=== PATIENT | female | born 1960 | race Hispanic/Latino ===

== ENCOUNTER 2020-03-06 13:14 | Inpatient (IN) | payer OTHER ==
[~2020-03-06] VITALS: Ht 160 cm; Wt 71.0 kg
[2020-03-06] MEDS ORDERED: DEXAMETHASONE SOD PHOS 10 MG/1 ML VIAL IV ONE (14:00)
[2020-03-06] MEDS ORDERED: AZITHROMYCIN 500MG/NS 250 ML 250 ML IV ONE (14:00)
[2020-03-06] MEDS ORDERED: SODIUM CHLORIDE 0.9% 500ML 500 ML IV ONE ×2 (14:00→16:30)
[2020-03-06] MEDS ORDERED: ACETAMINOPHEN 325 MG TAB PO NR (14:00)
[2020-03-06] MEDS ORDERED: SODIUM CHLORIDE 0.9% 1000ML 1,000 ML ONE ×2 (14:13→16:27)
[2020-03-06] MEDS ORDERED: ACETAMINOPHEN 325 MG TAB ONE (14:13)
[2020-03-06] MEDS ORDERED: DEXAMETHASONE SOD PHOS 10 MG/1 ML VIAL ONE (14:13)
[2020-03-06] MEDS ORDERED: AZITHROMYCIN 500MG/NS 250 ML 250 ML ONE (14:14)
--- NOTE | 2020-03-06 14:25 | Diagnostic Imaging Report ---
EXAMINATION: CXR 1 [facility] INDICATION: ^hypoxia ^[id number] ^1413 COMPARISON: None FINDINGS: AP view TUBES and LINES: None. LUNGS: Lungs are well inflated. Bilateral mid to lower lung field airspace opacities. PLEURA: No pleural effusion or pneumothorax. HEART AND MEDIASTINUM: The cardiomediastinal silhouette is enlarged. BONES AND SOFT TISSUES: No acute osseous lesion. Soft tissues are unremarkable. UPPER ABDOMEN: No free air under the diaphragm. IMPRESSION: Bilateral mid to lower lung field airspace opacities, representing moderate pulmonary edema and/or pneumonia in the appropriate clinical context. Signed by: Dr. Preston Martin MD on 03/06/2020 2:22 PM
[2020-03-06] MEDS ORDERED: VECURONIUM BROMIDE FOR INJ 20 MG VIAL ONE (14:47)
[2020-03-06] MEDS ORDERED: MIDAZOLAM HCL 2 MG/2 ML VIAL ONE (14:47)
[2020-03-06] MEDS ORDERED: SUCCINYLCHOLINE CHLORIDE 20 MG/ML 10ML VIAL ONE (14:47)
[2020-03-06] MEDS ORDERED: ENOXAPARIN SODIUM INJ 100 MG/ML SYR SC SCH (15:15)
[2020-03-06] MEDS ORDERED: CEFTRIAXONE SOD 1 GM/NS 50 ML 50 ML IV ONE ×2 (15:15→16:27)
[2020-03-06] MEDS ORDERED: SODIUM CHLORIDE FLUSH 10 ML SYR INJ PRN (16:15)
[2020-03-06] MEDS ORDERED: ENOXAPARIN SODIUM INJ 100 MG/ML SYR SC ONE (16:27)
--- NOTE | 2020-03-06 16:42 | NUR ---
FAMILY GIVEN UPDATE
[2020-03-06 18:00] VITALS: BP 157/73
[2020-03-06] MEDS ORDERED: GUAIFENESIN/CODEINE 10 ML CUP PO PRN (18:15)
[2020-03-06] MEDS ORDERED: DEXMEDETOMIDINE 200MCG/NS 50ML 50 ML IV PRN (18:25)
--- NOTE | 2020-03-06 18:32 | Consultation ---
DATE OF CONSULTATION: Pulmonary Critical Care Consultation CHIEF COMPLAINT: Dyspnea and fevers. HISTORY OF PRESENT ILLNESS: The patient is a 59-year-old woman. She has a history of hypertension. She denies any prior respiratory problems. She denies any cardiac problems. She reports feeling ill for the past 7 to 8 days. She has noticed fevers. She also has some dyspnea that worsened over the past 2 days. She has some cough. She denies chest pain. There is no nausea or vomiting. PAST SURGICAL HISTORY: 1. Status post abdominoplasty. 2. Status post cholecystectomy. PAST MEDICAL HISTORY: 1. Hypertension. 2. No prior respiratory problems. 3. No prior cardiac disease. 4. No history of diabetes. ALLERGIES: NO KNOWN DRUG ALLERGIES. SOCIAL HISTORY: The patient has never been a smoker. She is not a drinker. REVIEW OF SYSTEMS: The patient does report some fevers. There are no headache. There is no chest pain. She does have some dyspnea. She has no abdominal pain. There is no nausea or vomiting. She has no leg edema. PHYSICAL EXAMINATION: VITAL SIGNS: Shows a blood pressure of 141/64 and saturation of 93%, currently on Vapotherm. HEENT: Shows no facial swelling or erythema. CARDIAC: Reveals regular rate and rhythm with normal S1 and S2. LUNGS: Auscultation of lungs reveals clear breath sounds bilaterally. There is no wheezing. ABDOMEN: Soft and nontender. There is no rebound or guarding. EXTREMITIES: Shows no leg edema or calf tenderness. There is no cyanosis or clubbing. SKIN: Shows no rashes. NEUROLOGICAL: Shows no focal abnormalities. RADIOGRAPHIC DATA: Chest x-ray shows bilateral airspace disease, suggestive of viral pneumonia. IMPRESSION: 1. Acute respiratory failure. 2. Viral pneumonia and COVID-19. 3. Hypertension. PLAN: 1. Vapotherm. 2. Lovenox. 3. Decadron. 4. Zithromax and Rocephin. 5. Repeat electrolytes, BUN and creatinine. 6. Place the patient in prone position. Brandon Avitia MD LM/THOMASL /[id number]
--- NOTE | 2020-03-06 18:43 | NUR ---
CONSULTATION [id number]
[2020-03-06 18:58] LABS: ALANINE AMINOTRANSFERASE 24 IU/L (0-55); ALBUMIN 2.9 g/dL (3.5-5.0); ALBUMIN/GLOBULIN RATIO 0.7 (0.8-2.0); ALKALINE PHOSPHATASE 63 IU/L (40-150); BLOOD UREA NITROGEN 14 mg/dL (7-26); BUN/CREATININE RATIO 19 (6-25); CALCIUM 8.3 mg/dL (8.4-10.2); CARBON DIOXIDE 19 mmol/L (22-29); CHLORIDE 100 mmol/L (98-107); CREATININE, SERUM 0.74 mg/dL (0.57-1.11); EST GLOMERULAR FILTRATION RATE > 60 ML/MIN (60-); GLUCOSE 173 mg/dL (74-118); SODIUM 132 mmol/L (136-145)
[2020-03-06 19:00] VITALS: BP 120/56
[2020-03-06] MEDS ORDERED: REMDESIVIR 200MG/NS 100ML 200 MG in SODIUM CHLORIDE 0.9% 100 ML 100 ML IV NR (19:00)
[2020-03-06 20:00] VITALS: BP 103/55
[2020-03-06 21:00] VITALS: BP 92/51
[2020-03-06 22:28] VITALS: BP 91/55
[2020-03-06 23:00] VITALS: BP 125/64
[2020-03-07] VITALS (23 sets, daily range): BP systolic 91–139; BP diastolic 48–92
--- NOTE | 2020-03-07 04:17 | Emergency Department Note ---
History of Present Illnes History of Present Illness Chief Complaint: COVID PUI History of Present Illness This is a 59 year old female, with a history of hypertension who presents with acute onset shortness of breath that started last night, and worsening throughout the day today. Patient states that she has had a fever and chills for the past week, over 101. She denies any cough, upper respiratory symptoms, nausea, vomiting, diarrhea, chest pain, or tightness. She has had some dyspnea on exertion. Patient was tested for Covid19 last week, and received the results today, which indicated that both patient and her spouse are both positive for Covid 19. Patient states that her symptoms seemed to worsen after she received this news today. Patient has no history of asthma, and she has never smoked. Patient saw her doctor yesterday, and was prescribed a Z-Schuyler, ondansetron, and promethazine DM. She did take these medications yesterday. Historian: Patient Arrival Mode: Car [employer] Required: No Onset (how long ago): week(s) (1) Location: chest Quality: SOB Radiation: Denies non-radiation Severity: moderate Onset quality: gradual Duration (how long): hour(s) (24) Timing of current episode: constant Progression: worsening Chronicity: new Context: Denies recent illness, Denies recent immobilization, Denies new medications, Denies hx of DVT/PE Relieving factors: rest Exacerbating factors: movement Associated symptoms: Reports fever/chills, Reports shortness of breath; Denies chest pain, Denies cough, Denies nausea/vomiting Treatments prior to arrival: none Risk factors: age, obese, HTN Past Medical/Family History Physician Review I have reviewed the patient's past medical and family history. Any updates have been documented here. Past Medical History Recent Fever: Yes Clinical Suspicion of Infectio: Yes New/Unexplained Change in Ment: No Past Medical History: Hypertension Past Surgical History: Cholecysctectomy Other Surgery: Abdominoplasty Social History Smoking Cessation: Never Smoker Counseling Performed: No Alcohol Use: None Any Illegal Drug Use: No TB Exposure/Symptoms: No Physically hurt or threatened: No Family History Family history of heart diseas: No Other Last Tetanus: unknown Any Pre-Existing Lines (PICC,: No Review of Systems Review of Systems Constitutional: Reports chills, Reports fever, Reports malaise EENTM: Denies no symptoms Cardiovascular: Denies chest pain, Denies palpitations Respiratory: Reports dyspnea, Reports dyspnea on exertion; Denies chest congestion, Denies cough, Denies pain on inspiration, Denies pain with cough Gastrointestinal: Denies abdominal pain, Denies nausea, Denies vomiting Genitourinary: Reports no symptoms Musculoskeletal: Denies back pain, Denies muscle stiffness, Denies neck pain Integumentary: Reports no symptoms Neurological: Denies headache, Denies tingling, Denies weakness Psychological: Reports no symptoms, Reports depressed Endocrine: Reports no symptoms Review of other systems: All other systems negative Physical Exam Related Data Allergies: Coded Allergies: No Known Allergies (Unverified , 03/06/20) Triage Vital Signs Vital Signs Date Time Temp Pulse Resp B/P (MAP) Pulse Ox O2 Delivery O2 Flow Rate FiO2 03/06/20 13:25 100.6 102 29 149/75 59 Room Air 03/06/20 14:01 6.0 Vital signs reviewed: Yes Physical Exam CONSTITUTIONAL Constitutional: Present well-developed, Present well-nourished, Present ill appearing (slight increased respiratory rate, with no distress and no retractions) HENT HENT: Present normocephalic, Present atraumatic, Present oropharynx clear/ moist, Present nose normal; Absent nasal discharge, Absent nasal congestion HENT L/R: Present left ext ear normal, Present right ext ear normal EYES Eyes: Reports PERRL, Reports conjunctivae normal NECK Neck: Present ROM normal; Absent thyromegaly PULMONARY Pulmonary: Present other (diminished breath sounds throughout both lung blackmon, with an occasional crackle, no wheezing or rhonchi. Patient's increased respiratory rate but no stridor or increased respiratory effort. She appears comfortable.); Absent rhonchi, Absent chest tenderness CARDIOVASCULAR Cardiovascular: Present regular rhythm, Present heart sounds normal, Present capillary refill normal, Present normal rate GASTROINTESTINAL Abdominal: Present soft, Present nontender, Present bowel sounds normal; Absent tender GENITOURINARY Genitourinary: Present exam deferred SKIN Skin: Present warm, Present dry; Absent rash MUSCULOSKELETAL Musculoskeletal: Present ROM normal NEUROLOGICAL Neurological: Present alert, Present oriented x 3 PSYCHOLOGICAL Psychological: Present mood/affect normal, Present behavior normal Results Laboratory Result Diagram: 03/06/20 1820 Laboratory Laboratory Tests Test 03/06/20 18:20 Sodium Level 132 mmol/L (136-145) Potassium Level 4.0 mmol/L (3.5-5.1) Chloride Level 100 mmol/L (98-107) Carbon Dioxide Level 19 mmol/L (22-29) Anion Gap 17.0 mmol/L (8-16) Blood Urea Nitrogen 14 mg/dL (7-26) Creatinine 0.74 mg/dL (0.57-1.11) Estimat Glomerular Filtration Rate > 60 ML/MIN (60-) BUN/Creatinine Ratio 19 (6-25) Glucose Level 173 mg/dL (74-118) Calcium Level 8.3 mg/dL (8.4-10.2) Total Bilirubin 0.4 mg/dL (0.2-1.2) Aspartate Amino Transf (AST/SGOT) 60 IU/L (5-34) Alanine Aminotransferase (ALT/SGPT) 24 IU/L (0-55) Alkaline Phosphatase 63 IU/L (40-150) Total Protein 6.9 g/dL (6.5-8.1) Albumin 2.9 g/dL (3.5-5.0) Globulin 4.0 g/dL (2.3-3.5) Albumin/Globulin Ratio 0.7 (0.8-2.0) Lab results reviewed: Yes Laboratory comments ER Labs 03/06/2020: UA - ket - trace, pro - 30 mg/dl, leuk- small; CBC - WBC = 10.7, otherwise normal Metlac = Lactic Acid elevated = 2.53. Cl = 92; BNP - nl; Cardiacs nl; D-dimer = 1950; Repeat Lactic Acid in 2 hours = 1.41; Imaging Imaging results reviewed: Yes Impressions [place] [address] Patient Name: YAW WILLAMS MR #: [id number] : 1960 Age/Sex: 59/F Req #: [id number] Adm Physician: Ordered by: RADHA ERNST MD Report #: [id number] Location: [facility] Room/Bed: Procedure: [id number] HOPD/CXR 1 VEW - [facility] Exam Date: 03/06/20 Exam Time: 1413 REPORT STATUS: Signed EXAMINATION: CXR 1 [facility] - [facility] INDICATION: ^hypoxia ^[id number] ^1413 COMPARISON: None FINDINGS: AP view TUBES and LINES: None. LUNGS: Lungs are well inflated. Bilateral mid to lower lung field airspace opacities. PLEURA: No pleural effusion or pneumothorax. HEART AND MEDIASTINUM: The cardiomediastinal silhouette is enlarged. BONES AND SOFT TISSUES: No acute osseous lesion. Soft tissues are unremarkable. UPPER ABDOMEN: No free air under the diaphragm. IMPRESSION: Bilateral mid to lower lung field airspace opacities, representing moderate pulmonary edema and/or pneumonia in the appropriate clinical context. Signed by: Dr. Preston Call MD on 03/06/2020 2:22 PM Dictated By: PRESTON CALL MD 1422 Transcribed By: NOELLE on 03/06/20 1422 COPY TO: RADHA ERNST MD~ Now Diagnostics Tests Diagnostic test(s) reviewed: Yes Assessment & Plan Medical Decision Making MDM - Patient diagnosed with Covid 19, now with Covid pneumonia and significant hypoxia. Patient is on nonrebreather with sats at 90 and 92%. - Patient met initial sepsis criteria due to tachycardia, increased respiratory rate, suspected Covid pneumonia and elevated lactic acid level. Patient received gentle hydration, IV antibiotics for pneumonia and it two-hour repeat lactic acid was within normal limits. - Discussed with Dr. Stone, who was agreeable to admitting patient to the ICU it [facility]. Request Dr. Avitia, pulmonary, to consult. I attempted to contact Dr. Andrea Avitia by phone, 3 times, without access. The floor will notify him once patient arrives to the ICU., - Updated patient's spouse, by phone, her condition, diagnoses, and transferred to the ICU it [facility]. The spouse voiced understanding of the plan, and his questions were answered. Sepsis Protocol followed due to: COVID pneumonia, tachycardia, increased RR, and Lactic Acid = 2.54. Time Zero = 14:15, Rocephin and Zithromax infused for Pneumonia, after BC obtained. Repeat Lactic Acid drawn in 2 hours, and was 1.4. 30cc/kd IV fluid bolus was not given, due to patient having COvid Pneumonia and patient was never hypotensive. Assessment & Plan Final Impression: (1) Pneumonia due to COVID-19 virus (2) Hypoxia (3) Sepsis (4) Hypertension Depart Disposition: ADMITTED (Transferred to [facility] via EMS, to the MICU;) Last Vital Signs Date Time Temp Pulse Resp B/P (MAP) Pulse Ox O2 Delivery O2 Flow Rate FiO2 03/07/20 03:00 Nasal Cannula 40.0 03/07/20 03:00 98.5 70 18 103/51 (68) 96 Medications in the ED Sodium Chloride 500 ml @ 0 mls/hr Q0M ONCE IV Last administered on 03/06/20at 14:15; Admin Dose 500 MLS/HR; Start 03/06/20 at 14:00; Stop 03/06/20 at 14:01; Status DC Dexamethasone Sodium Phosphate 10 mg ONCE ONCE IV Last administered on 03/06/20at 14:15; Admin Dose 10 MG; Start 03/06/20 at 14:00; Stop 03/06/20 at 14:08; Status DC Acetaminophen 975 mg ONCE PO Last administered on 03/06/20at 14:20; Admin Dose 975 MG; Start 03/06/20 at 14:00; Stop 03/06/20 at 15:00; Status DC Azithromycin 250 ml @ 250 mls/hr NOW ONCE IV Last administered on 03/06/20at 14:17; Admin Dose 250 MLS/HR; Start 03/06/20 at 14:00; Stop 03/06/20 at 14:59; Status DC Dexamethasone Sodium Phosphate 10 mg STK-MED ONCE .ROUTE ; Start 03/06/20 at 14:13; Stop 03/06/20 at 14:08; Status DC Acetaminophen 975 mg STK-MED ONCE .ROUTE ; Start 03/06/20 at 14:13; Stop 03/06/20 at 14:08; Status DC Sodium Chloride 1,000 ml @ ud STK-MED ONCE .ROUTE ; Start 03/06/20 at 14:13; Stop 03/06/20 at 14:08; Status DC Azithromycin 250 ml @ ud STK-MED ONCE .ROUTE ; Start 03/06/20 at 14:14; Stop 03/06/20 at 14:08; Status DC Ceftriaxone Sodium 50 ml @ 100 mls/hr ONCE ONCE IV Last administered on 03/06/20at 16:30; Admin Dose 100 MLS/HR; Start 03/06/20 at 15:15; Stop 03/06/20 at 15:44; Status DC Enoxaparin Sodium 80 mg ONCE SC Last administered on 03/06/20at 16:25; Admin Dose 80 MG; Start 03/06/20 at 15:15; Stop 03/06/20 at 17:05; Status DC RADHA ERNST MD Mar 07, 2020 04:17
[2020-03-07 05:25] LABS: BASOPHILS % 0.1 % (0.0-1.0); HEMATOCRIT 35.3 % (34.2-44.1); HEMOGLOBIN 12.1 g/dL (12.0-16.0); LYMPHOCYTES # (AUTO) 0.9 (1.0-3.2); LYMPHOCYTES % 7.9 % (18.0-39.1); MEAN CORPUSCULAR HEMOGLOBIN 29.7 pg (28-32); MEAN CORPUSCULAR HGB CONC 34.3 g/dL (31-35); MEAN CORPUSCULAR VOLUME 86.5 fL (81-99); MONOCYTES # (AUTO) 0.2 (0.2-0.8); MONOCYTES % 1.8 % (4.4-11.3); NEUTROPHILS # (AUTO) 9.7 (2.1-6.9); NEUTROPHILS % 89.4 % (38.7-80.0); PLATELET COUNT 203 x10e3/uL (140-360); RED BLOOD COUNT 4.08 x10e6/uL (3.6-5.1); RED CELL DISTRIBUTION WIDTH 12.6 % (11.7-14.4)
[2020-03-07 07:21] LABS: ALANINE AMINOTRANSFERASE 27 IU/L (0-55); ALBUMIN 2.7 g/dL (3.5-5.0); ALBUMIN/GLOBULIN RATIO 0.6 (0.8-2.0); ALKALINE PHOSPHATASE 71 IU/L (40-150); ANION GAP 14.1 mmol/L (8-16); BLOOD UREA NITROGEN 14 mg/dL (7-26); BUN/CREATININE RATIO 21 (6-25); CALCIUM 8.8 mg/dL (8.4-10.2); CARBON DIOXIDE 23 mmol/L (22-29); CHLORIDE 103 mmol/L (98-107); CREATININE, SERUM 0.66 mg/dL (0.57-1.11); EST GLOMERULAR FILTRATION RATE > 60 ML/MIN (60-); GLUCOSE 156 mg/dL (74-118); POTASSIUM 4.1 mmol/L (3.5-5.1); SODIUM 136 mmol/L (136-145)
--- NOTE | 2020-03-07 08:52 | Diagnostic Imaging Report ---
EXAMINATION: CHEST SINGLE (PORTABLE) INDICATION: Viral pneumonia COMPARISON: Chest radiograph 03/06/2020 FINDINGS: LINES/TUBES:None LUNGS:Interval increase in bilateral lower lung predominant hazy and consolidative opacities. PLEURA:No pleural effusion or pneumothorax. MEDIASTINUM:The cardiomediastinal silhouette appears normal in size and shape. BONES/SOFT TISSUES:No acute osseous injury. ABDOMEN:No free air under the diaphragm. IMPRESSION: Interval increase in bilateral lower lung hazy and consolidative opacities, consistent with provided history of viral pneumonia. Signed by: Alejandro Dwyer MD on 03/07/2020 8:48 AM
[2020-03-07] MEDS: ENOXAPARIN SOD INJ 40 MG/0.4 ML SYR SC SCH ×2 (08:59→20:47)
[2020-03-07] MEDS ORDERED: AZITHROMYCIN 500MG/SOD CHL 0.9% 250ML BAG IV SCH (09:00)
[2020-03-07] MEDS ORDERED: CEFTRIAXONE SOD 1 GRAM/0.9% SOD CHL 50ML BAG IV SCH (09:00)
[2020-03-07] MEDS ORDERED: DEXAMETHASONE PHOS 4MG/ML 5ML MULTIDOSE VIAL IV SCH (09:00)
--- NOTE | 2020-03-07 09:31 | NUR ---
PATIENT PRONED. TOLERATED WELL.
--- NOTE | 2020-03-07 11:05 | Progress Note ---
DATE: Pulmonary Critical Care Progress Note SUBJECTIVE: The patient is on Vapotherm in the prone position. She has Precedex. She is on 40 L with 100% and is saturating at 100%. She does not appear in distress. PHYSICAL EXAMINATION: VITAL SIGNS: The patient is afebrile. The blood pressure is 124/61 and saturation is 98%. Pulse is 73. HEENT: Shows no facial swelling or erythema. CARDIAC: Normal cardiac exam with a regular rate and rhythm with normal S1 and S2. LUNGS: Auscultation of lungs reveals crackles at the bases. There is no wheezing. ABDOMEN: Soft and nontender. There is no rebound or guarding. EXTREMITIES: Shows no leg edema or calf tenderness. There is no cyanosis or clubbing. SKIN: Shows no rashes. NEUROLOGICAL: Shows no focal abnormalities. LABORATORY DATA: The white blood cell count is 10.9 and hemoglobin is 12.1. Platelet count is 203. BUN to creatinine ratio is 14 to 0.66. Other electrolytes are within normal limits. The albumin is 2.7. RADIOGRAPHIC DATA: Chest x-ray is significant for bilateral hazy infiltrates. IMPRESSION: 1. Acute respiratory failure. 2. COVID-19 and viral pneumonia. 3. Hypertension. PLAN: 1. Continue Vapotherm. 2. Continue to use prone ventilation as much as possible. 3. Continue Precedex. 4. The patient started on remdesivir. 5. Continue Decadron. 6. Zithromax and Rocephin. 7. Case discussed with Respiratory, nursing, Internal Medicine, and the patient. Greater than 35 minutes in direct critical care time. Brandon Avitia MD [facility]/MODL /[id number]
[2020-03-07] MEDS: DEXAMETHASONE PHOS 4MG/ML 6 MG in SODIUM CHLORIDE 0.9% 50ML 50 ML IV SCH (12:00)
[2020-03-07] MEDS ORDERED: ACETAMINOPHEN 325 MG SUPP PR PRN (12:00)
[2020-03-07] MEDS: REMDESIVIR 100MG/NS 100ML 100 MG in SODIUM CHLORIDE 0.9% 100 ML 100 ML IV SCH (14:00)
[2020-03-07] MEDS: AZITHROMYCIN 500MG/NS 250 ML 250 ML IV SCH (14:32)
[2020-03-07] MEDS: CEFTRIAXONE SOD 1 GM/NS 50 ML 50 ML IV SCH (15:30)
[2020-03-07] MEDS: ASCORBIC ACID 500 MG TAB PO SCH ×2 (16:21→17:00)
[2020-03-07] MEDS: ZINC SULFATE 220 MG CAP PO SCH ×2 (16:21→17:00)
[2020-03-07] MEDS: FAMOTIDINE 20 MG/2 ML VIAL IV SCH (16:21)
[2020-03-07] MEDS: ONDANSETRON HCL INJ 2MG/ML 2ML 2 MG/ML VIAL IV PRN (16:30)
--- NOTE | 2020-03-07 16:52 | Progress Note ---
DATE: SUBJECTIVE: Ms. Gooden is currently in the intensive care unit. She is feeling better. She is on remdesivir day #2. PHYSICAL EXAMINATION: GENERAL: She is currently alert, oriented, does not seem in acute distress. VITAL SIGNS: Stable, currently afebrile. HEENT: She is not icteric. NECK: Supple. CHEST: Crackles bilateral. COR: S1, S2. No murmurs. ABDOMEN: Soft. Bowel sounds present. No tenderness. EXTREMITIES: No edema. IMPRESSION: Coronavirus disease-19, respiratory failure, hypertension. Day #2 remdesivir, Decadron 10 days, azithromycin, Rocephin. Respiratory management as per Critical Care. We will follow. MD MARJAN Rapp/SHELLIE /[id number]
--- NOTE | 2020-03-07 18:53 | Consultation ---
DATE OF CONSULTATION: HISTORY OF PRESENT ILLNESS: Ms. Gooden is a 59-year-old female who has history of hypertension, comes in with fever and chills for 8 days. The patient has history of cholecystectomy and hypertension. The patient came to the hospital. Blood cultures are negative. Her white count is 10, hemoglobin 12. Sodium 136, potassium 4.1. PHYSICAL EXAMINATION: GENERAL: She is currently alert, oriented, does not seem in acute distress. VITAL SIGNS: Stable, currently afebrile and she is currently on high-flow 40% oxygen. HEENT: She is not icteric. NECK: Supple. CHEST: Crackles bilaterally. COR: S1 and S2. ABDOMEN: Soft. IMPRESSION AND PLAN: Coronavirus disease-19 pneumonia, superimposed bacterial pneumonia. We will put the patient on Lovenox 0.5 mg/kg q.12 hours, Rocephin 1 g daily five days, azithromycin 10 mg daily for 3 days, and dexamethasone 6 mg daily. Remdesivir was started. The patient did agree to it. Discussed with the patient that remdesivir is still experimental drug and she is agreed to it. We will start at 200 mg IV piggyback down then 100 daily for four more days. MD MARJAN Rapp/SHELLIE /[id number]
--- NOTE | 2020-03-07 19:22 | NUR ---
Patient with noted respiratory effort, Dr Rodney Avitia to bedside; decision to intubate.
[2020-03-07] MEDS ORDERED: MIDAZOLAM HCL 5MG/ML 10ML VIAL 100 ML IV ONE (19:36)
--- NOTE | 2020-03-07 20:13 | Operative Report ---
DATE OF PROCEDURE: SURGEON: Brandon Avitia MD PROCEDURE: Endotracheal intubation with a GlideScope. PREOPERATIVE DIAGNOSIS: Respiratory failure. POSTOPERATIVE DIAGNOSIS: Respiratory failure. MEDICATIONS: Versed 1 mg, etomidate 20 mg, and succinylcholine 100 mg. CONSENT: Consent was obtained from the patient. DESCRIPTION OF PROCEDURE: The patient was placed in a supine position. She was preoxygenated with a Vapotherm. She received Versed followed by etomidate and succinylcholine. She required Ambu bagging with a PEEP valve and oral airway prior to intubation. Her saturating increased to the mid 90s. A 3-0 Mac blade was used to visualize the glottis. A 7.5 endotracheal tube was passed on the first attempt. There was good CO2 return and equal breath sounds bilaterally. The patient required Ambu bag. Again after intubation, she increases sats into the mid 90s. COMPLICATIONS: None. ESTIMATED BLOOD LOSS: None. Brandon Avitia MD [facility]/THOMASL /[id number]
[2020-03-07] MEDS ORDERED: SODIUM CHLORIDE 0.9% 500ML 500 ML ONE (21:00)
--- NOTE | 2020-03-07 22:24 | Diagnostic Imaging Report ---
EXAMINATION: CHEST XRAY LINE PLACEMENT INDICATION: ^pIcc LINE, ett, OG PLACEMENT ^[id number] ^2123 ^Y COMPARISON: Chest x-ray 03/07/2020 None FINDINGS: TUBES and LINES: ET tube 7 mm above indio. Enteric tube courses into abdomen, tip in the left upper abdomen. Right upper extremity PICC tip terminates in the expected location of the left innominate vein. LUNGS: Normal lung volumes. Haziness in the right upper to lower lung and left mid to lower lung. PLEURA: No pleural effusion or pneumothorax. HEART AND MEDIASTINUM: The cardiomediastinal silhouette is unremarkable. BONES AND SOFT TISSUES: No acute osseous lesion. Soft tissues are unremarkable. UPPER ABDOMEN: No free air under the diaphragm. IMPRESSION: ET tube 7 mm above indio, suboptimal/low position, recommend 2-3 cm retraction. Right upper extremity PICC tip terminates in the expected location of the left innominate vein, suboptimal position. Enteric tube courses into abdomen, tip in the left upper abdomen. Extensive airspace disease. Signed by: Colton Vera DO on 03/07/2020 10:20 PM
--- NOTE | 2020-03-07 22:27 | Diagnostic Imaging Report ---
EXAM: Abdomen Radiograph 1 View) INDICATION: Enteric tube placement, verify position COMPARISON: Same-day chest x-ray FINDINGS: Haziness in the lower lungs. Enteric tube courses into the stomach, to the pylorus, and back up to the proximal gastric body lumen. Normal volume of stool in the colon. No dilated loops of small bowel. No abnormal abdominal calcifications.. No abnormal soft tissue masses. No pneumoperitoneum. No acute osseous abnormality. IMPRESSION: Enteric tube courses into the stomach, to the pylorus, and back up to the expected location of the proximal gastric body lumen. Haziness in the lower lungs. Signed by: Colton Vera DO on 03/07/2020 10:24 PM
[2020-03-07] MEDS ORDERED: LACTATED RINGER'S 1,000 ML INJ ONE (23:00)
[2020-03-08] VITALS (33 sets, daily range): BP systolic 96–122; BP diastolic 47–61
--- NOTE | 2020-03-08 00:07 | Diagnostic Imaging Report ---
EXAMINATION: CHEST XRAY LINE PLACEMENT INDICATION: PICC placement, verify position. COMPARISON: Earlier same day chest x-ray FINDINGS: TUBES and LINES: Mild advancement of the ET tube now with tip at the right main stem bronchus origin. Interval repositioning of right upper extremity PICC, now with tip in the superior cavoatrial junction. Enteric tube tip in the left upper abdomen. LUNGS: Normal lung volumes. Hazy mid/lower lungs bilaterally, worse in the medial left lower lobe with partial hemidiaphragm obscuration... PLEURA: No pleural effusion or pneumothorax. HEART AND MEDIASTINUM: The cardiomediastinal silhouette is unremarkable. BONES AND SOFT TISSUES: No acute osseous lesion. Soft tissues are unremarkable. UPPER ABDOMEN: No free air under the diaphragm. IMPRESSION: Slight advancement of the ET tube now with tip at the right main stem bronchus origin, recommend 3 cm retraction. Partial obscuration of the central left hemidiaphragm, left lower lobe atelectasis is possible. Interval repositioning of right upper extremity PICC, now with tip in the superior cavoatrial junction, ideal in position. Signed by: Colton Vera DO on 03/08/2020 12:04 AM
--- NOTE | 2020-03-08 00:33 | NUR ---
X-ray results read to Ankit LUCAS PICC line nurse. Ordered okay to use. Sanjana LUCAS notified as well.
[2020-03-08 00:49] LABS: ABG PCO2 27 mmHg (35-45); ABG PH 7.43 (7.35-7.45); ABG PO2 99 mmHg (80-105)
[2020-03-08 00:50] LABS: ABG HCO3 18 mmol/L (22-26)
[2020-03-08] MEDS: MIDAZOLAM HCL 5MG/ML 10ML VIAL 100 ML IV PRN (01:21)
[2020-03-08 05:48] LABS: BASOPHILS % 0.1 % (0.0-1.0); HEMATOCRIT 33.8 % (34.2-44.1); HEMOGLOBIN 11.6 g/dL (12.0-16.0); LYMPHOCYTES # (AUTO) 0.8 (1.0-3.2); LYMPHOCYTES % 6.7 % (18.0-39.1); MEAN CORPUSCULAR HEMOGLOBIN 30.1 pg (28-32); MEAN CORPUSCULAR HGB CONC 34.3 g/dL (31-35); MEAN CORPUSCULAR VOLUME 87.8 fL (81-99); MONOCYTES # (AUTO) 0.4 (0.2-0.8); MONOCYTES % 3.2 % (4.4-11.3); NEUTROPHILS # (AUTO) 10.9 (2.1-6.9); NEUTROPHILS % 88.7 % (38.7-80.0); PLATELET COUNT 237 x10e3/uL (140-360); RED BLOOD COUNT 3.85 x10e6/uL (3.6-5.1); RED CELL DISTRIBUTION WIDTH 12.7 % (11.7-14.4)
[2020-03-08 06:44] LABS: ALANINE AMINOTRANSFERASE 26 IU/L (0-55); ALBUMIN 2.4 g/dL (3.5-5.0); ALBUMIN/GLOBULIN RATIO 0.6 (0.8-2.0); ALKALINE PHOSPHATASE 71 IU/L (40-150); ANION GAP 14.3 mmol/L (8-16); BUN/CREATININE RATIO 33 (6-25); CALCIUM 8.3 mg/dL (8.4-10.2); CARBON DIOXIDE 21 mmol/L (22-29); CHLORIDE 107 mmol/L (98-107); CREATININE, SERUM 0.66 mg/dL (0.57-1.11); EST GLOMERULAR FILTRATION RATE > 60 ML/MIN (60-); GLUCOSE 154 mg/dL (74-118); POTASSIUM 4.3 mmol/L (3.5-5.1); SODIUM 138 mmol/L (136-145)
[2020-03-08 06:53] LABS: BLOOD UREA NITROGEN 22 mg/dL (7-26)
[2020-03-08 07:18] LABS: CHOL/HDL RATIO 6.4 (3.0-3.6); MAGNESIUM 2.4 MG/DL (1.3-2.1); PHOSPHORUS 3.1 MG/DL (2.3-4.7)
[2020-03-08 07:38] LABS: THYROID STIMULATING HORMONE 0.567 uIU/mL (0.350-4.940)
[2020-03-08 08:38] LABS: ABG PH 7.42 (7.35-7.45)
[2020-03-08 08:39] LABS: ABG HCO3 22 mmol/L (22-26); ABG PCO2 33 mmHg (35-45); ABG PO2 226 mmHg (80-105)
--- NOTE | 2020-03-08 08:45 | Diagnostic Imaging Report ---
X-ray chest AP portable Comparison: 03/07/2020 History: Covid Findings: The endotracheal tube may be retracted approximately 3 cm. A nasogastric tube is seen coursing down the expected past with the tip in the left upper quadrant of abdomen. PICC line is seen in place with the tip overlying right atrium. There is no pleural effusion. There is no pneumothorax. There is dense bilateral airspace disease with slight improvement compared with the previous exam. No acute bony or extrathoracic soft tissue changes. Impression: Slight improvement in the aeration. The endotracheal tube may be retracted approximately 2-3 cm. Signed by: Dominick Rodriguez MD on 03/08/2020 8:42 AM
[2020-03-08] MEDS ORDERED: SODIUM CHLORIDE 0.9% 250ML 250 ML ONE ×2 (08:46→16:56)
[2020-03-08] MEDS: ZINC SULFATE 220 MG CAP PO SCH ×2 (08:52→17:30)
[2020-03-08] MEDS: ASCORBIC ACID 500 MG TAB PO SCH ×2 (08:52→17:30)
[2020-03-08] MEDS: ENOXAPARIN SOD INJ 40 MG/0.4 ML SYR SC SCH ×2 (08:52→20:30)
[2020-03-08] MEDS: FAMOTIDINE 20 MG/2 ML VIAL IV SCH ×2 (08:52→17:30)
--- NOTE | 2020-03-08 10:06 | Operative Report ---
DATE OF PROCEDURE: SURGEON: Brandon Avitia MD PROCEDURE: Arterial line placement under ultrasound guidance. PREOPERATIVE DIAGNOSIS: Respiratory failure. POSTOPERATIVE DIAGNOSIS: Respiratory failure. CONSENT: Consent was obtained from the patient. MEDICATIONS: The patient was on Versed and fentanyl drip at the time of the procedure. 1% lidocaine for local anesthesia. DESCRIPTION OF PROCEDURE: Left wrist was prepped sterilely. An ultrasound machine was used to locate the radial artery. The radial artery was cannulated with a 20-gauge needle. I was unable to pass the wire through the needle. The needle was removed and pressure was held. The patient was re-prepped in the right wrist. The radial artery was located with an ultrasound machine. The radial artery was cannulated with a 20-gauge needle under direct visualization. A wire was passed through the needle without difficulty and a 20-gauge catheter was passed over the wire by the Seldinger technique. COMPLICATIONS: None. ESTIMATED BLOOD LOSS: None. Brandon Avitia MD [facility]/MODL /[id number]
--- NOTE | 2020-03-08 10:09 | Progress Note ---
DATE: SUBJECTIVE: The patient was intubated last night. She is now on a PRVC mode of ventilation at a rate of 28 with a tidal volume of 350. Her PEEP is set at 16 and FiO2 is set at 70%. Her saturation is 98%. She is on Versed and fentanyl. She continues to have some bradycardia. PHYSICAL EXAMINATION: VITAL SIGNS: The blood pressure is 108/51 and the heart rate is 54. Saturation is 100%. HEENT: No facial swelling or erythema. CARDIAC: Bradycardia with normal S1, S2. LUNGS: Auscultation of lungs reveals rhonchorous breath sounds bilaterally. There is no wheezing. ABDOMEN: Soft, nontender. There is no rebound or guarding. EXTREMITIES: No leg edema or calf tenderness. There is no cyanosis or clubbing. SKIN: No rashes. NEUROLOGICAL: The patient to be sedated. LABORATORY DATA: Blood gases 7.42, 33, 226, and 22. The BUN to creatinine ratio is 22 to 0.66 and the albumin is 2.4. The white blood cell count is 12.3 and hemoglobin is 11.6, and platelet count is 237. RADIOGRAPHIC DATA: Chest x-ray shows bilateral infiltrates. IMPRESSION: 1. Acute respiratory failure. 2. Coronavirus disease-19 and viral pneumonia. 3. Hypertension. PLAN: 1. Continue current mode of ventilation and monitor ABGs. 2. Continue Versed and fentanyl. 3. Complete remdesivir. 4. Complete Decadron. 5. Zithromax and Rocephin. Case discussed with Respiratory, Nursing shift boss, nursing dayshift, Infectious Disease, and family. Case also discussed with administration. Greater than 35 minutes in direct critical care time. Brandon Avitia MD LM/THOMASL /[id number]
[2020-03-08] MEDS: AZITHROMYCIN 500MG/NS 250 ML 250 ML IV SCH (13:05)
[2020-03-08] MEDS: DEXAMETHASONE PHOS 4MG/ML 6 MG in SODIUM CHLORIDE 0.9% 50ML 50 ML IV SCH (13:05)
[2020-03-08] MEDS: REMDESIVIR 100MG/NS 100ML 100 MG in SODIUM CHLORIDE 0.9% 100 ML 100 ML IV SCH (13:05)
[2020-03-08] MEDS ORDERED: HEPARIN SOD (PORCINE) 1000 UNIT/ML 30ML ONE (13:42)
[2020-03-08] MEDS ORDERED: LIDOCAINE HCL 2% LOCAL 20 ML VIAL ONE (13:43)
[2020-03-08] MEDS ORDERED: FENTANYL CITRATE/PF 100MCG/2 ML INJ ONE (13:43)
[2020-03-08] MEDS ORDERED: IOPAMIDOL 370 MG/ML 200 ML INFUS..BTL INJ ONE (13:44)
[2020-03-08] MEDS ORDERED: SODIUM CHLORIDE 0.9% 1000ML 0 ML ONE (13:44)
[2020-03-08] MEDS ORDERED: HEPARIN SOD/SOD CHLORIDE 1,000 ML ONE (13:44)
[2020-03-08] MEDS ORDERED: NITROGLYCERIN/D5W 200 MCG/ML 0 ML ONE (13:45)
[2020-03-08] MEDS ORDERED: MIDAZOLAM HCL 2 MG/2 ML VIAL ONE (13:45)
--- NOTE | 2020-03-08 16:06 | Consultation ---
DATE OF CONSULTATION: Cardiology Consult Note: The patient is intubated and sedated. HPI information is from medical record. HISTORY OF PRESENT ILLNESS: Teresa Sewell is a 59-year-old female with a primary history of hypertension, admitted complaining of feeling ill for the past seven days, accompanied with cough and fever and worsening shortness of breath without any chest pain. MEDICAL HISTORY: Hypertension. SURGICAL HISTORY: Abdominoplasty and cholecystectomy. ALLERGIES: NO KNOWN DRUG ALLERGIES. SOCIAL HISTORY: The patient is a nonsmoker and non-alcohol drinker. PHYSICAL EXAMINATION: CURRENT VITAL SIGNS: Blood pressure 120/54, respirations 30, heart rate of 53, sinus bradycardia, 94% SpO2 on PRVC mode of ventilation at a rate of 30 with tidal volume of 360, PEEP of 12 and FiO2 of 60%. GENERAL APPEARANCE: The patient is well developed and well nourished, intubated and sedated. HEAD: Normocephalic and atraumatic. EYES: Pupils are equally round, reactive to light and accommodation. NECK: Supple. Full range of motion. No lymphadenopathy. No masses noted. SKIN: Warm and dry. No suspicious lesions. HEART: Sinus bradycardia and regular rate, S1 and S2 normal. No murmurs heard. LUNGS: Diminished. No wheezing heard on auscultation. ABDOMEN: Soft, nontender, nondistended. Bowel sounds are present. EXTREMITIES: No cyanosis, no edema. NEUROLOGIC: The patient is intubated and on sedation. LABORATORY: Sodium is 138, potassium is 4.3, chloride is 107, CO2 is 21, BUN is 22, creatinine is 0.86, and glucose is 154. White count is 12.3, hemoglobin 11.6, hematocrit 33.8, and platelets 237. RADIOGRAPHIC DATA: Chest x-ray shows bilateral airspace disease suggestive of viral pneumonia. IMPRESSION AND PLAN: The patient is a 59-year-old, admitted with, 1. Fluid volume overload. Pulmonary edema. 2. Hypertension. 3. Hyperlipidemia. 4. Acute respiratory failure. Coronavirus disease-19 infection. Viral pneumonia. PLAN: 1. Monitor hemodynamics closely in the ICU. 2. Echocardiogram to evaluate valves and LV function. 3. Diurese as needed and monitor intake and output and electrolytes and replace electrolytes as needed. 4. Continue with COVID-19 infection/viral pneumonia management per primary team/Critical Care team. 5. Further recommendations will follow according to the patient's clinical course. Thank you for this consultation. We will continue to follow. Dictated by Lesia Milligan, FLASH WELDING MACHINE OPERATOR MD TUSHAR Rodríguez/SHELLIE /[id number]
--- NOTE | 2020-03-08 16:41 | Progress Note ---
DATE: SUBJECTIVE: Ms. Gooden remains in intensive care unit. The patient was intubated yesterday. She is on PRVC mode, rate of 28, tidal volume 350, PEEP is 16, FiO2 of 70, on Versed and fentanyl. PHYSICAL EXAMINATION: VITAL SIGNS: Stable, heart rate 54. HEENT: Normocephalic. NECK: Supple. CHEST: Few crackles. HEART: S1 and S2. No S3, S4, or murmur. ABDOMEN: Soft. IMPRESSION: Respiratory failure, COVID-19, hypertension. So far, all cultures are negative. White count is 12.23, hemoglobin 11. Sodium 138, potassium 4.3, creatinine 0.66. Continue dexamethasone. We will discontinue remdesivir since she is on a ventilator. Continue with Lovenox . We will follow. MD MARJAN Rapp/MODL /[id number]
[2020-03-08] MEDS: CEFTRIAXONE SOD 1 GM/NS 50 ML 50 ML IV SCH (17:30)
--- NOTE | 2020-03-08 19:18 | NUR ---
dr. gold consulted for ekg changes. echo done and labs drawn . results given to dr. brito. decided to medically manage patient and continue to monitor. patient otherwise no changes today. hr 40-50's. bp wnl. afebrile
[2020-03-08 22:32] LABS: ABG HCO3 21 mmol/L (22-26); ABG PCO2 30 mmHg (35-45); ABG PH 7.45 (7.35-7.45); ABG PO2 61 mmHg (80-105)
[2020-03-09] VITALS (22 sets, daily range): BP systolic 101–138; BP diastolic 48–66
--- NOTE | 2020-03-09 04:14 | Progress Note ---
DATE: 03/08/2020 CONSULTING PHYSICIANS: 1. Dr. Chula Schwab. 2. Dr. Brandon Avitia with Pulmonology Critical Care Medicine. 3. Dr. Iain Avitia, with Cardiology. SUBJECTIVE: The patient is orally intubated on mechanical ventilation and sedated. Events overnight. The patient was intubated. Arterial line was placed. Per Cardiology note, the patient with fluid volume overload. OBJECTIVE: VITAL SIGNS: Temperature 97.7, heart rate 48, blood pressure 108/51, respirations 32, oxygen saturation 100%. Intake and output, 1422 mL in and 1300 mL out. GENERAL: Supine. LUNGS: Rhonchorous breath sounds bilaterally without wheezing. CARDIAC: Bradycardia with regular rate and rhythm. No murmur. ABDOMEN: Soft. Positive bowel sounds. Ballesteros catheter, nahum urine. EXTREMITIES: No clubbing, cyanosis, edema, or signs of DVT. NEUROLOGICAL: Sedated with a Versed drip at 6 mg an hour. LABORATORY DATA: WBC 12.33, hemoglobin 11.6, hematocrit 33.8, platelets 237. ABG this morning; pH 7.42, pCO2 33, PO2 226, HC03 22, oxygen saturation 100%. Base excess -3. FiO2 of 100%. Sodium 138, potassium 4.3, chloride 107, CO2 of 21, anion gap 14.3, BUN 22 and creatinine 0.66, estimated GFR greater than 60, glucose 154, calcium 8.3, total bilirubin 0.3, AST 52, ALT 26, alkaline phosphatase 71, total protein 6.3, albumin 2.4, hemoglobin A1c 5.6%, phosphorus 3.1, magnesium 2.4. Troponin I 0.004. B-type natriuretic peptide 18.1, triglycerides 194, cholesterol 83, LDL 31, HDL 13, TSH 0.567. Blood cultures x2 show no growth after 48 hours as per preliminary report. Sputum culture collected on 03/06, is pending. Chest x-ray shows slight improvement in the aeration. Endotracheal tube may be retracted approximately 2-3 cm. Echocardiogram completed on 03/08, shows ejection fraction of 60% on preliminary report. A 12-lead EKG done on 03/08, shows sinus bradycardia with a heart rate of 54. ASSESSMENT/PLAN: 1. Acute respiratory failure, status post intubation. Wean PRVC mode as tolerated as per Pulmonology/Critical Care Medicine. 2. Sepsis due to viral pneumonia from COVID-19. Remdesivir discontinued by Infectious Disease, since the patient is on the ventilator. Continue dexamethasone, azithromycin/Rocephin, Lovenox, vitamin C, zinc sulfate. 3. Controlled hypertension. Monitor blood pressure. Cardiology following. Continue same. 4. Coagulopathy with elevated D-dimer due to #1. Continue Lovenox. 5. Prophylaxis. Lovenox and Pepcid. Time spent 35 minutes. Billing code 80141. Dictated by Ryan Murillo, ARETHA Félix Stone MD HWP/MODL /[id number]
[2020-03-09] MEDS ORDERED: SODIUM CHLORIDE 0.9% 250ML 250 ML ONE (04:51)
[2020-03-09 06:05] LABS: BASOPHILS % 0.1 % (0.0-1.0); HEMATOCRIT 31.8 % (34.2-44.1); HEMOGLOBIN 10.6 g/dL (12.0-16.0); LYMPHOCYTES # (AUTO) 0.7 (1.0-3.2); LYMPHOCYTES % 8.5 % (18.0-39.1); MEAN CORPUSCULAR HEMOGLOBIN 29.4 pg (28-32); MEAN CORPUSCULAR HGB CONC 33.3 g/dL (31-35); MEAN CORPUSCULAR VOLUME 88.1 fL (81-99); MONOCYTES # (AUTO) 0.5 (0.2-0.8); MONOCYTES % 5.9 % (4.4-11.3); NEUTROPHILS # (AUTO) 6.9 (2.1-6.9); NEUTROPHILS % 83.2 % (38.7-80.0); PLATELET COUNT 254 x10e3/uL (140-360); RED BLOOD COUNT 3.61 x10e6/uL (3.6-5.1); RED CELL DISTRIBUTION WIDTH 12.9 % (11.7-14.4)
[2020-03-09 06:33] LABS: ALANINE AMINOTRANSFERASE 33 IU/L (0-55); ALBUMIN 2.3 g/dL (3.5-5.0); ALBUMIN/GLOBULIN RATIO 0.6 (0.8-2.0); ALKALINE PHOSPHATASE 74 IU/L (40-150); ANION GAP 13.5 mmol/L (8-16); BLOOD UREA NITROGEN 27 mg/dL (7-26); BUN/CREATININE RATIO 42 (6-25); CARBON DIOXIDE 23 mmol/L (22-29); CHLORIDE 113 mmol/L (98-107); CREATININE, SERUM 0.65 mg/dL (0.57-1.11); EST GLOMERULAR FILTRATION RATE > 60 ML/MIN (60-); GLUCOSE 165 mg/dL (74-118); POTASSIUM 4.5 mmol/L (3.5-5.1); SODIUM 145 mmol/L (136-145)
[2020-03-09 07:43] LABS: ABG HCO3 22 mmol/L (22-26); ABG PCO2 34 mmHg (35-45); ABG PH 7.42 (7.35-7.45); ABG PO2 81 mmHg (80-105)
[2020-03-09 08:00] LABS: LYMPHOCYTES % (MANUAL) 4 % (19-48); MONOCYTES % (MANUAL) 5 % (3.4-9.0); NEUTROPHILS % (MANUAL) 91 % (40-74); PLATELET ESTIMATE ADEQUATE; PLATELET MORPHOLOGY COMMENT NORMAL; RBC MORPHOLOGY COMMENT NORMAL
--- NOTE | 2020-03-09 08:26 | Diagnostic Imaging Report ---
X-ray chest AP portable Comparison: 03/08/2020 History: Covid positive Findings: The endotracheal tube is only 14 mm from the indio. It should be retracted approximately 2.5 cm. Right arm PICC line and nasogastric tube are unchanged. No significant change in the bilateral pulmonary infiltrates. Impression: As above. Signed by: Dominick Rodriguez MD on 03/09/2020 8:23 AM
[2020-03-09] MEDS: ENOXAPARIN SOD INJ 40 MG/0.4 ML SYR SC SCH ×2 (09:13→21:59)
[2020-03-09] MEDS: ZINC SULFATE 220 MG CAP PO SCH ×2 (09:13→17:00)
[2020-03-09] MEDS: ASCORBIC ACID 500 MG TAB PO SCH ×2 (09:13→17:44)
[2020-03-09] MEDS: FAMOTIDINE 20 MG/2 ML VIAL IV SCH ×2 (09:13→18:12)
[2020-03-09] MEDS: DEXAMETHASONE PHOS 4MG/ML 6 MG in SODIUM CHLORIDE 0.9% 50ML 50 ML IV SCH (11:55)
[2020-03-09] MEDS ORDERED: LIDOCAINE HCL 4% 50 ML BTL ONE (13:26)
--- NOTE | 2020-03-09 14:35 | Progress Note ---
DATE: SUBJECTIVE: The patient remains on mechanical ventilation. She is on a PRVC mode of ventilation at rate of 26 with a tidal volume of 360. Her FiO2 is set at 60% and her PEEP is set at 14. Peak airway pressure is 36 and her mean airway pressure is 23. The patient is on Versed for sedation. She is receiving enteral feedings. PHYSICAL EXAMINATION: VITAL SIGNS: The patient is afebrile. The blood pressure is 138/62 and saturation is 97% on the above settings. HEENT: Shows no facial swelling or erythema. There is an oral endotracheal tube. There is a nasogastric tube. CARDIAC: Reveals regular rate and rhythm with normal S1 and S2. LUNGS: Auscultation of lungs reveals crackles at the bases. There is no wheezing. ABDOMEN: Soft and nontender. There is no rebound or guarding. EXTREMITIES: Shows no leg edema or calf tenderness. There is no cyanosis or clubbing. SKIN: Shows no rashes. LABORATORY DATA: BUN to creatinine ratio is 27 to 0.65. Other electrolytes are within normal limits. Albumin is 2.3. White blood cell count is 8.3 and the hemoglobin is 10.6. RADIOGRAPHIC DATA: Chest x-ray shows endotracheal tube close to the indio. There are bilateral infiltrates. IMPRESSION: 1. Acute respiratory failure. 2. COVID-19 infection and viral pneumonia. 3. Hypertension. 4. Pericarditis related to viral infection. PLAN: 1. Continue current ventilator settings and repeat ABG. 2. Place the patient in prone position. 3. Begin fentanyl in addition to Versed. 4. Complete course of Decadron. 5. Continue enteral feedings. 6. Complete antibiotics. 7. Case discussed with night guard nursing, day shift nursing, Respiratory, Cardiology, Infectious Disease, and family. Greater than 35 minutes in direct critical care time. Brandon Avitia MD [facility]/MODL /[id number]
[2020-03-09] MEDS: AZITHROMYCIN 500MG/NS 250 ML 250 ML IV SCH (14:57)
[2020-03-09] MEDS: FENTANYL 2000MCG/NS 250 250 ML IV PRN ×2 (14:58→23:03)
--- NOTE | 2020-03-09 15:11 | Diagnostic Imaging Report ---
X-ray chest AP portable. History: NG tube placement. Findings: A nasogastric tube is seen coursing down the expected path, it loops in the left upper quadrant and the tip crosses the midline and ends in the right upper quadrant. The exact location of the tip cannot be ascertained. The tube may be retracted approximately 9 cm. The pulmonary findings remain largely unchanged compared with this morning. The endotracheal tube has been retracted and is approximately 4 cm from the indio. Impression: Please see above. Signed by: Dominick Rodriguez MD on 03/09/2020 3:08 PM
--- NOTE | 2020-03-09 16:36 | Progress Note ---
DATE: SUBJECTIVE: Ms. Gooden on mechanical ventilation with PRVC of 26, tidal volume of 260, FiO2 of 60%, PEEP is 14, peak airway pressure of 36, mean airway pressure of 23. OBJECTIVE: HEENT: Normocephalic. Not icteric. NECK: Supple. CHEST: Few crackles. COR: S1 and S2. No S3, S4, or murmur. ABDOMEN: Soft. IMPRESSION: Respiratory failure, COVID-19, hypertension, pericardial effusion, and pericarditis. The patient is on azithromycin. We will discontinue dexamethasone for 10 days, vitamin C, ceftriaxone to finish 5 days, Lovenox. Remdesivir was discontinued because the patient went into respiratory failure, probably not as beneficial. Chula Schwab MD ZS/MODL /[id number]
--- NOTE | 2020-03-09 17:54 | NUR ---
Nutrition Intervention Note RD Recommendation(s) for Physician: -Recommend modifying formula to Vital High Protein @ goal rate of 60 mL/hr to better meet nutritional needs (provides 1440 kcal, 126 g protein) -Fluid management per MD Plan of Care: RD following, monitoring for tolerance and adequacy, tube feed recommendation Nutrition reason for involvement: enteral nutrition RD Assessment (03/09/20) Pt is a 59 year old female admitted with hypoxia and pneumonia due to COVID-19. Pt is currently intubated and sedated. Tube feedings were ordered yesterday. There are no previous weights in chart. Recommendations provided. Will continue to monitor. Principal Problems/Diagnoses: hypoxia, pneumonia due to COVID-19. PMH: Hypertension I/O: 730/1000 GI: soft, non-tender abdomen Skin: intact Labs: (03/09/20) Na 145, BUN 27, Glu 165, Ca 8.0, AST 50 Meds: dexmethasone, pepcid, zinc sulfate, vitamin C, antibiotics, fentanyl, hydralazine Ht: 63 inches Wt: 161 lbs (03/07) BMI: 28.5 kg/m2 IBW: 115 lbs Malnutrition Evaluation (03/09/20) Unable to assess. Will re-evaluate at follow-up as appropriate. Nutrition Prescription (Diet Order): Vital AF @ 20 mL/hr Estimated Nutritional Needs: 4467-1962 calories/day (18-20 kcal/kg CBW) Weight used 161 lbs 95-145 g protein/day (1.3-2 g pro/kg CBW) Weight used: 161 lbs Diet Adequacy: Not meeting calorie needs, Not meeting protein needs Tolerance: Tolerance pending Diet Education Needs Assessment: Diet education not indicated, patient on temporary/transition diet. Nutrition Care Level: moderate Nutrition Diagnosis: Inadequate oral intake related to acute respiratory failure/mechanical ventilation as evidenced by pt requiring enteral nutrition. Goal: Patient will meet 75-100% of estimated needs by follow up Progress: N/A Interventions: - Composition, Rate, Route, Recommended Modifications Monitoring/Evaluation: -Total energy intake, Total protein intake, Formula/Solution, Weight change Signed: Talia Hayward, RD, LD
[2020-03-09] MEDS: CEFTRIAXONE SOD 1 GM/NS 50 ML 50 ML IV SCH (18:12)
[2020-03-09] MEDS: MIDAZOLAM HCL 5MG/ML 10ML VIAL 100 ML IV PRN (18:14)
[2020-03-09] MEDS ORDERED: ROCURONIUM BROMIDE 250 MG in SODIUM CHLORIDE 0.9% 250ML 225 ML IV SCH (19:30)
[2020-03-09 20:12] LABS: ABG HCO3 21 mmol/L (22-26); ABG PCO2 34 mmHg (35-45); ABG PO2 63 mmHg (80-105)
[2020-03-10] VITALS (25 sets, daily range): BP systolic 106–151; BP diastolic 47–69
[2020-03-10] MEDS: MIDAZOLAM HCL 5MG/ML 10ML VIAL 100 ML IV PRN ×3 (01:20→21:49)
--- NOTE | 2020-03-10 03:58 | Progress Note ---
DATE: SUBJECTIVE: The patient is supine in bed, orally intubated on mechanical ventilation and sedated. Staff have been patient as tolerated. OBJECTIVE: VITAL SIGNS: Temperature 97.9, pulse 68, blood pressure 133/59, respirations 28, oxygen saturation 97%. GENERAL: Supine. LUNGS: Rhonchorous breath sounds bilaterally without wheezing. CARDIAC: Bradycardia with regular rhythm and rate. No murmur. The patient has an arterial line. ABDOMEN: Bowel sounds positive. Soft, nontender. No guarding. Ballesteros catheter with nahum urine. EXTREMITIES: Without pitting edema. No clubbing, cyanosis, or marked swelling or signs of DVT. NEUROLOGICAL: Sedated with Versed and fentanyl drips. LABORATORY DATA: WBC 8.32, hemoglobin 10.6, hematocrit 31.8, platelets 254. ABG; pH 7.4, pCO2 34, pO2 63, HCO3 21, oxygen saturation 92%. Base excess -3. FiO2 of 60%. Sodium 145, potassium 4.5, chloride 113, CO2 23, anion gap 13.5, BUN 27, creatinine 0.65, estimated GFR greater than 60, glucose 165. Fingerstick blood glucose levels 155, 171, 150. Calcium 8, total bilirubin 0.3, AST 50, ALT 33, alkaline phosphatase 74. B-type natriuretic peptide yesterday was 18.1. Today, the total protein 5.9, albumin 2.3. Preliminary sputum Gram stain with less than 25 squamous epithelial cells. White blood cells 3-10. No organisms seen. Sputum cultures pending. Chest x-ray this morning showed endotracheal tube only 14 mm from the indio, should be retracted approximately 2.5 cm. Right arm PICC line and NG tube are unchanged. No significant change in the bilateral pulmonary infiltrates. ASSESSMENT/PLAN: 1. Acute respiratory failure, status post intubation. Wean PRVC mode per Pulmonology, recommendations as tolerated. 2. Sepsis due to viral pneumonia from coronavirus disease-2019. Remdesivir discontinued by Infectious Disease as the patient went into respiratory failure. Continue azithromycin, Rocephin, Lovenox, dexamethasone, vitamin C, and zinc sulfate. Versed and fentanyl for sedation. 3. Controlled hypertension. Blood pressure 133/59 this morning. Monitor blood pressure. Cardiology is following. 4. Pericarditis related to viral infection. Continue antibiotics. 5. Coagulopathy with elevated D-dimer due to #1. Continue Lovenox. 6. Prophylaxis. Lovenox and Pepcid. Billing code [id number]. Time spent 35 minutes. Dictated by Ryan Murillo, TRAVEL MED SURG RN Félix Stone MD HWP/MODL /[id number]
[2020-03-10 05:25] LABS: BASOPHILS % 0.4 % (0.0-1.0); HEMATOCRIT 32.9 % (34.2-44.1); HEMOGLOBIN 10.7 g/dL (12.0-16.0); LYMPHOCYTES # (AUTO) 0.7 (1.0-3.2); LYMPHOCYTES % 8.8 % (18.0-39.1); MEAN CORPUSCULAR HEMOGLOBIN 29.6 pg (28-32); MEAN CORPUSCULAR HGB CONC 32.5 g/dL (31-35); MEAN CORPUSCULAR VOLUME 90.9 fL (81-99); MONOCYTES # (AUTO) 0.4 (0.2-0.8); MONOCYTES % 5.4 % (4.4-11.3); NEUTROPHILS # (AUTO) 5.9 (2.1-6.9); NEUTROPHILS % 80.2 % (38.7-80.0); PLATELET COUNT 306 x10e3/uL (140-360); RED BLOOD COUNT 3.62 x10e6/uL (3.6-5.1); RED CELL DISTRIBUTION WIDTH 13.2 % (11.7-14.4)
[2020-03-10 05:51] LABS: ALANINE AMINOTRANSFERASE 381 IU/L (0-55); ALBUMIN 2.3 g/dL (3.5-5.0); ALBUMIN/GLOBULIN RATIO 0.6 (0.8-2.0); ALKALINE PHOSPHATASE 216 IU/L (40-150); ANION GAP 12.8 mmol/L (8-16); BLOOD UREA NITROGEN 27 mg/dL (7-26); BUN/CREATININE RATIO 39 (6-25); CALCIUM 8.5 mg/dL (8.4-10.2); CARBON DIOXIDE 23 mmol/L (22-29); CHLORIDE 115 mmol/L (98-107); EST GLOMERULAR FILTRATION RATE > 60 ML/MIN (60-); GLUCOSE 171 mg/dL (74-118); POTASSIUM 4.8 mmol/L (3.5-5.1); SODIUM 146 mmol/L (136-145)
[2020-03-10] MEDS: FAMOTIDINE 20 MG/2 ML VIAL IV SCH ×2 (08:10→17:01)
[2020-03-10] MEDS: ASCORBIC ACID 500 MG TAB PO SCH ×2 (08:10→17:01)
[2020-03-10] MEDS: ENOXAPARIN SOD INJ 40 MG/0.4 ML SYR SC SCH (08:12)
[2020-03-10] MEDS: ZINC SULFATE 220 MG CAP PO SCH ×2 (08:12→17:00)
[2020-03-10] MEDS: FENTANYL 2000MCG/NS 250 250 ML IV PRN ×2 (08:13→17:03)
--- NOTE | 2020-03-10 09:05 | Diagnostic Imaging Report ---
EXAMINATION: CHEST SINGLE (PORTABLE) INDICATION: resp failure COMPARISON: Chest x-ray dated 03/09/2020 FINDINGS: TUBES and LINES: Mild advancement of the ET tube now with tip 5 cm above the indio. right upper extremity PICC, with tip in the superior cavoatrial junction. Enteric tube tip in the left upper abdomen. LUNGS/PLEURA: Increased bilateral hazy interstitial opacities which could be due to pulmonary edema or pneumonia. Increased bibasilar opacities which could be due to effusion or atelectasis. HEART AND MEDIASTINUM: The cardiomediastinal silhouette is unremarkable. BONES AND SOFT TISSUES: No acute osseous lesion. Soft tissues are unremarkable. UPPER ABDOMEN: No free air under the diaphragm. IMPRESSION: Increased bilateral hazy interstitial opacities could be due to pulmonary edema or pneumonia. Increased bibasilar opacities could be due to effusion and atelectasis. Signed by: Frankie Núñez MD on 03/10/2020 9:01 AM
[2020-03-10 09:57] LABS: ABG PH 7.34 (7.35-7.45)
[2020-03-10 09:58] LABS: ABG PCO2 45 mmHg (35-45); ABG PO2 70 mmHg (80-105)
[2020-03-10 09:59] LABS: ABG HCO3 24 mmol/L (22-26)
[2020-03-10] MEDS: DEXAMETHASONE PHOS 4MG/ML 6 MG in SODIUM CHLORIDE 0.9% 50ML 50 ML IV SCH (11:53)
[2020-03-10] MEDS: AZITHROMYCIN 500MG/NS 250 ML 250 ML IV SCH (13:04)
--- NOTE | 2020-03-10 15:25 | Progress Note ---
DATE: Pulmonary Critical Care Progress Note SUBJECTIVE: The patient remains on a PRVC mode of ventilation, rate of 24 with tidal volume of 360. FiO2 is set at 60% and her PEEP is set at 12. She remains on fentanyl and Versed. PHYSICAL EXAMINATION: VITAL SIGNS: The patient is afebrile. Blood pressure is 122/60, saturation is 97%. HEENT: Shows no facial swelling or erythema. There is an oral endotracheal tube. CARDIAC: Reveals a regular rate and rhythm with normal S1 and S2. LUNGS: Auscultation of lungs reveals crackles at the bases. There is no wheezing. ABDOMEN: Soft, nontender. There is no rebound or guarding. EXTREMITIES: Shows no leg edema or calf tenderness. There is no cyanosis or clubbing. SKIN: Shows no rash. NEUROLOGICAL: Shows no focal abnormalities. LABORATORY DATA: BUN to creatinine ratio is 27 to 0.7. Albumin is 2.3. White blood cell count is 7.3 and hemoglobin 7.7. The platelet count is 306. RADIOGRAPHIC DATA: Chest x-ray shows bilateral pulmonary infiltrates. IMPRESSION: 1. Acute respiratory failure. 2. Coronavirus disease-19 and viral pneumonia. 3. Hypertension. 4. Pericarditis. PLAN: 1. Continue PRVC mode of ventilation. 2. Place in prone position tonight. 3. Continue enteral feedings. 4. Continue Lovenox. 5. Complete dexamethasone. 6. Case discussed with nightshift nursing, dayshift nursing, Respiratory, and Internal Medicine. Greater than 25 minutes in direct critical care time. Brandon Avitia MD [facility]/THOMASL /[id number]
[2020-03-10] MEDS: CEFTRIAXONE SOD 1 GM/NS 50 ML 50 ML IV SCH (17:01)
[2020-03-10] MEDS: ACETAMINOPHEN 325 MG TAB PO PRN (21:16)
[2020-03-11] VITALS (28 sets, daily range): BP systolic 117–189; BP diastolic 51–81
[2020-03-11 01:05] LABS: ABG HCO3 24 mmol/L (22-26); ABG PCO2 39 mmHg (35-45); ABG PH 7.39 (7.35-7.45); ABG PO2 68 mmHg (80-105)
[2020-03-11] MEDS: ENOXAPARIN SOD INJ 40 MG/0.4 ML SYR SC SCH ×3 (01:38→23:04)
[2020-03-11] MEDS: FENTANYL 2000MCG/NS 250 250 ML IV PRN ×2 (01:57→12:18)
[2020-03-11 05:44] LABS: BASOPHILS # (AUTO) 0.1 (0.0-0.1); BASOPHILS % 0.5 % (0.0-1.0); HEMATOCRIT 34.1 % (34.2-44.1); HEMOGLOBIN 10.8 g/dL (12.0-16.0); LYMPHOCYTES % 10.6 % (18.0-39.1); MEAN CORPUSCULAR HGB CONC 31.7 g/dL (31-35); MEAN CORPUSCULAR VOLUME 91.7 fL (81-99); MONOCYTES # (AUTO) 0.6 (0.2-0.8); MONOCYTES % 6.4 % (4.4-11.3); NEUTROPHILS # (AUTO) 6.8 (2.1-6.9); NEUTROPHILS % 72.6 % (38.7-80.0); PLATELET COUNT 342 x10e3/uL (140-360); RED BLOOD COUNT 3.72 x10e6/uL (3.6-5.1); RED CELL DISTRIBUTION WIDTH 13.2 % (11.7-14.4)
[2020-03-11] MEDS: MIDAZOLAM HCL 5MG/ML 10ML VIAL 100 ML IV PRN ×2 (05:44→12:10)
--- NOTE | 2020-03-11 06:14 | Diagnostic Imaging Report ---
EXAMINATION: CHEST SINGLE (PORTABLE) INDICATION: Respiratory failure COMPARISON: Chest x-ray 03/10/2020 FINDINGS: TUBES and LINES: Right upper extremity PICC tip terminates in the superior cavoatrial junction. ET tube tip terminates in the mid intrathoracic trachea. Enteric tube courses into the abdomen and courses along the expected gastric lumen. LUNGS/PLEURA: Low lung volumes. Extensive airspace disease. Obscured hemidiaphragms. No pneumothorax. HEART AND MEDIASTINUM: The cardiomediastinal silhouette is unremarkable. BONES AND SOFT TISSUES: No acute osseous lesion. Soft tissues are unremarkable. UPPER ABDOMEN: No free air under the diaphragm. IMPRESSION: Stable support apparatus. Extensive pneumonia. Low lung volumes. Possible small pleural effusions versus atelectasis. Signed by: Colton Vera DO on 03/11/2020 6:11 AM
[2020-03-11 06:33] LABS: ALANINE AMINOTRANSFERASE 321 IU/L (0-55); ALBUMIN 2.5 g/dL (3.5-5.0); ALBUMIN/GLOBULIN RATIO 0.7 (0.8-2.0); ALKALINE PHOSPHATASE 190 IU/L (40-150); ANION GAP 10.7 mmol/L (8-16); BLOOD UREA NITROGEN 29 mg/dL (7-26); BUN/CREATININE RATIO 41 (6-25); CALCIUM 8.4 mg/dL (8.4-10.2); CARBON DIOXIDE 24 mmol/L (22-29); CHLORIDE 114 mmol/L (98-107); CREATININE, SERUM 0.71 mg/dL (0.57-1.11); EST GLOMERULAR FILTRATION RATE > 60 ML/MIN (60-); GLUCOSE 163 mg/dL (74-118); POTASSIUM 4.7 mmol/L (3.5-5.1); SODIUM 144 mmol/L (136-145)
[2020-03-11 06:58] LABS: MAGNESIUM 2.6 MG/DL (1.3-2.1); PHOSPHORUS 3.1 MG/DL (2.3-4.7)
[2020-03-11 08:58] LABS: ABG HCO3 26 mmol/L (22-26); ABG PCO2 41 mmHg (35-45); ABG PO2 53 mmHg (80-105)
[2020-03-11] MEDS: ZINC SULFATE 220 MG CAP PO SCH (09:00)
[2020-03-11] MEDS: ASCORBIC ACID 500 MG TAB PO SCH ×2 (09:35→17:00)
[2020-03-11] MEDS: FAMOTIDINE 20 MG/2 ML VIAL IV SCH (09:35)
[2020-03-11] MEDS: DEXAMETHASONE PHOS 4MG/ML 6 MG in SODIUM CHLORIDE 0.9% 50ML 50 ML IV SCH (12:09)
[2020-03-11] MEDS ORDERED: SODIUM CHLORIDE 0.9% 250ML 250 ML ONE (12:14)
--- NOTE | 2020-03-11 15:25 | Progress Note ---
DATE: Pulmonary Critical Care Progress Note SUBJECTIVE: The patient is still on a mechanical ventilator. She is on a PRVC at a rate of 24 with a tidal volume of 370 and a PEEP of 10 and FiO2 of 50%. She remains on Versed and fentanyl. PHYSICAL EXAMINATION: VITAL SIGNS: The patient is still febrile to 100. The blood pressure is 149/66, saturation is 96%. HEENT: Shows no facial swelling or erythema. CARDIAC: Reveals regular rate and rhythm with normal S1 and S2. LUNGS: Auscultation of lungs reveals rhonchorous breath sounds bilaterally. There is no wheezing. ABDOMEN: Soft and nontender. There is no rebound or guarding. EXTREMITIES: Shows no leg edema or calf tenderness. There is no cyanosis or clubbing. SKIN: Shows no rashes. NEUROLOGICAL: Shows no focal abnormalities. The patient is sedated. LABORATORY DATA: White blood cell count is 9.3 and hemoglobin is 10.9. Platelet count is 342. The BUN to creatinine ratio is 29 to 0.7 and the other electrolytes are within normal limits. The AST is 180 and the ALT is 321. Alkaline phosphatase is 190. The albumin is 2.5. RADIOGRAPHIC DATA: Chest x-ray shows extensive pneumonia. IMPRESSION: 1. Acute respiratory failure. 2. COVID-19 infection and viral pneumonia. 3. Hepatocellular inflammation and hepatitis, probably related to COVID-19 infection. 4. Hypertension. 5. Pericarditis. PLAN: 1. Continue PRVC mode of ventilation. 2. Stop Precedex and fentanyl and begin Precedex along with p.r.n. Ativan. 3. Continue enteral feedings. 4. Continue Lovenox. 5. Continue dexamethasone. 6. Plan for possible spontaneous breathing trial tomorrow. Work towards extubation. 7. Case discussed with nursing staff, Respiratory, and Internal Medicine. Greater than 35 minutes in direct critical care time. Brandon Avitia MD [facility]/MODL /[id number]
[2020-03-11] MEDS ORDERED: DEXMEDETOMIDINE 200MCG/NS 50ML 50 ML IV ONE (15:46)
[2020-03-11] MEDS: VANCOMYCIN 1GM/NS 250 ML 250 ML IV SCH (16:10)
[2020-03-11] MEDS: MEROPENEM 500MG/ NS 50ML 50 ML IV SCH ×2 (16:11→23:04)
[2020-03-11] MEDS ORDERED: PROPOFOL IV EMULSION 10MG/ML 100 ML ONE (18:01)
--- NOTE | 2020-03-11 19:23 | NUR ---
The patient remains vent dependent via ETT, Plan is to extubate in the am if the patient meets criteria. Versed and Fentanyl D/C'd and precedex started, pt became hypertensive, Dr. Avitia notified, propofol added to the regimen. Patient has low grade temperature, Antibiotic changed to meropenem and Vancomycin to cover possible bacterial Infection.
[2020-03-11] MEDS ORDERED: DEXMEDETOMIDINE HCL 200 MCG in SODIUM CHLORIDE 0.9% 50ML 48 ML IV PRN (20:00)
[2020-03-11 20:29] LABS: ABG HCO3 25 mmol/L (22-26); ABG PCO2 39 mmHg (35-45); ABG PH 7.42 (7.35-7.45); ABG PO2 54 mmHg (80-105)
[2020-03-11] MEDS ORDERED: SODIUM CHLORIDE 0.9% 1000ML 1,000 ML ONE (20:32)
[2020-03-11] MEDS: HYDRALAZINE HCL 20 MG/ML VIAL IV PRN (20:58)
[2020-03-11] MEDS: PROPOFOL IV EMULSION 10MG/ML 100 ML IV SCH (23:04)
[2020-03-12] VITALS (28 sets, daily range): BP systolic 122–179; BP diastolic 61–86
--- NOTE | 2020-03-12 00:17 | NUR ---
Pt remains at a RASS of 6, Propofol was decreased to 30mcg from 35mcg and precedex was decreased to 0.3mcg from 0.7. PRN ativan 2 mg was administered for BP and increased RR. Dr. Avitia was called at beginning of shift concerning order for precedex, TO/RB to continue precedex. Order was placed however unable to document due to order dose. This was conveyed to charge nurse. Pt has had 2 bags of precedex since beginning of shift.1st bag on shift hung at 1900, 2nd bag hung at 2330. [facility]
[2020-03-12] MEDS: VANCOMYCIN 1GM/NS 250 ML 250 ML IV SCH ×2 (00:50→13:02)
[2020-03-12] MEDS: ACETAMINOPHEN 325 MG TAB PO PRN (00:51)
[2020-03-12] MEDS: LORAZEPAM INJ 2 MG/ML VIAL IV PRN ×2 (00:51→21:49)
[2020-03-12 03:11] LABS: BASOPHILS # (AUTO) 0.1 (0.0-0.1); BASOPHILS % 0.5 % (0.0-1.0); EOSINOPHILS % 0.1 % (0.0-6.0); HEMATOCRIT 35.9 % (34.2-44.1); HEMOGLOBIN 11.8 g/dL (12.0-16.0); LYMPHOCYTES # (AUTO) 1.2 (1.0-3.2); LYMPHOCYTES % 7.8 % (18.0-39.1); MEAN CORPUSCULAR HEMOGLOBIN 29.6 pg (28-32); MEAN CORPUSCULAR HGB CONC 32.9 g/dL (31-35); MONOCYTES # (AUTO) 0.9 (0.2-0.8); MONOCYTES % 5.8 % (4.4-11.3); NEUTROPHILS # (AUTO) 11.7 (2.1-6.9); NEUTROPHILS % 75.7 % (38.7-80.0); PLATELET COUNT 385 x10e3/uL (140-360); RED BLOOD COUNT 3.99 x10e6/uL (3.6-5.1); RED CELL DISTRIBUTION WIDTH 12.7 % (11.7-14.4)
[2020-03-12 03:24] LABS: ALANINE AMINOTRANSFERASE 297 IU/L (0-55); ALBUMIN 2.5 g/dL (3.5-5.0); ALBUMIN/GLOBULIN RATIO 0.7 (0.8-2.0); ALKALINE PHOSPHATASE 175 IU/L (40-150); ANION GAP 10.6 mmol/L (8-16); BLOOD UREA NITROGEN 24 mg/dL (7-26); BUN/CREATININE RATIO 41 (6-25); CALCIUM 8.5 mg/dL (8.4-10.2); CARBON DIOXIDE 27 mmol/L (22-29); CHLORIDE 109 mmol/L (98-107); CREATININE, SERUM 0.59 mg/dL (0.57-1.11); EST GLOMERULAR FILTRATION RATE > 60 ML/MIN (60-); GLUCOSE 149 mg/dL (74-118); MAGNESIUM 2.3 MG/DL (1.3-2.1); POTASSIUM 4.6 mmol/L (3.5-5.1); SODIUM 142 mmol/L (136-145)
--- NOTE | 2020-03-12 04:12 | NUR ---
Pt's labs were drawn early due to frequent multifocal PVCs as well as "R-on-T PVCs", pt remains in SB. Electrolytes are within normal limits. Pt is at a RASS of 5 now. Bath was given and sheets changed. Precedex remains at 0.03mcg and Propofol remains at 30mcgs. Pt saturating now inbetween 94-100%. Will report to dayshift.
[2020-03-12] MEDS: PROPOFOL IV EMULSION 10MG/ML 100 ML IV SCH ×4 (05:28→23:06)
[2020-03-12] MEDS: MEROPENEM 500MG/ NS 50ML 50 ML IV SCH ×3 (05:28→21:49)
[2020-03-12] MEDS: HYDRALAZINE HCL 20 MG/ML VIAL IV PRN (05:29)
--- NOTE | 2020-03-12 06:00 | NUR ---
Sedation Titrated down: Propofol at 25mcg, Precedex at 0.02mcg
--- NOTE | 2020-03-12 08:39 | Diagnostic Imaging Report ---
EXAMINATION: CHEST SINGLE (PORTABLE) INDICATION: Hypoxia, pneumonia COMPARISON: Chest radiograph of 03/11/2020 FINDINGS: LINES/TUBES:Support lines and tubes unchanged. LUNGS:The lung volumes are very low. Persistent bibasilar airspace opacities. PLEURA:Possible small bilateral pleural effusions. No pneumothorax. MEDIASTINUM:The cardiomediastinal silhouette appears unchanged in size and shape. BONES/SOFT TISSUES:No acute osseous injury. ABDOMEN:No free air under the diaphragm. IMPRESSION: Low lung volumes and persistent bibasilar airspace opacities. Signed by: Alejandro Dwyer MD on 03/12/2020 8:36 AM
[2020-03-12] MEDS: ZINC SULFATE 220 MG CAP PO SCH ×3 (08:57→16:15)
[2020-03-12] MEDS: FAMOTIDINE 20 MG/2 ML VIAL IV SCH ×3 (09:01→16:15)
[2020-03-12 09:09] LABS: ABG HCO3 27 mmol/L (22-26); ABG PCO2 40 mmHg (35-45); ABG PH 7.44 (7.35-7.45); ABG PO2 59 mmHg (80-105)
--- NOTE | 2020-03-12 09:37 | Progress Note ---
DATE: Pulmonary Critical Care Progress Note SUBJECTIVE: The patient is sedated with propofol and Precedex overnight. The sedation was held early this morning and she was placed on a spontaneous breathing trial. She is on CPAP of 5 with pressure support of 10. She is breathing 25 to 27 times a minute with tidal volumes of 300 to 350 mL. She was receiving enteral feedings with these are now on hold. PHYSICAL EXAMINATION: VITAL SIGNS: The blood pressure is 151/70, pulse is 72, and saturation is 96%. HEENT: Shows no facial swelling or erythema. CARDIAC: Reveals regular rate and rhythm with normal S1, S2. LUNGS: Auscultation of lungs reveals rhonchorous breath sounds bilaterally. There is no wheezing. ABDOMEN: Soft, nontender. There is no rebound or guarding. EXTREMITIES: Shows no leg edema or calf tenderness. There is no cyanosis or clubbing. SKIN: Shows no rashes. NEUROLOGICAL: Shows no focal abnormalities. The patient is awake. RADIOGRAPHIC DATA: Chest x-ray shows persistent bilateral infiltrates. LABORATORY DATA: BUN to creatinine ratio is 24 to 0.59. The other electrolytes are within normal limits. The ALT is 297 and the AST is 108. The albumin is 2.5. IMPRESSION: 1. Acute respiratory failure. 2. Viral pneumonia and COVID-19 infection. 3. Viral hepatitis, secondary to COVID. 4. Viral pericarditis, secondary to COVID. 5. Hypertension. PLAN: 1. Continue spontaneous breathing trial and repeat ABG. Work towards extubation. 2. Enteral feedings are on hold for now. 3. Continue Lovenox. 4. Complete dexamethasone. 5. Case was discussed with nursing staff, Respiratory, Internal Medicine, and administration. Greater than 35 minutes in direct critical care time. Brandon Avitia MD [facility]/MODL /[id number]
[2020-03-12 10:01] LABS: ABG HCO3 28 mmol/L (22-26); ABG PCO2 37 mmHg (35-45); ABG PH 7.48 (7.35-7.45); ABG PO2 52 mmHg (80-105)
[2020-03-12] MEDS: DEXAMETHASONE PHOS 4MG/ML 6 MG in SODIUM CHLORIDE 0.9% 50ML 50 ML IV SCH (11:59)
[2020-03-12] MEDS: ENOXAPARIN SOD INJ 40 MG/0.4 ML SYR SC SCH ×2 (11:59→21:49)
[2020-03-12] MEDS: ASCORBIC ACID 500 MG TAB PO SCH ×2 (12:00→16:15)
--- NOTE | 2020-03-12 16:39 | Progress Note ---
DATE: SUBJECTIVE: Ms. Gooden remains in intensive care unit. The patient, who is intubated. Sedated on propofol and Precedex. OBJECTIVE: HEENT: She is not icteric. She is intubated and sedated. VITAL SIGNS: Stable. NECK: Supple. CHEST: Crackles bilateral. HEART: S1 and S2. No murmur. ABDOMEN: Soft. Bowel sounds present. EXTREMITIES: No edema. SKIN: No rash. The patient, who is on CPAP of 5, pressure support of 10, breathing 25 to 27 a minute with tidal volume 350, on enteral feeding, but it is on hold. LABORATORY DATA: Reviewed. Her cultures remain negative. Her white count is 15.4 today and hemoglobin 11.8. MEDICATION LIST: She is on vancomycin, which was started yesterday since I was concerned about aspiration pneumonia. She will continue with dexamethasone and Lovenox. She is also on meropenem which was started yesterday. IMPRESSION: Sepsis, aspiration pneumonia, on vancomycin and meropenem. We will treat her for 7 to 8 days. Continue supportive care. Recheck CBC. Recheck chem panel. We will follow. MD MARJAN Rapp/SHELLIE /[id number]
--- NOTE | 2020-03-12 18:12 | NUR ---
Ms Gooden, remains vent dependent via ETT, she was given a sedation vacation and weaning trials were performed, pt was not able to tolerate and after approx. two hours she was placed back on full vent support. Sedation was restarted and the patient made comdortable, RASS -2 to -3. Tube feeds were restarted. Oral care was performed. Afebrile and she remains hemodynamically stable. Continuous cardiac and respiratory monitoring in progress.
--- NOTE | 2020-03-12 19:28 | NUR ---
Received report from dayshift nurse. Pt remains on vent at PRVC: 60%, Peep 10, TV 360, RR 24. RASS 5, GCS 6. Vitals charted in spreadsheet. Prop at 40mcgs, Dex at 0.9mcgs.
[2020-03-12] MEDS: DEXMEDETOMIDINE 200MCG/NS 50ML 50 ML IV PRN ×2 (20:13→23:07)
[2020-03-12 20:55] LABS: ABG HCO3 26 mmol/L (22-26); ABG PCO2 32 mmHg (35-45); ABG PH 7.51 (7.35-7.45); ABG PO2 51 mmHg (80-105)
--- NOTE | 2020-03-12 21:43 | NUR ---
Pt's propofol was increased from 28-13-39tdjn due to increased RR and peak pressures in the 30s while saturating only at 90-92%. Pt was also given PRN ativan. Will reassess. See vitals in spreadsheet. RASS of 5, GCS 7.
[2020-03-12] MEDS ORDERED: SODIUM CHLORIDE 0.9% 250ML 250 ML ONE (22:58)
[2020-03-13] VITALS (25 sets, daily range): BP systolic 107–176; BP diastolic 50–88
[2020-03-13] MEDS: HYDRALAZINE HCL 20 MG/ML VIAL IV PRN (01:24)
[2020-03-13] MEDS: VANCOMYCIN 1GM/NS 250 ML 250 ML IV SCH ×3 (01:24→13:22)
[2020-03-13] MEDS: DEXMEDETOMIDINE 200MCG/NS 50ML 50 ML IV PRN ×3 (02:42→09:24)
[2020-03-13] MEDS: PROPOFOL IV EMULSION 10MG/ML 100 ML IV SCH ×3 (02:43→09:24)
[2020-03-13] MEDS: LORAZEPAM INJ 2 MG/ML VIAL IV PRN (02:57)
[2020-03-13 05:38] LABS: BASOPHILS # (AUTO) 0.1 (0.0-0.1); BASOPHILS % 0.4 % (0.0-1.0); HEMATOCRIT 34.2 % (34.2-44.1); HEMOGLOBIN 11.6 g/dL (12.0-16.0); LYMPHOCYTES # (AUTO) 1.2 (1.0-3.2); LYMPHOCYTES % 6.3 % (18.0-39.1); MEAN CORPUSCULAR HEMOGLOBIN 30.7 pg (28-32); MEAN CORPUSCULAR HGB CONC 33.9 g/dL (31-35); MEAN CORPUSCULAR VOLUME 90.5 fL (81-99); MONOCYTES # (AUTO) 0.8 (0.2-0.8); MONOCYTES % 4.4 % (4.4-11.3); NEUTROPHILS % 82.1 % (38.7-80.0); PLATELET COUNT 362 x10e3/uL (140-360); RED BLOOD COUNT 3.78 x10e6/uL (3.6-5.1); RED CELL DISTRIBUTION WIDTH 12.6 % (11.7-14.4)
[2020-03-13] MEDS: MEROPENEM 500MG/ NS 50ML 50 ML IV SCH ×3 (05:59→21:40)
[2020-03-13 06:12] LABS: ALANINE AMINOTRANSFERASE 288 IU/L (0-55); ALBUMIN 2.4 g/dL (3.5-5.0); ALBUMIN/GLOBULIN RATIO 0.6 (0.8-2.0); ALKALINE PHOSPHATASE 155 IU/L (40-150); ANION GAP 14.9 mmol/L (8-16); BLOOD UREA NITROGEN 20 mg/dL (7-26); BUN/CREATININE RATIO 37 (6-25); CALCIUM 8.3 mg/dL (8.4-10.2); CARBON DIOXIDE 23 mmol/L (22-29); CHLORIDE 106 mmol/L (98-107); CREATININE, SERUM 0.54 mg/dL (0.57-1.11); EST GLOMERULAR FILTRATION RATE > 60 ML/MIN (60-); GLUCOSE 135 mg/dL (74-118); POTASSIUM 3.9 mmol/L (3.5-5.1); SODIUM 140 mmol/L (136-145)
--- NOTE | 2020-03-13 07:39 | Diagnostic Imaging Report ---
Examination: Single AP view of the chest. COMPARISON: Portable chest 03/12/2020 INDICATION: Respiratory failure IMPRESSION: 1. Lines and Tubes: Supporting lines and tubes are unchanged. 2. Slight improvement in aeration of the left upper lobe. Otherwise no significant interval change in bilateral interstitial and alveolar opacities, worse in the lower lobes. 3. Stable cardiac silhouette. Central venous congestion. Signed by: Dr. Kevan Lira M.D. on 03/13/2020 7:35 AM
[2020-03-13 07:44] LABS: BAND NEUTROPHILS % (MANUAL) 2 %; LYMPHOCYTES % (MANUAL) 5 % (19-48); MONOCYTES % (MANUAL) 3 % (3.4-9.0); MYELOCYTES % (MANUAL) 4 % (0-0); NEUTROPHILS % (MANUAL) 86 % (40-74); PLATELET ESTIMATE SLIGHTLY INCREASED; PLATELET MORPHOLOGY COMMENT NORMAL; RBC MORPHOLOGY COMMENT NORMAL
[2020-03-13 08:29] LABS: ABG PCO2 32 mmHg (35-45); ABG PH 7.48 (7.35-7.45); ABG PO2 51 mmHg (80-105)
[2020-03-13 08:30] LABS: ABG HCO3 25 mmol/L (22-26)
[2020-03-13] MEDS: ASCORBIC ACID 500 MG TAB PO SCH ×2 (09:00→17:34)
[2020-03-13] MEDS: ZINC SULFATE 220 MG CAP PO SCH ×2 (09:23→17:34)
[2020-03-13] MEDS: FAMOTIDINE 20 MG/2 ML VIAL IV SCH ×2 (09:23→17:33)
[2020-03-13] MEDS: ENOXAPARIN SOD INJ 40 MG/0.4 ML SYR SC SCH ×2 (09:23→20:14)
[2020-03-13] MEDS: DEXAMETHASONE SOD PHOS INJ 4 MG/ML VIAL IV SCH (11:10)
[2020-03-13] MEDS ORDERED: FENTANYL CITRATE INJ 2,000 MCG in SODIUM CHLORIDE 0.9% 250ML 210 ML IV PRN (11:45)
--- NOTE | 2020-03-13 13:34 | Progress Note ---
DATE: SUBJECTIVE: The patient is requiring more oxygen this morning. She also has some increased tachypnea. There are no fevers. PHYSICAL EXAMINATION: VITAL SIGNS: The patient is afebrile. The blood pressure is 137/64, saturation is 93%, pulse is 70. She is on a PRVC at a rate of 26 with a tidal volume of 360 and a PEEP of 15. Her FiO2 is set at 75%. HEENT: She has no facial swelling. She has an oral endotracheal tube in place. She has a PICC line. She has a radial arterial line. CARDIAC: Reveals regular rate and rhythm with normal S1, S2. LUNGS: Auscultation of lungs reveals rhonchorous breath sounds bilaterally. There is no wheezing. ABDOMEN: Soft, nontender. There is no rebound or guarding. EXTREMITIES: Shows no leg edema or calf tenderness. There is no cyanosis or clubbing. SKIN: Shows no rashes. NEUROLOGICAL: Shows no focal abnormalities. LABORATORY DATA: White blood cell count is 18.3 and hemoglobin is 11.6. The platelet count is 362. BUN to creatinine ratio is normal. Other electrolytes are within normal limits. AST is 88 and the ALT is 288. Albumin is 2.4. RADIOGRAPHIC DATA: Shows bilateral interstitial alveolar infiltrates. IMPRESSION: 1. Acute respiratory failure. 2. Viral pneumonia and COVID-19 infection. 3. Bacterial pneumonia, superimposed on viral pneumonia. 4. Viral hepatitis, secondary to COVID. 5. Viral pericarditis. 6. Hypertension. PLAN: 1. Continue current ventilator settings and repeat ABG. 2. Switch sedatives to Versed and fentanyl. 3. Continue current antibiotics to cover for superimposed bacterial infection. 4. Complete dexamethasone. 5. Continue Lovenox. 6. CT scan of the chest to evaluate for any small pneumothoraces. 7. Repeat EKG and troponin I. 8. Case was discussed with the shift foreman nursing, dayshift nursing, Respiratory, Infectious Disease, and administration. Greater than 35 minutes in direct critical care time. MD CRYSTAL Carpenter/SHELLIE /[id number]
--- NOTE | 2020-03-13 15:20 | Diagnostic Imaging Report ---
EXAM: CT Chest WITHOUT intravenous contrast 03/13/2020 1:30 PM INDICATION: Pneumothorax COMPARISON: Chest radiograph of 03/12/2020 TECHNIQUE: Chest was scanned utilizing a multidetector helical scanner from the lung apex through the level of the adrenal glands without administration of IV contrast. Coronal and sagittal reformations were obtained. Routine protocol was performed. IV CONTRAST: None RADIATION DOSE: Total DLP: 403 mGy*cm. Dose modulation, iterative reconstruction, and/or weight based adjustment of the mA/kV was utilized to reduce the radiation dose to as low as reasonably achievable. COMPLICATIONS: None FINDINGS: LINES/ TUBES: Endotracheal tube terminates in the midthoracic trachea. Enteric tube terminates in the stomach. Right PICC line terminates at the superior cavoatrial junction. LUNGS AND AIRWAYS: The central airways are patent. Multifocal groundglass and consolidative opacities throughout the lungs. PLEURA: No pleural effusion. No pneumothorax. HEART AND MEDIASTINUM: The thyroid gland is normal. No mediastinal, hilar or axillary lymphadenopathy. Multichamber cardiomegaly.. No pericardial effusion. UPPER ABDOMEN: No acute findings in the upper abdomen. BONES: No acute osseous injury. SOFT TISSUES: Unremarkable. IMPRESSION: No pneumothorax or pneumomediastinum. Multifocal pneumonia. Signed by: Alejandro Dwyer MD on 03/13/2020 3:17 PM
--- NOTE | 2020-03-13 15:35 | NUR ---
Nutrition Intervention Note RD Recommendation(s) for Physician: -Recommend modifying formula to Vital High Protein @ goal rate of 50 mL/hr to better meet nutritional needs (provides 1200 kcal, 105 g protein). Remaining kcal to come from Propofol -Fluid management per MD -Propofol providing 475 lipid kcal/day -If able to extubate and safe for po, recommend 1800 ADA, 2 gm Na diet with texture per JOGGER OPERATOR Plan of Care: RD following, monitoring for tolerance and adequacy, tube feed and diet recommendations Nutrition reason for involvement: follow up RD Assessment 03/13: Follow up. Pt remains intubated, TF held for SBT- noted total of 160 ml TF given yesterday. Pt remains sedated on Propofol. TF and diet rec's provided pending outcome of SBT. Chart reviewed. Will continue to monitor. (03/09/20) Pt is a 59 year old female admitted with hypoxia and pneumonia due to COVID-19. Pt is currently intubated and sedated. Tube feedings were ordered yesterday. There are no previous weights in chart. Recommendations provided. Will continue to monitor. Principal Problems/Diagnoses: hypoxia, pneumonia due to COVID-19. PMH: Hypertension GI: soft, non-tender abdomen; no BM documented Skin: intact Labs: 03/13: Na 140, K 3.9, BUN 20, Cr 0.84, Gluc 185, Mg 2.3 (03/09/20) Na 145, BUN 27, Glu 165, Ca 8.0, AST 50 Meds: abx, decadron, zinc sulfate, colace, zofran IVF/Drips: Propofol at 18 ml/hr (475 lipid kcal/day) Ht: 63 inches Wt: 169 lb (03/13), 161 lbs (03/07) BMI: 28.5 kg/m2 IBW: 115 lbs Malnutrition Evaluation (03/09/20) Unable to assess. Will re-evaluate at follow-up as appropriate. Nutrition Prescription (Diet Order): Vital AF @ 20 mL/hr (576 kcal and 36 gm protein) Estimated Nutritional Needs: 6083-8940 calories/day (18-20 kcal/kg CBW) Weight used 161 lbs 95-145 g protein/day (1.3-2 g pro/kg CBW) Weight used: 161 lbs Diet Adequacy: Not meeting calorie needs, Not meeting protein needs Tolerance: Tolerating trickle feeds Diet Education Needs Assessment: Diet education not indicated, patient on temporary/transition diet. Nutrition Care Level: moderate Nutrition Diagnosis: Inadequate oral intake related to acute respiratory failure/mechanical ventilation as evidenced by pt requiring enteral nutrition. Goal: Patient will meet 75-100% of estimated needs by follow up Progress: Not progressing Interventions: - Composition, Rate, Route, Recommended Modifications Monitoring/Evaluation: -Total energy intake, Total protein intake, Formula/Solution, Weight change Signed: Mikayla Cruz RD, LD, [facility]
[2020-03-13] MEDS: ARTIFICIAL TEARS (OPTH) 15 ML BTL OU SCH (17:33)
[2020-03-13] MEDS: DOCUSATE SODIUM LIQD 100 MG/10 ML UDC NG SCH (17:33)
--- NOTE | 2020-03-13 18:35 | Progress Note ---
DATE: SUBJECTIVE: Ms. Gooden remains in intensive care unit, on oxygen, tachypneic, a little bit worse. OBJECTIVE: VITAL SIGNS: Stable, afebrile. Blood pressure 137/76. Saturation 93. She is on PRVC at a rate of 26, tidal volume 360, PEEP of 15, FiO2 75%. HEENT: She is not icteric. NECK: Supple. CHEST: Few crackles. COR: S1 and S2. No S3, S4, or murmur. ABDOMEN: Soft. LABORATORY DATA: White count is 18.3 and hemoglobin 11.6. IMPRESSION: Respiratory failure, COVID-19, bacterial pneumonia, aspiration, superimposed viral pneumonia, and elevated liver enzyme. Currently vancomycin and meropenem to finish 7 days. To finish 10 days of dexamethasone. Ms. Gooden' day #7. We will follow. MD MARJAN Rapp/MODL /[id number]
--- NOTE | 2020-03-13 19:00 | NUR ---
Patient remains vent dependent via ETT, required additional oxygen support, Fio2 increased to 80%. Sedation changed to fentanyl and versed. Unable to be weaned today, no sedation vacation. Tube feeds restarted. CT of the chest performed this shift. Awaiting results. Dr. Farheen Avitia is aware. Remains hemodynamically stable. Continuous cardiac and respiratory support.
--- NOTE | 2020-03-13 20:00 | NUR ---
Received report from the [facility] nurse. Pt is resting, on vent at PRVC: 75%/PEEP15/24RR/360TV. Pt is synchronized with the vent. Sedation: Versed 7mg/hr, Fentanyl 225mcg/hr. RASS 4, GCS 7. When suctioning pt becomes alert and able to move bilateral extremities. Soft wrist restraints remain in place. See continued documentation in spreadsheet.
[2020-03-13] MEDS: MIDAZOLAM HCL 5MG/ML 10ML VIAL 100 ML IV PRN (20:06)
[2020-03-13] MEDS: FENTANYL 2000MCG/NS 250 250 ML IV PRN (21:41)
[2020-03-14] VITALS (28 sets, daily range): BP systolic 84–160; BP diastolic 49–67
[2020-03-14] MEDS: MIDAZOLAM HCL 5MG/ML 10ML VIAL 100 ML IV PRN ×4 (02:45→22:29)
[2020-03-14] MEDS ORDERED: SODIUM CHLORIDE 0.9% 250ML 250 ML ONE (05:40)
[2020-03-14 05:44] LABS: BASOPHILS % 0.3 % (0.0-1.0); EOSINOPHILS % 0.2 % (0.0-6.0); HEMATOCRIT 30.2 % (34.2-44.1); HEMOGLOBIN 9.8 g/dL (12.0-16.0); LYMPHOCYTES # (AUTO) 0.7 (1.0-3.2); MEAN CORPUSCULAR HEMOGLOBIN 29.3 pg (28-32); MEAN CORPUSCULAR HGB CONC 32.5 g/dL (31-35); MEAN CORPUSCULAR VOLUME 90.1 fL (81-99); MONOCYTES # (AUTO) 0.4 (0.2-0.8); MONOCYTES % 3.6 % (4.4-11.3); NEUTROPHILS # (AUTO) 9.3 (2.1-6.9); NEUTROPHILS % 85.3 % (38.7-80.0); PLATELET COUNT 326 x10e3/uL (140-360); RED BLOOD COUNT 3.35 x10e6/uL (3.6-5.1); RED CELL DISTRIBUTION WIDTH 12.9 % (11.7-14.4)
[2020-03-14] MEDS: MEROPENEM 500MG/ NS 50ML 50 ML IV SCH ×3 (05:47→21:19)
[2020-03-14 06:10] LABS: ALANINE AMINOTRANSFERASE 215 IU/L (0-55); ALBUMIN/GLOBULIN RATIO 0.6 (0.8-2.0); ALKALINE PHOSPHATASE 116 IU/L (40-150); ANION GAP 10.2 mmol/L (8-16); BLOOD UREA NITROGEN 21 mg/dL (7-26); BUN/CREATININE RATIO 43 (6-25); CARBON DIOXIDE 26 mmol/L (22-29); CHLORIDE 107 mmol/L (98-107); CREATININE, SERUM 0.49 mg/dL (0.57-1.11); EST GLOMERULAR FILTRATION RATE > 60 ML/MIN (60-); GLUCOSE 149 mg/dL (74-118); POTASSIUM 4.2 mmol/L (3.5-5.1); SODIUM 139 mmol/L (136-145)
[2020-03-14] MEDS: FENTANYL 2000MCG/NS 250 250 ML IV PRN ×3 (06:16→22:59)
--- NOTE | 2020-03-14 07:48 | Diagnostic Imaging Report ---
Examination: Single AP view of the chest. COMPARISON: CT chest 03/13/2020 INDICATION: Pneumonia, respiratory failure IMPRESSION: 1. Lines and Tubes: Right-sided PICC line has its distal tip projecting at the cavoatrial junction. Endotracheal tube has distal tip projecting approximately 3.3 cm above the indio. Enteric tube is noted below the left hemidiaphragm, however, the tip is not visualized. 2. Double change in bilateral patchy persistent opacities consistent with multifocal pneumonia. No effusion. 3. Cardiomediastinal silhouette is normal. Pulmonary vasculature is normal. 4. No acute bony abnormalities. Signed by: Dr. Kevan Lira M.D. on 03/14/2020 7:44 AM
[2020-03-14] MEDS: DOCUSATE SODIUM LIQD 100 MG/10 ML UDC NG SCH ×2 (09:27→16:58)
[2020-03-14] MEDS: FAMOTIDINE 20 MG/2 ML VIAL IV SCH ×2 (09:27→16:58)
[2020-03-14] MEDS: ARTIFICIAL TEARS (OPTH) 15 ML BTL OU SCH ×2 (09:27→16:58)
[2020-03-14] MEDS: ASCORBIC ACID 500 MG TAB PO SCH ×2 (09:27→16:58)
[2020-03-14] MEDS: ZINC SULFATE 220 MG CAP PO SCH ×2 (09:27→16:59)
[2020-03-14 11:19] LABS: ABG HCO3 27 mmol/L (22-26); ABG PCO2 45 mmHg (35-45); ABG PH 7.39 (7.35-7.45); ABG PO2 191 mmHg (80-105)
--- NOTE | 2020-03-14 11:54 | Progress Note ---
DATE: SUBJECTIVE: The patient remains on mechanical ventilation. Her FiO2 is decreased to 70%, but her PEEP remains at 14. Her tidal volume is 316. Respiratory rate is 24. She is saturating 100%. She is continuing to receive enteral feedings. PHYSICAL EXAMINATION: VITAL SIGNS: The patient is afebrile. The T-max is 99.4. Blood pressure is 117/60. HEENT: Shows no facial swelling or erythema. LYMPHATIC: Shows no submandibular, cervical, or supraclavicular adenopathy. CARDIAC: Reveals regular rate and rhythm with normal S1 and S2. LUNGS: Auscultation of lungs reveals rhonchorous breath sounds bilaterally. There is no wheezing. ABDOMEN: Soft and nontender. There is no rebound or guarding. EXTREMITIES: Shows no leg edema or calf tenderness. There is no cyanosis or clubbing. SKIN: Shows no rashes. NEUROLOGICAL: Shows no focal abnormalities. LABORATORY DATA: White blood cell count is 10.9 and hemoglobin is 9.8. The platelet count is 326. BUN to creatinine ratio is normal. Other electrolytes are within normal limits. ALT is 215 and the albumin is 2. RADIOGRAPHIC DATA: Chest x-ray shows bilateral infiltrates. IMPRESSION: 1. Acute respiratory failure. 2. Viral pneumonia and COVID-19 infection. 3. Bacterial pneumonia, superimposed on viral pneumonia. 4. Viral hepatitis secondary to COVID. 5. Viral pericarditis. 6. Hypertension. PLAN: 1. Continue to wean oxygen and monitor ABG. 2. Continue Versed and fentanyl. 3. Continue current antibiotics. 4. Complete dexamethasone. 5. Lovenox. 6. Case discussed with lieutenant shift supervisor nursing, day shift nursing, Respiratory, Internal Medicine, and administration. Greater than 35 minutes in direct critical care time apart from any procedures performed. Brandon Avitia MD [facility]/MODL /[id number]
[2020-03-14] MEDS: DEXAMETHASONE SOD PHOS INJ 4 MG/ML VIAL IV SCH (12:08)
[2020-03-14] MEDS: VANCOMYCIN 1GM/NS 250 ML 250 ML IV SCH (14:19)
--- NOTE | 2020-03-14 17:34 | Progress Note ---
DATE: SUBJECTIVE: The patient remains in the intensive care unit. The patient is on a ventilator. FiO2 decreased to 70. Her PEEP at 14 still. PHYSICAL EXAMINATION: GENERAL: Intubated and sedated. VITAL SIGNS: Stable, afebrile. HEENT: She is not icteric. NECK: Supple. CHEST: Crackles bilateral. HEART: S1 and S2. No S3, S4, or murmur. ABDOMEN: Soft. Bowel sounds present. No tenderness. EXTREMITIES: No edema. SKIN: No rash. IMPRESSION: COVID-19 pneumonia, superimposed, seems to be better; elevated liver enzyme probably due to sepsis versus other. She is currently on vancomycin and meropenem, started on the , continue to the . Dexamethasone, to finish another 10 days. The patient, who has been here for 8 days. We will follow. MD MARJAN Rapp/MODL /[id number]
--- NOTE | 2020-03-14 19:00 | NUR ---
Report received from Anastacia LUCAS. 9319 ABG needed. Versed and fentanyl infusions. ETT to vent per md orders. Refer to acidity tester for further information.
[2020-03-14 20:52] LABS: ABG PH 7.39 (7.35-7.45)
[2020-03-14 20:53] LABS: ABG HCO3 27 mmol/L (22-26); ABG PCO2 44 mmHg (35-45); ABG PO2 162 mmHg (80-105)
--- NOTE | 2020-03-14 20:55 | NUR ---
Dr. Farheen Avitia present on the unit. Rivka RT gave Dr. Avitia the ABG results. New orders received to decrease FIO2 to 50% and decrease PEEP to 13.
[2020-03-15] VITALS (22 sets, daily range): BP systolic 112–175; BP diastolic 44–81
[2020-03-15] MEDS: VANCOMYCIN 1GM/NS 250 ML 250 ML IV SCH ×2 (02:22→12:56)
[2020-03-15] MEDS: FENTANYL 2000MCG/NS 250 250 ML IV PRN (05:51)
[2020-03-15] MEDS: MIDAZOLAM HCL 5MG/ML 10ML VIAL 100 ML IV PRN (05:51)
[2020-03-15] MEDS: MEROPENEM 500MG/ NS 50ML 50 ML IV SCH ×3 (06:06→21:04)
[2020-03-15 06:25] LABS: BASOPHILS % 0.1 % (0.0-1.0); HEMATOCRIT 29.8 % (34.2-44.1); HEMOGLOBIN 9.5 g/dL (12.0-16.0); LYMPHOCYTES # (AUTO) 0.8 (1.0-3.2); LYMPHOCYTES % 9.8 % (18.0-39.1); MEAN CORPUSCULAR HEMOGLOBIN 29.1 pg (28-32); MEAN CORPUSCULAR HGB CONC 31.9 g/dL (31-35); MEAN CORPUSCULAR VOLUME 91.4 fL (81-99); MONOCYTES # (AUTO) 0.4 (0.2-0.8); MONOCYTES % 4.9 % (4.4-11.3); NEUTROPHILS # (AUTO) 6.3 (2.1-6.9); PLATELET COUNT 283 x10e3/uL (140-360); RED BLOOD COUNT 3.26 x10e6/uL (3.6-5.1)
[2020-03-15 06:58] LABS: ALANINE AMINOTRANSFERASE 147 IU/L (0-55); ALBUMIN/GLOBULIN RATIO 0.6 (0.8-2.0); ALKALINE PHOSPHATASE 96 IU/L (40-150); BLOOD UREA NITROGEN 20 mg/dL (7-26); BUN/CREATININE RATIO 39 (6-25); CALCIUM 8.1 mg/dL (8.4-10.2); CARBON DIOXIDE 27 mmol/L (22-29); CHLORIDE 108 mmol/L (98-107); CREATININE, SERUM 0.51 mg/dL (0.57-1.11); EST GLOMERULAR FILTRATION RATE > 60 ML/MIN (60-); GLUCOSE 149 mg/dL (74-118); SODIUM 141 mmol/L (136-145)
--- NOTE | 2020-03-15 07:52 | Diagnostic Imaging Report ---
Examination: Single AP view of the chest. COMPARISON: Portable chest 03/14/2020 INDICATION: Viral pneumonia IMPRESSION: 1. Lines and Tubes: Supporting lines and tubes are unchanged. 2. Interval worsening of airspace opacity in the right upper lobe. Other bilateral patchy airspace opacities are unchanged. 3. Cardiomediastinal silhouette is normal. Pulmonary vasculature is normal. 4. No acute bony abnormalities. Signed by: Dr. Kevan Lira M.D. on 03/15/2020 7:49 AM
[2020-03-15 08:37] LABS: ABG HCO3 26 mmol/L (22-26); ABG PCO2 38 mmHg (35-45); ABG PH 7.45 (7.35-7.45); ABG PO2 81 mmHg (80-105)
[2020-03-15] MEDS: DOCUSATE SODIUM LIQD 100 MG/10 ML UDC NG SCH ×2 (08:37→16:50)
[2020-03-15] MEDS: FAMOTIDINE 20 MG/2 ML VIAL IV SCH ×2 (08:37→16:50)
[2020-03-15] MEDS: ZINC SULFATE 220 MG CAP PO SCH ×2 (08:37→16:50)
[2020-03-15] MEDS: ASCORBIC ACID 500 MG TAB PO SCH ×2 (08:37→16:50)
[2020-03-15] MEDS: ARTIFICIAL TEARS (OPTH) 15 ML BTL OU SCH ×2 (08:37→16:50)
[2020-03-15] MEDS ORDERED: PROPOFOL IV EMULSION 10MG/ML 100 ML ONE (09:07)
--- NOTE | 2020-03-15 11:08 | Progress Note ---
DATE: SUBJECTIVE: The patient is saturating better and is 99%. Her PEEP was decreased to 12. She is on 50% oxygen. She is on a PRVC mode of ventilation at a rate of 24 with a tidal volume of 370. PHYSICAL EXAMINATION: VITAL SIGNS: The blood pressure is 119/49 and the heart rate is 50. HEENT: No facial swelling or erythema. CARDIAC: Regular rate and rhythm with normal S1, S2. LUNGS: Auscultation of lungs reveals crackles at the bases. There is no wheezing. ABDOMEN: Soft, nontender. There is no rebound or guarding. EXTREMITIES: No leg edema or calf tenderness. There is no cyanosis or clubbing. SKIN: No rashes. NEUROLOGICAL: No focal abnormalities. LABORATORY DATA: White blood cell count is 7.8, hemoglobin is 9.5. The platelet count is 283. The BUN to creatinine ratio is normal. The other electrolytes are within normal limits. Albumin is 2.0. RADIOGRAPHIC DATA: Chest x-ray shows opacities in both lung blackmon. IMPRESSION: 1. Acute respiratory failure. 2. Viral pneumonia and coronavirus disease-19 infection. 3. Viral hepatitis secondary to coronavirus disease-19. 4. Viral pericarditis. 5. Hypertension. PLAN: 1. Continue oxygen. 2. Discontinue Versed and fentanyl and switch to propofol and possibly Precedex. 3. Complete antibiotics. 4. Decrease PEEP. 5. Complete dexamethasone. 6. Complete antibiotics. 7. Lovenox. 8. Probable spontaneous breathing trial tomorrow. Brandon Avitia MD [facility]/MODL /[id number]
[2020-03-15] MEDS: CHOLECALCIFEROL 400 UNIT TAB NG SCH (11:10)
[2020-03-15] MEDS: PROPOFOL IV EMULSION 10MG/ML 100 ML IV SCH (12:11)
[2020-03-15] MEDS: DEXAMETHASONE SOD PHOS INJ 4 MG/ML VIAL IV SCH (12:11)
--- NOTE | 2020-03-15 14:46 | Progress Note ---
DATE: SUBJECTIVE: The patient is seen and evaluated. Discussed with the nurse in the room. The patient remains on vent support with PRVC of 50% with PEEP of 12, respirations of 24 and tidal volume of 370, rate seems improved from yesterday, which was at 78% with a PEEP of 14. The patient is also on feeding tube at 30 mL an hour. She remains on propofol and Precedex. MEDICATIONS: Reviewed. On vancomycin IV, dexamethasone, vitamin D, zinc sulfate, vitamin C, and meropenem. LABORATORY STUDIES: White count of 7.83, improved from 10.91, hemoglobin 9.5, and platelet 283. Sodium 141, potassium 4, and creatinine 0.51. Vancomycin trough 5.4 yesterday. MORPHOLOGY: No new microbiology studies. RADIOLOGY STUDIES: Chest x-ray from today showed interval worsening of airspace opacity in the right upper lobe, otherwise no change. However, the patient's vent setting has improved. PHYSICAL EXAMINATION: VITAL SIGNS: Temperature 98.7, pulse 73, respirations 24, and blood pressure 167/70. GENERAL: Comfortable in bed, vent support, feeding tube. No diarrhea. Remains with Ballesteros cath. On propofol and Precedex. CV: S1-S2. CHEST: Equal expansion. Decreased breath sounds. ABDOMEN: Soft. HEENT: Moist. EXTREMITIES: With edema. ASSESSMENT AND PLAN: 1. Coronavirus disease-19 pneumonia. 2. Superimposed bacterial infection. 3. Elevated liver function tests. The patient has been here for 9 days, continue with dexamethasone for 10 days, total IV antibiotics to stop on the . Re-dose vancomycin IV secondary to low trough. Monitor patient clinically and follow with the labs. Please refer to chart for more information. Dictated by Frankie Carrion PA-C (Al) Chula Schwab MD /MODL /[id number]
[2020-03-16] VITALS (25 sets, daily range): BP systolic 103–192; BP diastolic 48–85
[2020-03-16] MEDS: VANCOMYCIN HCL 1.25 GM in SODIUM CHLORIDE 0.9% 250ML 250 ML IV SCH ×2 (00:17→13:53)
[2020-03-16] MEDS: DEXMEDETOMIDINE 200MCG/NS 50ML 50 ML IV PRN (02:13)
[2020-03-16] MEDS: PROPOFOL IV EMULSION 10MG/ML 100 ML IV SCH (02:13)
[2020-03-16] MEDS: HYDRALAZINE HCL 20 MG/ML VIAL IV PRN ×4 (04:24→21:32)
[2020-03-16 04:53] LABS: BASOPHILS % 0.2 % (0.0-1.0); HEMATOCRIT 32.8 % (34.2-44.1); HEMOGLOBIN 10.8 g/dL (12.0-16.0); LYMPHOCYTES # (AUTO) 1.3 (1.0-3.2); LYMPHOCYTES % 12.1 % (18.0-39.1); MEAN CORPUSCULAR HEMOGLOBIN 30.2 pg (28-32); MEAN CORPUSCULAR HGB CONC 32.9 g/dL (31-35); MEAN CORPUSCULAR VOLUME 91.6 fL (81-99); MONOCYTES # (AUTO) 0.8 (0.2-0.8); MONOCYTES % 7.4 % (4.4-11.3); NEUTROPHILS # (AUTO) 7.9 (2.1-6.9); NEUTROPHILS % 75.6 % (38.7-80.0); PLATELET COUNT 314 x10e3/uL (140-360); RED BLOOD COUNT 3.58 x10e6/uL (3.6-5.1); RED CELL DISTRIBUTION WIDTH 13.1 % (11.7-14.4)
[2020-03-16 05:15] LABS: ALANINE AMINOTRANSFERASE 145 IU/L (0-55); ALBUMIN 2.2 g/dL (3.5-5.0); ALBUMIN/GLOBULIN RATIO 0.5 (0.8-2.0); ALKALINE PHOSPHATASE 93 IU/L (40-150); ANION GAP 9.9 mmol/L (8-16); BLOOD UREA NITROGEN 18 mg/dL (7-26); BUN/CREATININE RATIO 39 (6-25); CALCIUM 8.1 mg/dL (8.4-10.2); CARBON DIOXIDE 26 mmol/L (22-29); CHLORIDE 103 mmol/L (98-107); CREATININE, SERUM 0.46 mg/dL (0.57-1.11); EST GLOMERULAR FILTRATION RATE > 60 ML/MIN (60-); GLUCOSE 116 mg/dL (74-118); POTASSIUM 3.9 mmol/L (3.5-5.1); SODIUM 135 mmol/L (136-145)
[2020-03-16] MEDS: MEROPENEM 500MG/ NS 50ML 50 ML IV SCH ×3 (05:38→21:31)
--- NOTE | 2020-03-16 06:28 | Diagnostic Imaging Report ---
Examination: Single AP view of the chest. COMPARISON: Portable chest 03/15/2020 INDICATION: Intubated, pneumonia IMPRESSION: 1. Lines and Tubes: Supporting lines and tubes are unchanged. 2. Interval improvement of airspace opacity in the right upper lobe, which likely represent atelectasis. Other bilateral patchy airspace opacities are unchanged. 3. Cardiomediastinal silhouette is normal. Pulmonary vasculature is normal. 4. No acute bony abnormalities. Signed by: Dr. Kevan Lira M.D. on 03/16/2020 6:25 AM
[2020-03-16] MEDS: ARTIFICIAL TEARS (OPTH) 15 ML BTL OU SCH ×2 (09:01→18:08)
[2020-03-16] MEDS: CHOLECALCIFEROL 400 UNIT TAB NG SCH (09:07)
[2020-03-16] MEDS: ASCORBIC ACID 500 MG TAB PO SCH ×2 (09:07→17:00)
[2020-03-16] MEDS: DOCUSATE SODIUM LIQD 100 MG/10 ML UDC NG SCH ×2 (09:07→17:00)
[2020-03-16] MEDS: ZINC SULFATE 220 MG CAP PO SCH ×2 (09:07→17:00)
[2020-03-16] MEDS: FAMOTIDINE 20 MG/2 ML VIAL IV SCH ×2 (09:07→18:08)
--- NOTE | 2020-03-16 09:33 | Progress Note ---
DATE: 03/11/2020 SUBJECTIVE: The patient is supine in bed, orally intubated, on mechanical ventilation and sedated. OBJECTIVE: VITAL SIGNS: Temperature 99.4, pulse 52, blood pressure 141/62, respirations 24, and oxygen saturation 95%. GENERAL: Supine. Not prone. LUNGS: Rhonchi bilaterally. Orally intubated, on PRVC rate of 24, FiO2 50%, tidal volume 370, PEEP of 10. HEENT: EOMI. NECK: Supple. No JVD. CARDIOVASCULAR: Regular rate and rhythm. No murmur. She has a right upper extremity PICC line. ABDOMEN: Bowel sounds positive. Soft and nontender. She has an NG tube. EXTREMITIES: Without pitting edema. No clubbing, cyanosis, or marked swelling. NEUROLOGICAL: She is sedated on Versed and fentanyl. No focal abnormalities. LABORATORY DATA: WBC 9.35, hemoglobin 10.8, hematocrit 34.1, platelets 342, neutrophils 72.6%, down from 80.2%. ABG; pH 7.40, pCO2 41, PO2 53, HC03 26, SaO2 87%, base excess of 1, FiO2 of 40%. Sodium 144, potassium 4.7, chloride 114, CO2 24, anion gap 10.7, BUN 29, creatinine 0.71, estimated GFR greater than 60, glucose 163. Fingerstick blood glucose level 155, phosphorus 3.1, magnesium 2.6, calcium 8.4. Total bilirubin 0.4, AST 180, ALT 321, alkaline phosphatase 190. Total protein 6, albumin 2.5, procalcitonin 0.08. IMAGING: Chest x-ray shows extensive pneumonia, low lung volumes, possible small pleural effusions versus atelectasis. ASSESSMENT AND PLAN: 1. Acute respiratory failure. PRVC mode weaning per Pulmonology. 2. Sepsis due to viral pneumonia from COVID-19. Continue Rocephin, azithromycin, Lovenox, dexamethasone, zinc sulfate, vitamin C, vitamin D, Versed, and fentanyl for sedation. 3. Controlled hypertension. Blood pressure 141/62. Cardiology following. Monitor. 4. Pericarditis related to viral infection. Continue antibiotics. 5. Coagulopathy with elevated D-dimer due to #1. Continue Lovenox. 6. Transaminitis. LFTs improving. Monitor. 7. Prophylaxis. Lovenox and Pepcid. 8. Billing code 85953. Time spent 35 minutes. Dictated by Ryan Murillo, AIR LIFT OPERATOR MD [facility]/MODL /[id number]
--- NOTE | 2020-03-16 09:53 | Progress Note ---
DATE: 03/10/2020 CONSULTING PHYSICIANS: 1. Dr. Chula Schwab with Infectious Disease. 2. Dr. Brandon Avitia with Pulmonology. 3. Dr. Iain Avitia with Cardiology. SUBJECTIVE: The patient remains in ICU, bed 190. She is on PRVC mode of ventilation, rate of 24. Sedated with Versed and fentanyl. OBJECTIVE: VITAL SIGNS: Temperature 98.8, heart rate 54, blood pressure 125/56, respirations 24, and oxygen saturation 97%. GENERAL: Supine. Not prone. LUNGS: Bibasilar crackles. No wheezing. PRVC 24, tidal volume 360, FiO2 of 60%, PEEP of 12. HEENT: Sclerae are anicteric. NECK: Supple. CARDIOVASCULAR: Regular rate and rhythm without murmur. ABDOMEN: Bowel sounds positive. Soft, nontender. EXTREMITIES: Without pitting edema. No clubbing, cyanosis, or marked swelling. NEUROLOGICAL: No focal deficits. LABORATORY DATA: WBCs 7.36, hemoglobin 10.7, hematocrit 32.9, platelets 306, and neutrophils 80.2. ABG; pH 7.34, pCO2 of 45, PO2 of 70, HC03 of 24, SaO2 of 92, base excess negative 2, and FiO2 of 60%. Sodium 146, potassium 4.8, chloride 115, CO2 of 23, anion gap 12.8, BUN 27, creatinine 0.7, estimated GFR greater than 60, glucose 171, and calcium 8.5. Fingerstick blood glucose level 175. Total bilirubin 0.8. AST 633, ALT 381, alkaline phosphatase 216, total protein 6, and albumin 2.3. IMAGING DATA: Chest x-ray done today shows increased bilateral hazy interstitial opacities, could be due to pulmonary edema or pneumonia. Increased bibasilar opacities could be due to effusion and atelectasis. ASSESSMENT AND PLAN: 1. Acute respiratory failure. Wean PRVC mode per Pulmonology. Appreciate recommendations. 2. Sepsis due to viral pneumonia from coronavirus disease-19. Remdesivir was discontinued by Infectious Diseases. The patient went into respiratory failure. Continue azithromycin, Rocephin, dexamethasone, vitamin C, vitamin D, zinc sulfate, Lovenox, and Robitussin with codeine. She is on Versed and fentanyl for sedation. 3. Controlled hypertension. Blood pressure 125/56. Cardiology following. Continue p.r.n. hydralazine. 4. Pericarditis related to viral infection. Continue antibiotics. 5. Coagulopathy with elevated D-dimer due to acute respiratory failure. Continue Lovenox. 6. Transaminitis with elevated AST, ALT, and alkaline phosphatase. Monitor LFTs. 7. Prophylaxis. Lovenox and Pepcid. Billing code 34423. Time spent 35 minutes. Dictated by Ryan Murillo, ARETHA MD [facility]/MODL /[id number]
--- NOTE | 2020-03-16 09:53 | Progress Note ---
DATE: 03/12/2020 CONSULTING PHYSICIANS: 1. Dr. Brandon Avitia with Pulmonology Critical Care Medicine. 2. Dr. Chula Schwab with Infectious Disease. 3. Dr. Iain Avitia with Cardiology. SUBJECTIVE: The patient is supine in bed. She is currently undergoing spontaneous breathing trial by Pulmonology. She is tachypneic with PO2 in the 50s per the nurse. No bowel movement since 03/08. OBJECTIVE: VITAL SIGNS: Temperature 97.4, heart rate 72, blood pressure 151/70, respirations 24, oxygen saturation 96%. GENERAL: Supine, not prone. LUNGS: Bibasilar crackles. No wheezing. Currently on CPAP of 5, pressure support 10. Previously on PRVC 24, FIO2 of 70%, tidal volume 360, PEEP of 10. HEENT: EOMI. NECK: Supple. CARDIOVASCULAR: Regular rate and rhythm. No murmur. ABDOMEN: Bowel sounds positive. Soft, nontender. She has an NG tube with Vital AF at 40 mL an hour for nutritional support. She has a Ballesteros catheter with nahum urine. EXTREMITIES: Without pitting edema. No clubbing, cyanosis, or marked swelling. NEUROLOGIC: Nonfocal. Sedated with propofol and Precedex. LABORATORY DATA: WBCs 15.41, hemoglobin 11.8, hematocrit 35.9, platelets 385. ABG; pH 7.44, pCO2 40, PO2 59, HC03 27, oxygen saturation 91%, base excess of 3, FiO2 55%. Subsequent ABG; pH 7.48, pCO2 37, PO2 52, HC03 28, SaO2 89%, base excess of 4, FiO2 of 60%. Sodium 142, potassium 4.6, chloride 109, CO2 of 27, anion gap 10.6, BUN 24, creatinine 0.59, estimated GFR greater than 60, glucose 149, calcium 8.5, magnesium 2.3, total bilirubin 0.5, AST 108, ALT 297, alkaline phosphatase 175, total protein 6.3, albumin 2.5. Chest x-ray today shows low lung volumes and persistent bibasilar airspace opacities. ASSESSMENT AND PLAN: 1. Acute respiratory failure. Wean ventilator as tolerated. 2. Sepsis due to the viral pneumonia from coronavirus disease-19. Remdesivir was discontinued previously by Infectious Disease as the patient went into respiratory failure. She is currently on vancomycin and Merrem. Continue dexamethasone, Lovenox, vitamin C, vitamin D, zinc sulfate, Robitussin and codeine. She is sedated with propofol and Precedex. An effort to decrease her oxygen requirement. 3. Viral hepatitis due to coronavirus disease-19, transaminitis, improving. 4. Pericarditis due to coronavirus disease-19. Continue antibiotics. 5. Controlled hypertension. Blood pressure 151/70. Cardiology following. Monitor. 6. Coagulopathy with elevated D-dimer due to coronavirus disease-19. Continue Lovenox. 7. Prophylaxis. Lovenox and Pepcid. Billing code [id number]. Time spent 35 minutes. Dictated by Ryan Murillo, RESEARCH EDITOR MD [facility]/MODL /[id number]
[2020-03-16] MEDS: DEXAMETHASONE SOD PHOS INJ 4 MG/ML VIAL IV SCH (12:00)
--- NOTE | 2020-03-16 12:36 | Progress Note ---
DATE: SUBJECTIVE: The patient's sedation was stopped. She is awake and following commands. She is placed on a spontaneous breathing trial with a pressure support of 8 and CPAP of 5. She is breathing about 16 times a minute with tidal volumes of 450 to 500 mL. PHYSICAL EXAMINATION: VITAL SIGNS: Blood pressure is 190/80 and the pulse is 100 to 110. HEENT: Shows no facial swelling or erythema. There is an oral endotracheal tube in place. There is a PICC line. There is a radial arterial line. CARDIAC: Reveals regular rate and rhythm with normal S1 and S2. LUNGS: Auscultation of lungs reveals rhonchorous breath sounds bilaterally. There is no wheezing. ABDOMEN: Soft and nontender. There is no rebound or guarding. EXTREMITIES: Shows no leg edema or calf tenderness. There is no cyanosis or clubbing. SKIN: Shows no rashes. NEUROLOGICAL: Shows no focal abnormalities. LABORATORY DATA: BUN to creatinine ratio is normal. Other electrolytes are within normal limits and the albumin is 2.2. RADIOGRAPHIC DATA: Chest x-ray shows bilateral infiltrates. IMPRESSION: 1. Acute respiratory failure. 2. Viral pneumonia and COVID-19 infection. 3. Viral pericarditis. 4. Viral hepatitis secondary to COVID-19. 5. Hypertension. PLAN: 1. Proceed with extubation. 2. Complete antibiotics. 3. Complete dexamethasone. 4. Lovenox. 5. Continue to monitor and control blood pressures. Brandon Avitia MD [facility]/MODL /[id number]
--- NOTE | 2020-03-16 13:37 | NUR ---
ST NOTE: Order acknowledged for BSE on pt, she was extubated approximately 1230 after 10 days of ventilation. A BSE will be completed on 03/19/20 to allow for decreased swelling and allow pt improved performance on swallow evaluation as indicated with research. Handoff to LANCE Dumont
--- NOTE | 2020-03-16 13:56 | NUR ---
The patient was successfully placed on pressure support and eventually weaned from the ventilator at 1205 pm. At present she is placed on oxygen @ 5 LPM via N/C. She is hemodynamically stable, oxygen saturation is 96%, resp rate 16. No S/S of acute respiratory distress noted, patient is following commands. Addendum: 03/16/20 at 1404 by Key Toney RN Patient continues to deny chest pain or shortness of breath, continuous cardiac and respiratory monitoring in progress.
[2020-03-16] MEDS ORDERED: LEVALBUTEROL HCL SOLN NEBU 0.63 MG/3 ML NEB INH SCH (16:15)
--- NOTE | 2020-03-16 16:18 | NUR ---
Nutrition Intervention Note RD Recommendation(s) for Physician: -If pt is safe for po intake , recommend 2 gm Na diet with texture per TOWER CRANE OPERATOR If pt is unsafe for PO intake, recommend enteral nutrition with Vital High Protein @ goal rate of 60 mL/hr (provides 1440 kcal, 126 g protein) Fluid management per MD Plan of Care: RD following, monitoring for tolerance and adequacy Nutrition reason for involvement: follow up RD Assessment 03/16: Follow up. Chart reviewed. RD called pt's nurse over the phone. RN stated pts tube feeding is on hold since pt was just extubated. Will continue to monitor. 03/13: Follow up. Pt remains intubated, TF held for SBT- noted total of 160 ml TF given yesterday. Pt remains sedated on Propofol. TF and diet rec's provided pending outcome of SBT. Chart reviewed. Will continue to monitor. (03/09/20) Pt is a 59 year old female admitted with hypoxia and pneumonia due to COVID-19. Pt is currently intubated and sedated. Tube feedings were ordered yesterday. There are no previous weights in chart. Recommendations provided. Will continue to monitor. Principal Problems/Diagnoses: hypoxia, pneumonia due to COVID-19. PMH: Hypertension GI: flat, firm abdomen, last recorded BM 03/15 Skin: intact Labs: 03/16: Na 135, K 3.9, BUN 18, Cr 0.46, Glu 116 03/13: Na 140, K 3.9, BUN 20, Cr 0.84, Gluc 185, Mg 2.3 (03/09/20) Na 145, BUN 27, Glu 165, Ca 8.0, AST 50 Meds: vitamin D, colace, pepcid, zinc sulfate, vitamin C, antibiotics, dexmethasone, zofran Ht: 63 inches Wt: 170 lbs (03/16) 169 lb (03/13), 161 lbs (03/07) BMI: 28.5 kg/m2 (using wt of 161 lbs) IBW: 115 lbs Malnutrition Evaluation (03/09/20) Unable to assess. Will re-evaluate at follow-up as appropriate. Nutrition Prescription (Diet Order): Vital AF @ 20 mL/hr (576 kcal and 36 gm protein) TF is off at this time since pt was extubated today Estimated Nutritional Needs: 8946-2505 calories/day (18-20 kcal/kg CBW) Weight used 161 lbs 95-145 g protein/day (1.3-2 g pro/kg CBW) Weight used: 161 lbs Diet Adequacy: Not meeting calorie needs, Not meeting protein needs tube feeding is off since pt was extubated today Tolerance: tube feeding is currently off due to extubation Diet Education Needs Assessment: Diet education not indicated Nutrition Care Level: moderate Nutrition Diagnosis: Inadequate oral intake related to acute respiratory failure/mechanical ventilation as evidenced by pt requiring enteral nutrition. Goal: Patient will meet 75-100% of estimated needs by follow up Progress: goal not met (tube feeding is off due to extubation) Interventions: - mineral modified diet, Composition, Rate, Route, Recommended Modifications Monitoring/Evaluation: -Total energy intake, Total protein intake, Formula/Solution, Weight change Signed: Talia Hayward RD, LD
[2020-03-16] MEDS ORDERED: ONDANSETRON HCL INJ 2MG/ML 2ML 2 MG/ML VIAL IV SCH (16:30)
--- NOTE | 2020-03-16 17:52 | Progress Note ---
DATE: SUBJECTIVE: Ms. Gooden remains in intensive care unit. Sedation was stopped, awake, following commands, placed on spontaneous breathing. We attempt to wean her. PHYSICAL EXAMINATION: VITAL SIGNS: Stable. HEENT: She is not icteric. NECK: Supple. CHEST: Few crackles. HEART: S1, S2. No murmurs. ABDOMEN: Soft. IMPRESSION: This is day #10 of admission for respiratory failure, viral pneumonia. Plan for her to be extubated. Continue with the supportive care. The patient was given a course of antibiotic. We will follow with you. MD MARJAN Rapp/SHELLIE /[id number]
--- NOTE | 2020-03-16 18:09 | NUR ---
Ms. Gooden had two episodes of nausea and vomiting, moderate amount of yellow bilious looking liquid. Also some expiratory wheezes were noted. Dr. Avitia was notified, new orders received for HHN treatment and zofran for N/V. No additional episodes of N/V were appreciated. Pt hypertensive, medicated X 1 with prn hydralazine with good results. Continuous cardiac and respiratory monitoring in progress. All PO meds and tube feedings were held at present. Will be restarted as soon as it is safe to do so.
[2020-03-16 20:40] LABS: ABG HCO3 27 mmol/L (22-26); ABG PCO2 35 mmHg (35-45); ABG PO2 69 mmHg (80-105)
[2020-03-16] MEDS: ENOXAPARIN SOD INJ 40 MG/0.4 ML SYR SC SCH (21:31)
[2020-03-16] MEDS ORDERED: SODIUM CHLORIDE 0.9% 250ML 250 ML ONE (21:58)
[2020-03-16] MEDS: ONDANSETRON HCL INJ 2MG/ML 2ML 2 MG/ML VIAL IV PRN (23:50)
[2020-03-17] VITALS (28 sets, daily range): BP systolic 147–190; BP diastolic 52–84
[2020-03-17] MEDS: VANCOMYCIN HCL 1.25 GM in SODIUM CHLORIDE 0.9% 250ML 250 ML IV SCH ×2 (00:35→14:44)
[2020-03-17] MEDS: MEROPENEM 500MG/ NS 50ML 50 ML IV SCH ×2 (06:31→14:44)
[2020-03-17 07:18] LABS: BASOPHILS % 0.2 % (0.0-1.0); HEMATOCRIT 35.3 % (34.2-44.1); HEMOGLOBIN 11.4 g/dL (12.0-16.0); LYMPHOCYTES # (AUTO) 1.1 (1.0-3.2); LYMPHOCYTES % 5.6 % (18.0-39.1); MEAN CORPUSCULAR HEMOGLOBIN 29.2 pg (28-32); MEAN CORPUSCULAR HGB CONC 32.3 g/dL (31-35); MEAN CORPUSCULAR VOLUME 90.5 fL (81-99); MONOCYTES # (AUTO) 1.5 (0.2-0.8); MONOCYTES % 7.9 % (4.4-11.3); PLATELET COUNT 379 x10e3/uL (140-360); RED CELL DISTRIBUTION WIDTH 13.5 % (11.7-14.4)
[2020-03-17 07:29] LABS: ANION GAP 13.9 mmol/L (8-16); BLOOD UREA NITROGEN 15 mg/dL (7-26); BUN/CREATININE RATIO 31 (6-25); CALCIUM 8.8 mg/dL (8.4-10.2); CARBON DIOXIDE 28 mmol/L (22-29); CHLORIDE 99 mmol/L (98-107); CREATININE, SERUM 0.48 mg/dL (0.57-1.11); EST GLOMERULAR FILTRATION RATE > 60 ML/MIN (60-); GLUCOSE 102 mg/dL (74-118); POTASSIUM 3.9 mmol/L (3.5-5.1); SODIUM 137 mmol/L (136-145)
[2020-03-17] MEDS: ASCORBIC ACID 500 MG TAB PO SCH ×2 (09:00→17:00)
[2020-03-17] MEDS: ZINC SULFATE 220 MG CAP PO SCH ×2 (09:00→17:00)
[2020-03-17] MEDS: CHOLECALCIFEROL 400 UNIT TAB NG SCH (09:00)
[2020-03-17] MEDS: PANTOPRAZOLE 40 MG 10ML VIAL IV SCH ×2 (09:00→17:48)
[2020-03-17] MEDS: DOCUSATE SODIUM LIQD 100 MG/10 ML UDC NG SCH ×2 (09:00→17:00)
[2020-03-17 09:14] LABS: ABG HCO3 28 mmol/L (22-26); ABG PCO2 35 mmHg (35-45); ABG PO2 71 mmHg (80-105)
--- NOTE | 2020-03-17 09:26 | Diagnostic Imaging Report ---
EXAM: Abdomen Radiograph INDICATION: R/O ILEUS COMPARISON: None FINDINGS: TUBES and LINES: There is NG tube in place with distal tip in the stomach. There is a Ballesteros catheter. LOWER CHEST: No abnormalities in the lower chest. ABDOMEN: There is paucity of air within the bowel. No definite signs of ileus or obstruction. No pneumoperitoneum. No abnormal abdominal calcifications. BONES AND SOFT TISSUES: No acute osseous lesion. Soft tissues are unremarkable. IMPRESSION: Paucity of air within the bowel. No definite signs of ileus or obstruction. Signed by: Frankie Núñez MD on 03/17/2020 9:23 AM
[2020-03-17] MEDS: ARTIFICIAL TEARS (OPTH) 15 ML BTL OU SCH ×2 (10:23→17:39)
[2020-03-17] MEDS: ENOXAPARIN SOD INJ 40 MG/0.4 ML SYR SC SCH ×2 (10:24→20:49)
[2020-03-17] MEDS: FAMOTIDINE 20 MG/2 ML VIAL IV SCH ×2 (14:25→17:48)
[2020-03-17] MEDS: DEXAMETHASONE SOD PHOS INJ 4 MG/ML VIAL IV SCH (14:43)
[2020-03-17] MEDS ORDERED: GLYCERIN ADULT 3 GM SUPP PR PRN (15:30)
--- NOTE | 2020-03-17 16:01 | Progress Note ---
DATE: SUBJECTIVE: The patient is extubated and on 5 L. She had some vomiting this morning. She does not complain of abdominal pain. She has not had any bowel movements. She received Pepcid and Protonix along with Zofran. GI was also consulted. PHYSICAL EXAMINATION: VITAL SIGNS: The patient is afebrile. The vital signs are stable. HEENT: Shows no facial swelling or erythema. CARDIAC: Reveals regular rate and rhythm with normal S1 and S2. LUNGS: Auscultation of lungs reveals rhonchorous breath sounds bilaterally. There is no wheezing. ABDOMEN: Soft and nontender. There is no rebound or guarding. EXTREMITIES: There is no leg edema. LABORATORY DATA: White blood cell count is 18.8 and hemoglobin is 11.4. The platelet count is 379. The BUN to creatinine ratio is 15 to 0.48. The other electrolytes are within normal limits. The albumin is 2.2. RADIOGRAPHIC DATA: Abdominal x-ray shows no acute disease. IMPRESSION: 1. Viral pneumonia and COVID-19 infection. 2. Acute respiratory failure. 3. Nausea and vomiting. 4. Viral pericarditis. 5. Hypertension. PLAN: 1. Continue to wean oxygen. 2. Complete dexamethasone. 3. Lovenox. 4. Continue Protonix and Pepcid along with Zofran. 5. Glycerin suppository. 6. Await GI consultation. Brandon Avitia MD [facility]/MODL /[id number]
[2020-03-17 16:22] LABS: ALBUMIN 2.6 g/dL (3.5-5.0); BILIRUBIN,DIRECT 0.4 mg/dL (0.0-0.5)
--- NOTE | 2020-03-17 17:52 | Progress Note ---
DATE: SUBJECTIVE: Ms. Gooden remains in the intensive care unit. This is day 11. She was extubated today, looks comfortable. She had some nausea earlier and vomiting. PHYSICAL EXAMINATION: GENERAL: She is currently stable. VITAL SIGNS: Stable, afebrile. HEENT: She is not icteric. NECK: Supple. CHEST: Clear. COR: S1 and S2. ABDOMEN: Soft. Respiratory failure resolved. ASSESSMENT AND PLAN: The patient is going to finish dexamethasone in 2 more days and will stop her meropenem and vancomycin. We will obtain amylase lipase and want to put her on Reglan and erythromycin for her nausea and ileus, check amylase and lipase. We will reassess in the morning. We will adjust to Reglan. We will follow. MD MARJAN Rapp/SHELLIE /[id number]
--- NOTE | 2020-03-17 18:44 | NUR ---
Ms. Gooden is on oxygen @ 5 LPM via N/C. Saturation 94-96%. Variable respiratory rate. Continues to vomit dark yellow green liquid. NGT connected to low intermittent suction. PO meds held, GI consult ordered this am, patient started on protonix IV along with famotadine as per MD. KUB performed in the am. Glycerin suppository administered as ordered. Patient flatulent no evidence of stool noted. Episodes of hypertension noted, pt medicated X 2 with hydralazine with good results. ADL's provided by staff. Oral care provided and the patient was turned and repositioned as tolerated. Continuous cardiac and respiratory monitoring in progress.
[2020-03-17] MEDS ORDERED: PANTOPRAZOLE 40 MG 10ML VIAL IV STA (21:20)
[2020-03-17] MEDS: PANTOPRAZOL 40MG/SOD CHL 0.9% 50 ML IV SCH (22:40)
[2020-03-18] VITALS (10 sets, daily range): BP systolic 74–176; BP diastolic 72–82
[2020-03-18] MEDS: METOCLOPRAMIDE HCL 10 MG/2ML VIAL IV SCH ×5 (00:15→23:45)
[2020-03-18 02:44] LABS: BILIRUBIN,URINE NEGATIVE (NEGATIVE); CLARITY,URINE CLEAR (CLEAR); COLOR,URINE YELLOW (YELLOW); KETONES,URINE NEGATIVE (NEGATIVE); LEUKOCYTE ESTERASE ,URINE NEGATIVE (NEGATIVE); NITRITE,URINE NEGATIVE (NEGATIVE); PROTEIN,URINE DIPSTICK NEGATIVE (NEGATIVE); URINE UROBILINOGEN 1 mg/dL (0.2 - 1)
[2020-03-18 02:45] LABS: BACTERIA,URINE MODERATE /HPF; EPITHELIAL CELLS,URINE FEW /LPF
--- NOTE | 2020-03-18 03:15 | NUR ---
Patient arrived to unit from ICU. Currently stable on 4L NC, no s/s of distress at this time. NGT clamped for trial per ICU nurse. Lesli Benson prior to arrival. All safety measures in place. Will continue to monitor.
[2020-03-18] MEDS: HYDRALAZINE HCL 20 MG/ML VIAL IV PRN ×3 (03:30→20:16)
[2020-03-18] MEDS: PANTOPRAZOL 40MG/SOD CHL 0.9% 50 ML IV SCH ×5 (03:44→21:37)
[2020-03-18 05:47] LABS: BASOPHILS % 0.1 % (0.0-1.0); EOSINOPHILS % 0.1 % (0.0-6.0); HEMATOCRIT 32.8 % (34.2-44.1); HEMOGLOBIN 10.9 g/dL (12.0-16.0); LYMPHOCYTES % 6.2 % (18.0-39.1); MEAN CORPUSCULAR HEMOGLOBIN 30.6 pg (28-32); MEAN CORPUSCULAR HGB CONC 33.2 g/dL (31-35); MEAN CORPUSCULAR VOLUME 92.1 fL (81-99); MONOCYTES # (AUTO) 1.5 (0.2-0.8); MONOCYTES % 9.3 % (4.4-11.3); NEUTROPHILS # (AUTO) 13.2 (2.1-6.9); NEUTROPHILS % 83.2 % (38.7-80.0); PLATELET COUNT 297 x10e3/uL (140-360); RED BLOOD COUNT 3.56 x10e6/uL (3.6-5.1); RED CELL DISTRIBUTION WIDTH 13.6 % (11.7-14.4)
[2020-03-18 06:22] LABS: ALANINE AMINOTRANSFERASE 82 IU/L (0-55); ALBUMIN 2.5 g/dL (3.5-5.0); ALBUMIN/GLOBULIN RATIO 0.7 (0.8-2.0); ALKALINE PHOSPHATASE 81 IU/L (40-150); BLOOD UREA NITROGEN 14 mg/dL (7-26); BUN/CREATININE RATIO 28 (6-25); CARBON DIOXIDE 25 mmol/L (22-29); CHLORIDE 102 mmol/L (98-107); EST GLOMERULAR FILTRATION RATE > 60 ML/MIN (60-); GLUCOSE 102 mg/dL (74-118); SODIUM 137 mmol/L (136-145)
--- NOTE | 2020-03-18 07:10 | NUR ---
Received patient mid fowlers position, side rails upx2, call light within reach, bed alarm on. Resting with eyes closed. Respirations even and unlabored. O2 3L NC. Left nare NG tube clamped. Will continue to monitor.
[2020-03-18] MEDS: FAMOTIDINE 20 MG/2 ML VIAL IV SCH ×2 (07:42→15:33)
[2020-03-18] MEDS ORDERED: METOCLOPRAMIDE HCL 10 MG/2ML VIAL IV SCH (09:00)
[2020-03-18] MEDS: DOCUSATE SODIUM LIQD 100 MG/10 ML UDC NG SCH ×2 (09:00→17:00)
[2020-03-18] MEDS: ASCORBIC ACID 500 MG TAB PO SCH ×2 (09:00→17:00)
[2020-03-18] MEDS: CHOLECALCIFEROL 400 UNIT TAB NG SCH (09:00)
[2020-03-18] MEDS: ARTIFICIAL TEARS (OPTH) 15 ML BTL OU SCH ×2 (09:00→17:05)
[2020-03-18] MEDS: ZINC SULFATE 220 MG CAP PO SCH ×2 (09:00→17:00)
[2020-03-18] MEDS: ENOXAPARIN SOD INJ 40 MG/0.4 ML SYR SC SCH ×2 (09:02→20:15)
[2020-03-18] MEDS: MORPHINE SULFATE 2 MG/ML SYR 1ML IV PRN ×2 (10:42→15:33)
[2020-03-18] MEDS: ONDANSETRON HCL INJ 2MG/ML 2ML 2 MG/ML VIAL IV PRN (10:42)
--- NOTE | 2020-03-18 10:50 | NUR ---
Bladder scan done 496ml noted. Mckenzie Wilkinson DEWER notified. See orders
--- NOTE | 2020-03-18 11:00 | NUR ---
Dr.Hampel Matta notified of consult
--- NOTE | 2020-03-18 11:10 | NUR ---
16F chicas catheter inserted by Jose LUCAS. Pallavi LUCAS at bedside. 420ml Clear yellow urine noted.
--- NOTE | 2020-03-18 12:05 | Consultation ---
DATE OF CONSULTATION: 03/18/2020 Urology Consultation REASON FOR CONSULTATION: Urinary retention. HISTORY OF PRESENT ILLNESS: Teresa Sewell is a 59-year-old woman, who was admitted with COVID-19. She was admitted with fever, dyspnea, cough, and dysphagia. This progressively worsened. She was admitted to the ICU and intubated. She was subsequently extubated and transferred to the non-ICU COVID [place], where she was having difficult time urinating following removal of her Ballesteros catheter, was found to have urinary retention of 600 mL. Urological consultation was sought. I instructed the nurse to place Ballesteros catheter, which she did, which showed 420 mL in the bladder. The patient really cannot give a history due to the fact she is having difficult time verbalizing. Most information was obtained from discussion with the nurses as well as review of the patient's chart. It is unclear whether this patient has had any previous Urological intervention or evaluation. The patient seems to deny any prior Urological intervention. Denies hematuria and urinary tract infections. PAST MEDICAL AND SURGICAL HISTORY: 1. Status post cholecystectomy. 2. Status post abdominoplasty. 3. Hypertension. 4. Obesity. FAMILY HISTORY: Noncontributory to the active urological problems. SOCIAL HISTORY: The patient denies smoking, ethanol, or drug use. ALLERGIES: NONE KNOWN. CURRENT MEDICATIONS: Please refer to the MAR for current medications. Apparently, the patient was not on any medications prior to admission. REVIEW OF SYSTEMS: Believed to be consistent with above history of present illness and past medical history, otherwise negative for all systems. PHYSICAL EXAMINATION: GENERAL: Ill-appearing woman, lying in bed, in no apparent distress. VITAL SIGNS: She is currently afebrile. Vital signs are currently relatively stable. ABDOMEN: Obese, soft, nondistended, and nontender. GENITOURINARY: Ballesteros catheter in place, draining clear urine output. No evidence of any blood at this time in the urine. LABORATORY STUDIES: The patient's white blood cell count is elevated at 15,900, hemoglobin 10.9, and platelets are 297,000. The patient's creatinine is normal at 0.50. The patient did have slightly low sodium several days ago, but that has since resolved. Calcium was also low several days ago and that has also been normalized. Urinalysis showed 11-20 rbc's and it showed 6-10 wbc's and moderate bacteria. Unfortunately, no urine culture was done on this urinalysis specimen as of yet and I will order that urine culture. ASSESSMENT: 1. Urinary retention. 2. Ballesteros catheter, now in situ. 3. Leukocytosis. 4. Anemia. 5. Hyponatremia, improved. 6. Hypocalcemia, improved. 7. Microhematuria. 8. Pyuria and probable urinary tract infection. PLAN: 1. Urine culture and sensitivity. 2. Leave the Ballesteros catheter in place. 3. Once the patient is better, we will plan to follow her up in the office for urodynamic study as long as she has rehabilitated to the point where she can participate with such test. 4. For now, I will leave the patient's Ballesteros catheter in place and plan on leaving her in place upon discharge. 5. Ongoing Urological followup is a must. 6. Based on the urine culture and sensitivity, I will recommend treating an infection if present. Thank you very much for involving us in the care of your patient. We will be happy to follow her along with you as well as an outpatient. Heriberto Ramsay MD [facility]/MODL /[id number]
[2020-03-18] MEDS: DEXAMETHASONE SOD PHOS INJ 4 MG/ML VIAL IV SCH (12:30)
--- NOTE | 2020-03-18 13:20 | Diagnostic Imaging Report ---
EXAM: Complete Abdominal Ultrasound INDICATION: VOMITING COMPARISON: None. TECHNIQUE: Transverse and longitudinal images of the upper abdomen were obtained. FINDINGS: Liver: Size: 14.9 cm in the right midclavicular line, Normal Appearance: Increased echogenicity, smooth contour Mass: No focal masses Gallbladder: Status post cholecystectomy. Bile Ducts: Intrahepatic Ducts: No dilatation Extrahepatic Ducts: Common bile duct measures 0.5 cm, no dilatation Spleen, pancreas and IVC were not seen due to bowel overlying bowel. Right Kidney: Size: 10.6 cm Echogenicity: Echogenic Parenchymal thickness: Normal Collecting System: No hydronephrosis Stone: None Cyst/Mass: None IMPRESSION: Diffuse hepatic steatosis without focal mass. Signed by: Frankie Núñez MD on 03/18/2020 1:16 PM
--- NOTE | 2020-03-18 16:11 | Progress Note ---
DATE: SUBJECTIVE: The patient is transferred out of the Intensive Care Unit. She is now on nasal cannula at 3 L. PHYSICAL EXAMINATION: VITAL SIGNS: Blood pressure is 163/74 and O2 saturation is 94% on 3 L. HEENT: Shows no facial swelling or erythema. CARDIAC: Reveals regular rate and rhythm with normal S1, S2. LUNGS: Auscultation of lungs revealed crackles at the bases. There is no wheezing. ABDOMEN: Soft and nontender. There is no rebound or guarding. EXTREMITIES: Shows no leg edema or calf tenderness. IMPRESSION: 1. Acute respiratory failure. 2. Viral pneumonia and COVID-19 infection. 3. Viral pericarditis. 4. Hypertension. 5. Urinary retention. PLAN: 1. Continue to wean oxygen as tolerated. 2. Continue Ballesteros catheter for now. 3. Complete course of dexamethasone. 4. Continue Protonix. Brandon Avitia MD [facility]/MODL /[id number]
--- NOTE | 2020-03-18 18:55 | NUR ---
Report given to oncoming nurse of patient's status. Resting in bed mid fowlers position. Left nare NG tube in place. Respirations even and unlabored. O2 3L NC. Side rails upx3, call light within reach, bed alarm on.
--- NOTE | 2020-03-18 19:58 | NUR ---
Resumed care of patient. Patient awake and resting in bed, respirations even and unlabored on 3L NC, no s/s of distress at this time. Left NGT clamped. Ballesteros catheter patent and draining clear yellow urine to gravity, bag hung below bladder. All safety measures in place. Will continue to monitor.
[2020-03-19] VITALS (8 sets, daily range): BP systolic 142–175; BP diastolic 64–80
--- NOTE | 2020-03-19 02:38 | NUR ---
Dr. Eduardo Torres here to see patient. Per MD, keep NGT clamped for now and consider removing if patient passes swallow eval scheduled for later today.
[2020-03-19] MEDS: PANTOPRAZOL 40MG/SOD CHL 0.9% 50 ML IV SCH ×5 (03:18→19:50)
[2020-03-19 05:22] LABS: BASOPHILS % 0.3 % (0.0-1.0); EOSINOPHILS % 0.4 % (0.0-6.0); HEMATOCRIT 32.2 % (34.2-44.1); HEMOGLOBIN 10.4 g/dL (12.0-16.0); LYMPHOCYTES # (AUTO) 1.4 (1.0-3.2); LYMPHOCYTES % 12.5 % (18.0-39.1); MEAN CORPUSCULAR HEMOGLOBIN 29.4 pg (28-32); MEAN CORPUSCULAR HGB CONC 32.3 g/dL (31-35); MONOCYTES # (AUTO) 1.2 (0.2-0.8); MONOCYTES % 10.4 % (4.4-11.3); NEUTROPHILS # (AUTO) 8.4 (2.1-6.9); NEUTROPHILS % 75.3 % (38.7-80.0); PLATELET COUNT 311 x10e3/uL (140-360); RED BLOOD COUNT 3.54 x10e6/uL (3.6-5.1); RED CELL DISTRIBUTION WIDTH 13.2 % (11.7-14.4)
[2020-03-19] MEDS: METOCLOPRAMIDE HCL 10 MG/2ML VIAL IV SCH ×3 (05:53→17:57)
[2020-03-19] MEDS: HYDRALAZINE HCL 20 MG/ML VIAL IV PRN ×2 (05:53→20:12)
[2020-03-19 06:19] LABS: ALANINE AMINOTRANSFERASE 62 IU/L (0-55); ALBUMIN 2.6 g/dL (3.5-5.0); ALBUMIN/GLOBULIN RATIO 0.7 (0.8-2.0); ALKALINE PHOSPHATASE 74 IU/L (40-150); BLOOD UREA NITROGEN 15 mg/dL (7-26); BUN/CREATININE RATIO 31 (6-25); CALCIUM 8.9 mg/dL (8.4-10.2); CARBON DIOXIDE 26 mmol/L (22-29); CHLORIDE 103 mmol/L (98-107); CREATININE, SERUM 0.49 mg/dL (0.57-1.11); EST GLOMERULAR FILTRATION RATE > 60 ML/MIN (60-); GLUCOSE 82 mg/dL (74-118); SODIUM 140 mmol/L (136-145)
--- NOTE | 2020-03-19 07:30 | NUR ---
Infectious disease progress note Late entry 03/18/2020 Patient seen and examined discussed with the medical team laboratory reviewed he patient is transferred out of the Intensive Care Unit. She is now on nasal cannula at 3 L. PHYSICAL EXAMINATION: VITAL SIGNS: Blood pressure is 163/74 and O2 saturation is 94% on 3 L. HEENT: Shows no facial swelling or erythema. CARDIAC: Reveals regular rate and rhythm with normal S1, S2. LUNGS: Auscultation of lungs revealed crackles at the bases. There is no wheezing. ABDOMEN: Soft and nontender. There is no rebound or guarding. EXTREMITIES: Shows no leg edema or calf tenderness. IMPRESSION: 1. Acute respiratory failure. 2. Viral pneumonia and COVID-19 infection. 3. Viral pericarditis. 4. Hypertension. 5. Urinary retention. PLAN: 1. Continue to wean oxygen as tolerated. 2. Continue Ballesteros catheter for now. 3. Complete course of dexamethasone. 4. Continue Protonix.
[2020-03-19] MEDS: FAMOTIDINE 20 MG/2 ML VIAL IV SCH ×2 (07:51→17:57)
[2020-03-19] MEDS: ENOXAPARIN SOD INJ 40 MG/0.4 ML SYR SC SCH ×2 (07:51→20:12)
[2020-03-19] MEDS: ASCORBIC ACID 500 MG TAB PO SCH ×2 (07:51→17:57)
[2020-03-19] MEDS: CHOLECALCIFEROL 400 UNIT TAB NG SCH (07:51)
[2020-03-19] MEDS: ARTIFICIAL TEARS (OPTH) 15 ML BTL OU SCH ×2 (07:51→17:57)
[2020-03-19] MEDS: DOCUSATE SODIUM LIQD 100 MG/10 ML UDC NG SCH ×2 (07:51→17:57)
[2020-03-19] MEDS: ZINC SULFATE 220 MG CAP PO SCH ×2 (07:52→17:57)
[2020-03-19] MEDS: DEXAMETHASONE SOD PHOS INJ 4 MG/ML VIAL IV SCH (11:13)
--- NOTE | 2020-03-19 11:30 | NUR ---
Decreased O2 from 5L to 4L. SPO2 95%
--- NOTE | 2020-03-19 11:43 | Progress Note ---
DATE: SUBJECTIVE: The patient is now out of the Intensive Care Unit. She is on 5 L of oxygen. She still has an NG tube and is awaiting a swallowing evaluation. PHYSICAL EXAMINATION: VITAL SIGNS: The blood pressure is 143/60 and saturation is 95% on 3 L. The T-max is 99.8. HEENT: Shows no facial swelling or erythema. LYMPHATIC: Shows no submandibular, cervical, or supraclavicular adenopathy. There is still an NG tube in place. CARDIAC: Reveals regular rate and rhythm with normal S1 and S2. LUNGS: Auscultation of lungs reveals crackles at the bases. There is no wheezing. ABDOMEN: Soft and nontender. There is no rebound or guarding. EXTREMITIES: Shows no leg edema or calf tenderness. There is no cyanosis or clubbing. SKIN: Shows no rashes. NEUROLOGICAL: Shows no focal abnormalities. LABORATORY DATA: White blood cell count is 11.1, hemoglobin is 10.4. The platelet count is 311. BUN to creatinine ratio is normal. Other electrolytes are within normal limits and the albumin is 2.6. RADIOGRAPHIC DATA: Ultrasound of the abdomen shows hepatic steatosis with no focal mass. IMPRESSION: 1. Acute respiratory failure. 2. Viral pneumonia and COVID-19 infection. 3. Steatohepatitis. 4. Viral pericarditis. 5. Urinary retention. 6. Hypertension. PLAN: 1. Wean oxygen as tolerated. 2. Continue Ballesteros for now and re-attempt to remove catheter when okay with Urology. 3. Complete speech therapy and remove feeding tube. 4. Continue current dexamethasone for a total of 10 days. 5. Complete antibiotics. 6. Continue Protonix. Brandon Avitia MD [facility]/MODL /[id number]
--- NOTE | 2020-03-19 15:24 | Progress Note ---
DATE: SUBJECTIVE: Ms. Gooden is doing better. She is still having problem with swallowing. The patient is weak, but she looks slightly better than yesterday actually. PHYSICAL EXAMINATION: GENERAL: She is currently alert and oriented. VITAL SIGNS: Stable, currently afebrile. HEENT: She is not icteric. NECK: Supple. CHEST: Clear. ABDOMEN: Soft. IMPRESSION: Coronavirus Disease-19, respiratory failure, seems better. Debility. Recommend to discontinue NG tube. Encourage p.o. intake. Can change to oral dexamethasone once stable. PT/OT. Discharge planning with home oxygen. MD MARJAN Rapp/MODL /[id number]
--- NOTE | 2020-03-19 16:30 | NUR ---
Per Dr.Haddad Clark Vital 1.2 to be resumed at 20cc/hr and to reach a goal of 60ml/hr as tolerated. Started patient on Vital 20ml/hr via left nare NG tube. Denies nausea. No abdominal distention noted.
--- NOTE | 2020-03-19 19:15 | NUR ---
Resumed care of patient. Patient awake and sitting up in bed, alert and oriented, respirations even and unlabored on 4L NC. Left NGT in place with tube feedings at 20 ml/hr. Ballesteros catheter patent and draining to gravity, bag hung below bladder. Family currently visiting through window. Bed locked and in lowest position, side rails upx3, alarm on, call light placed within reach. All safety measures in place. Will continue to monitor.
--- NOTE | 2020-03-19 19:44 | NUR ---
Report given to oncoming nurse of patient's status. No s/s of acute distress noted. Resting in bed. Side rails upx2, call light within reach.
[2020-03-19] MEDS: MORPHINE SULFATE 2 MG/ML SYR 1ML IV PRN (20:12)
[2020-03-19] MEDS: ONDANSETRON HCL INJ 2MG/ML 2ML 2 MG/ML VIAL IV PRN (20:12)
--- NOTE | 2020-03-19 23:53 | NUR ---
Tube feeding increased to 30 ml/hr.
[2020-03-20] VITALS (8 sets, daily range): BP systolic 131–170; BP diastolic 74–84
[2020-03-20] MEDS: PANTOPRAZOL 40MG/SOD CHL 0.9% 50 ML IV SCH ×5 (00:22→21:18)
[2020-03-20] MEDS: METOCLOPRAMIDE HCL 10 MG/2ML VIAL IV SCH ×4 (00:22→17:12)
--- NOTE | 2020-03-20 01:33 | NUR ---
Dr. Eduardo Torres here to see patient. No new orders received at this time.
[2020-03-20] MEDS: MORPHINE SULFATE 2 MG/ML SYR 1ML IV PRN (03:32)
[2020-03-20] MEDS: ONDANSETRON HCL INJ 2MG/ML 2ML 2 MG/ML VIAL IV PRN (03:32)
[2020-03-20 05:10] LABS: BASOPHILS % 0.3 % (0.0-1.0); EOSINOPHILS # (AUTO) 0.1 (0.0-0.4); EOSINOPHILS % 0.6 % (0.0-6.0); HEMATOCRIT 32.5 % (34.2-44.1); HEMOGLOBIN 10.4 g/dL (12.0-16.0); LYMPHOCYTES # (AUTO) 1.4 (1.0-3.2); LYMPHOCYTES % 12.8 % (18.0-39.1); MEAN CORPUSCULAR HEMOGLOBIN 29.8 pg (28-32); MEAN CORPUSCULAR VOLUME 93.1 fL (81-99); MONOCYTES # (AUTO) 1.2 (0.2-0.8); MONOCYTES % 11.1 % (4.4-11.3); NEUTROPHILS # (AUTO) 8.4 (2.1-6.9); NEUTROPHILS % 74.6 % (38.7-80.0); PLATELET COUNT 291 x10e3/uL (140-360); RED BLOOD COUNT 3.49 x10e6/uL (3.6-5.1); RED CELL DISTRIBUTION WIDTH 13.2 % (11.7-14.4)
[2020-03-20 05:29] LABS: ALANINE AMINOTRANSFERASE 53 IU/L (0-55); ALBUMIN 2.6 g/dL (3.5-5.0); ALBUMIN/GLOBULIN RATIO 0.7 (0.8-2.0); ALKALINE PHOSPHATASE 73 IU/L (40-150); ANION GAP 13.8 mmol/L (8-16); BLOOD UREA NITROGEN 19 mg/dL (7-26); BUN/CREATININE RATIO 37 (6-25); CALCIUM 8.9 mg/dL (8.4-10.2); CARBON DIOXIDE 27 mmol/L (22-29); CHLORIDE 104 mmol/L (98-107); CREATININE, SERUM 0.51 mg/dL (0.57-1.11); EST GLOMERULAR FILTRATION RATE > 60 ML/MIN (60-); GLUCOSE 105 mg/dL (74-118); POTASSIUM 3.8 mmol/L (3.5-5.1); SODIUM 141 mmol/L (136-145)
[2020-03-20 05:51] LABS: FERRITIN 685.16 ng/mL (4.63-204.00)
--- NOTE | 2020-03-20 07:49 | Diagnostic Imaging Report ---
EXAMINATION: CHEST SINGLE (PORTABLE) INDICATION: COVID COMPARISON: Chest radiograph 03-16-2020. FINDINGS: TUBES and LINES: Unchanged right arm PICC and enteric tube. LUNGS: Lungs are well inflated. Persistent bilateral lower lung zone predominant patchy opacities. PLEURA: Trace bilateral pleural effusions. No pneumothorax. HEART AND MEDIASTINUM: The cardiomediastinal silhouette is mildly enlarged. There are atherosclerotic calcifications within the aorta. BONES AND SOFT TISSUES: No acute osseous lesion. Soft tissues are unremarkable. UPPER ABDOMEN: No free air under the diaphragm. IMPRESSION: Persistent bilateral patchy opacities, compatible with atypical pneumonia. Signed by: Dr. Dilshad Pacheco MD on 03/20/2020 7:46 AM
[2020-03-20] MEDS: ARTIFICIAL TEARS (OPTH) 15 ML BTL OU SCH ×2 (08:55→17:12)
[2020-03-20] MEDS: ZINC SULFATE 220 MG CAP PO SCH ×2 (08:55→17:12)
[2020-03-20] MEDS: CHOLECALCIFEROL 400 UNIT TAB NG SCH (08:55)
[2020-03-20] MEDS: ENOXAPARIN SOD INJ 40 MG/0.4 ML SYR SC SCH ×2 (08:55→20:26)
[2020-03-20] MEDS: ASCORBIC ACID 500 MG TAB PO SCH ×2 (08:55→17:12)
[2020-03-20] MEDS: FAMOTIDINE 20 MG/2 ML VIAL IV SCH ×2 (08:55→17:12)
[2020-03-20] MEDS: DOCUSATE SODIUM LIQD 100 MG/10 ML UDC NG SCH ×2 (08:55→17:12)
--- NOTE | 2020-03-20 09:20 | NUR ---
CALLED AND SPOKE WITH HENNA MORRISON [phone] WHOM STATES IT IS OKAY WIT BEGIN THE PROCESS TO [facility]. FAXING CLINICALS TO [phone]
[2020-03-20] MEDS: DEXAMETHASONE SOD PHOS INJ 4 MG/ML VIAL IV SCH (11:34)
--- NOTE | 2020-03-20 16:21 | Diagnostic Imaging Report ---
Modified Barium Swallow: Clinical History: Aspiration Comparison: None Fluoro time in minutes: 3.5 Radiation dose: 20.5 mGy air Kerma. Number of images: Multiple Report: The patient ingested various consistencies of barium with a speech pathologist in attendance. A full report from speech pathology will follow. Impression: Fluoroscopy service provided for modified barium swallow. Signed by: Dominick Rodriguez MD on 03/20/2020 4:17 PM
--- NOTE | 2020-03-20 17:26 | Progress Note ---
DATE: SUBJECTIVE: The patient still has an NG tube in place. She failed the swallowing evaluation. She remains on oxygen at 3 L. PHYSICAL EXAMINATION: VITAL SIGNS: The blood pressure is 144/76 and saturation is in the low 90s. HEENT: Shows no facial swelling or erythema. There is a nasogastric tube. CARDIAC: Reveals regular rate and rhythm with normal S1 and S2. LUNGS: Auscultation of lungs reveals rhonchorous breath sounds bilaterally. There is no wheezing. ABDOMEN: Soft and nontender. There is no rebound or guarding. EXTREMITIES: Shows no leg edema or calf tenderness. IMPRESSION: 1. Acute respiratory failure, that has improved. 2. Viral pneumonia and COVID-19 infection. 3. Anemia, unspecified. 4. Steatohepatitis. 5. Oropharyngeal dysphagia. 6. Urinary retention. PLAN: 1. Continue enteral feedings through feeding tube. 2. The patient needs continued speech therapy and physical therapy. 3. Continue catheter, to okay with Urology for removal. 4. Continue Protonix. 5. Probable transfer to inpatient rehab. MD CRYSTAL Carpenter/THOMASL /[id number]
--- NOTE | 2020-03-20 18:07 | Progress Note ---
DATE: SUBJECTIVE: Ms. Gooden is doing well. She is extremely fatigued. She is having swallow evaluation. PHYSICAL EXAMINATION: GENERAL: She is currently alert and oriented. VITAL SIGNS: Stable and afebrile. HEENT: She is not icteric. NECK: Supple. CHEST: Clear. This is day #14 hospitalization. IMPRESSION: Status post COVID-19 with aspiration. PLAN: The patient is to assess for aspiration precaution, may be feeding tube and then maybe rehab. Continue anticoagulation, PT/OT, discussed with the medical team. MD MARJAN Rapp/MODL /[id number]
[2020-03-20] MEDS: HYDRALAZINE HCL 20 MG/ML VIAL IV PRN (21:18)
--- NOTE | 2020-03-20 23:25 | NUR ---
REFUSES TO BE TURNED/REPOSITIONED AT THIS TIME. NEW TUBING FOR TUBE FEEDING PROVIDED.
--- NOTE | 2020-03-20 23:39 | Progress Note ---
DATE: CONSULTING PHYSICIANS: 1. Dr. Chula Schwab with Infectious Disease. 2. Dr. Heriberto Ramsay with Urology. 3. Dr. Brandon Avitia with Pulmonology. 4. Dr. Iain Avitia with Cardiology. 5. Dr. Bigg Torres with Gastroenterology. SUBJECTIVE: The patient denies any pain or shortness of breath. She does still have cough. No nausea or vomiting. She had two bowel movements today. She is able to move her legs without difficulty. OBJECTIVE: VITAL SIGNS: Temperature 97.7, heart rate 75, blood pressure 158/74, respirations 16, and oxygen saturation 98%. GENERAL: Supine. In no acute distress. LUNGS: Generally clear. Oxygen at 3 L/minute via nasal cannula. HEENT: EOMI. Left NG tube with Vital AF at 40 mL an hour. NECK: Supple. CARDIOVASCULAR: Regular rate and rhythm. No murmur. ABDOMEN: Bowel sounds positive. Soft and nontender. No guarding. EXTREMITIES: Right upper extremity PICC line with Protonix drip at 10 mL/h. No pitting edema. No clubbing, cyanosis, or signs of DVT. NEUROLOGICAL: GCS 15. Nonfocal. LABORATORY DATA: WBC is 11.21, hemoglobin 10.4, hematocrit 32.5, platelets 291. Sodium 141, potassium 3.8, chloride 104, CO2 of 27, BUN 19 and creatinine 0.51, estimated GFR greater than 60, glucose 105, calcium 8.9. Iron 81, TIBC 265, percent saturation 31, transferrin 189, ferritin 685.16, vitamin B12 869, folate is pending. Total bilirubin 0.7, AST 21, ALT 53, alkaline phosphatase 73, total protein 6.5, albumin 2.6. Coronavirus PCR collected this morning is pending. Final urine culture collected on 03/18, shows no growth after 36-48 hours. Imaging modified barium swallow completed today. Per speech therapy note dated today, the patient presented with tonuevzp-ws-honkwg oral dysphagia with poor bolus control, anterior spillage and orolingual residue, lzoaglun-nl-jgyrae pharyngeal dysphagia consistent with premature spillage to the level of the pyriform sinus, aspiration of multiple consistencies, inconsistent pharyngeal residue after the swallow dysphagia was judged to be secondary to decreased pharyngeal constriction, decreased hypolaryngeal excursion and severity of oral face. ASSESSMENT AND PLAN: 1. COVID-19 pneumonia with acute respiratory distress syndrome, currently off antibiotics. Continue Decadron, Lovenox, zinc, vitamin C, and vitamin D. 2. Uncontrolled hypertension. Blood pressure 158/74. Continue p.r.n. IV hydralazine. Monitor blood pressure. 3. Transaminitis, improved. LFTs now within normal limits. Monitor. 4. Generalized weakness. PT eval and treat. 5. Urinary retention. Ballesteros catheter has been placed. Urology is following. 6. Prophylaxis. Lovenox and Protonix. Billing code [id number]. Time spent 35 minutes. Dictated by Ryan Murillo NP MD SYLWIA Deras/THOMASL /[id number]
[2020-03-21] VITALS (8 sets, daily range): BP systolic 140–166; BP diastolic 63–83
[2020-03-21] MEDS: METOCLOPRAMIDE HCL 10 MG/2ML VIAL IV SCH ×4 (00:25→16:29)
--- NOTE | 2020-03-21 01:40 | NUR ---
ALERT AND ORIENTED. REFUSES TO BE TURNED AT THIS TIME. BED LOCKED AND IN LOW POSITION. CALL LIGHT WITHIN REACH. BED ALARM ACTIVATED.
[2020-03-21] MEDS: PANTOPRAZOL 40MG/SOD CHL 0.9% 50 ML IV SCH ×5 (02:03→21:38)
--- NOTE | 2020-03-21 02:46 | NUR ---
LANDA/PERICARE PROVIDED. CDI ALLEYVN PAD AND BARRIER CREME PLACED.
--- NOTE | 2020-03-21 03:55 | NUR ---
DAILY CHG BATH GIVEN. CENTRAL LINE CARE PROVIDED. NEW PORTS. SALINE FLUSHES. NEW ALCOHOL CAPS PLACED.
[2020-03-21 05:01] LABS: BASOPHILS % 0.1 % (0.0-1.0); EOSINOPHILS # (AUTO) 0.1 (0.0-0.4); HEMATOCRIT 31.9 % (34.2-44.1); HEMOGLOBIN 10.1 g/dL (12.0-16.0); LYMPHOCYTES # (AUTO) 1.5 (1.0-3.2); LYMPHOCYTES % 15.1 % (18.0-39.1); MEAN CORPUSCULAR HEMOGLOBIN 29.5 pg (28-32); MEAN CORPUSCULAR HGB CONC 31.7 g/dL (31-35); MEAN CORPUSCULAR VOLUME 93.3 fL (81-99); MONOCYTES # (AUTO) 0.9 (0.2-0.8); MONOCYTES % 9.4 % (4.4-11.3); NEUTROPHILS # (AUTO) 7.1 (2.1-6.9); NEUTROPHILS % 73.7 % (38.7-80.0); PLATELET COUNT 282 x10e3/uL (140-360); RED BLOOD COUNT 3.42 x10e6/uL (3.6-5.1); RED CELL DISTRIBUTION WIDTH 13.2 % (11.7-14.4)
[2020-03-21 05:23] LABS: ANION GAP 11.7 mmol/L (8-16); BLOOD UREA NITROGEN 16 mg/dL (7-26); BUN/CREATININE RATIO 29 (6-25); CALCIUM 8.7 mg/dL (8.4-10.2); CARBON DIOXIDE 28 mmol/L (22-29); CHLORIDE 102 mmol/L (98-107); CREATININE, SERUM 0.55 mg/dL (0.57-1.11); EST GLOMERULAR FILTRATION RATE > 60 ML/MIN (60-); GLUCOSE 114 mg/dL (74-118); POTASSIUM 3.7 mmol/L (3.5-5.1); SODIUM 138 mmol/L (136-145)
--- NOTE | 2020-03-21 06:10 | NUR ---
RECEIVED CALL FROM LAB. LAB REPORTS NEED FOR COVID TEST.
--- NOTE | 2020-03-21 06:15 | NUR ---
SPOKE TO VISUAL DEVELOPER REGARDING NEED FOR COVID TEST. REPORTS DAYSHIFT VISUAL DEVELOPER WILL HAVE TO DO.
--- NOTE | 2020-03-21 06:56 | NUR ---
REPORT GIVEN TO DAYSHIFT NURSE. ALERT AND RESTING IN BED. NO SIGNS IV INFILTRATION. BED LOCKED AND IN LOW POSITION. CALL LIGHT WITHIN REACH. BED ALARM ACTIVATED.
[2020-03-21] MEDS: ASCORBIC ACID 500 MG TAB PO SCH ×2 (09:00→16:29)
[2020-03-21] MEDS: ARTIFICIAL TEARS (OPTH) 15 ML BTL OU SCH ×2 (09:09→16:29)
[2020-03-21] MEDS: ZINC SULFATE 220 MG CAP PO SCH ×2 (09:09→16:29)
[2020-03-21] MEDS: ENOXAPARIN SOD INJ 40 MG/0.4 ML SYR SC SCH ×2 (09:09→21:38)
[2020-03-21] MEDS: DOCUSATE SODIUM LIQD 100 MG/10 ML UDC NG SCH ×2 (09:09→16:29)
[2020-03-21] MEDS: CHOLECALCIFEROL 400 UNIT TAB NG SCH (09:09)
[2020-03-21] MEDS: FAMOTIDINE 20 MG/2 ML VIAL IV SCH ×2 (09:09→16:29)
--- NOTE | 2020-03-21 10:00 | NUR ---
FAXED MBS, PT NOTES AND PENDING COVID FORM TO [facility] FOR UPDATES FOR INSURANCE APPROVAL. STILL PENDING AUTH.
--- NOTE | 2020-03-21 13:07 | Progress Note ---
DATE: 03/21/2020 SUBJECTIVE: The patient is supine. States "I feel great." She denies any pain or shortness of breath at present. Does have occasional cough. No nausea or vomiting. She had two bowel movements yesterday. OBJECTIVE: VITAL SIGNS: Temperature 98.8, heart rate 80, blood pressure 145/63, respirations 18, and oxygen saturation 92%. GENERAL: Supine. Not prone. LUNGS: Overall clear to auscultation. Oxygen at 3 L/minute via nasal cannula with oxygen saturation 93% at time of encounter. HEENT: EOMI. Left naris NG tube with Vital AF at 45 mL an hour, tolerating well. NECK: Supple. No JVD. CARDIOVASCULAR: Regular rate and rhythm without murmur. Protonix drip at 10 mL an hour. ABDOMEN: Bowel sounds positive. Soft, nontender. No guarding. Ballesteros catheter with nahum urine. EXTREMITIES: Without pitting edema. No clubbing, cyanosis, or signs of DVT. NEUROLOGICAL: GCS 15. Nonfocal. LABORATORY DATA: WBCs 9.63, hemoglobin 10.1, hematocrit 31.9, and platelets 281. Sodium 138, potassium 3.7, chloride 102, CO2 of 28, anion gap 11.7, BUN 16, creatinine 0.55, estimated GFR greater than 60, glucose 114, and calcium 8.7. Coronavirus PCR collected 03/20 remains pending. No new imaging results. The patient failed her modified barium swallow yesterday. ASSESSMENT AND PLAN: 1. Coronavirus disease-19 pneumonia with acute respiratory distress syndrome. Currently remains off antibiotics. Continue Lovenox, Decadron, zinc, vitamin C, and vitamin D. 2. Uncontrolled hypertension. Blood pressure 145/63. Cardiology following. Continue p.r.n. IV hydralazine. 3. Transaminitis, improved. LFTs are better. AST 21, ALT 53, and alkaline phosphatase 73. 4. Generalized weakness. PT eval and treat. 5. Urinary retention. Ballesteros catheter remains in place. Urology following. 6. Prophylaxis. Lovenox and Protonix. Billing code [id number]. Time spent 35 minutes. Dictated by Ryan Murillo NP Félix Stone MD [facility]/MODL /[id number]
[2020-03-21] MEDS: DEXAMETHASONE SOD PHOS INJ 4 MG/ML VIAL IV SCH (13:36)
--- NOTE | 2020-03-21 14:11 | NUR ---
infectious disease progress note patient seen and examined chart reviewed. Although we did review with medication was reviewed and discussed internal medicine physical examination basically unchanged he patient is supine. States "I feel great." She denies any pain or shortness of breath at present. Does have occasional cough. No nausea or vomiting. She had two bowel movements yesterday. OBJECTIVE: VITAL SIGNS: Temperature 98.8, heart rate 80, blood pressure 145/63, respirations 18, and oxygen saturation 92%. GENERAL: Supine. Not prone. LUNGS: Overall clear to auscultation. Oxygen at 3 L/minute via nasal cannula with oxygen saturation 93% at time of encounter. HEENT: EOMI. Left naris NG tube with Vital AF at 45 mL an hour, tolerating well. NECK: Supple. No JVD. CARDIOVASCULAR: Regular rate and rhythm without murmur. Protonix drip at 10 mL an hour. ABDOMEN: Bowel sounds positive. Soft, nontender. No guarding. Ballesteros catheter with nahum urine. EXTREMITIES: Without pitting edema. No clubbing, cyanosis, or signs of DVT. NEUROLOGICAL: GCS 15. Nonfocal. LABORATORY DATA: WBCs 9.63, hemoglobin 10.1, hematocrit 31.9, and platelets 281. Sodium 138, potassium 3.7, chloride 102, CO2 of 28, anion gap 11.7, BUN 16, creatinine 0.55, estimated GFR greater than 60, glucose 114, and calcium 8.7. Coronavirus PCR collected 03/20 remains pending. No new imaging results. The patient failed her modified barium swallow yesterday. ASSESSMENT AND PLAN: 1. Coronavirus disease-19 pneumonia with acute respiratory distress syndrome. Currently remains off antibiotics. Continue Lovenox, Decadron, zinc, vitamin C, and vitamin D. 2. Uncontrolled hypertension. Blood pressure 145/63. Cardiology following. Continue p.r.n. IV hydralazine. 3. Transaminitis, improved. LFTs are better. AST 21, ALT 53, and alkaline phosphatase 73. 4. Generalized weakness. PT eval and treat. 5. Urinary retention. Ballesteros catheter remains in place. Urology following. 6. Prophylaxis. Lovenox and Protonix.
--- NOTE | 2020-03-21 16:04 | NUR ---
Nutrition Intervention Note RD Recommendation(s) for Physician: - Pt is no longer in the ICU. Recommend modifying tube feeding to Jevity 1.2 @ goal rate of 55 mL/hr (provides 1584 kcal, 73 g protein) -When pt is safe for po intake , recommend 2 gm Na diet with texture per speech therapy Plan of Care: RD following, monitoring for tolerance and adequacy, tube feed recommendation Nutrition reason for involvement: follow up RD Assessment 03/21: Follow up. Chart reviewed. Pt is no longer in the ICU and is now on nasal cannula. Speech therapy evaluated pt and recommended pt remain NPO since pt is not safe for PO intake at this time. Recommendations provided. Will continue to monitor. 03/16: Follow up. Chart reviewed. RD called pt's nurse over the phone. RN stated pts tube feeding is on hold since pt was just extubated. Will continue to monitor. 03/13: Follow up. Pt remains intubated, TF held for SBT- noted total of 160 ml TF given yesterday. Pt remains sedated on Propofol. TF and diet rec's provided pending outcome of SBT. Chart reviewed. Will continue to monitor. (03/09/20) Pt is a 59 year old female admitted with hypoxia and pneumonia due to COVID-19. Pt is currently intubated and sedated. Tube feedings were ordered yesterday. There are no previous weights in chart. Recommendations provided. Will continue to monitor. Principal Problems/Diagnoses: hypoxia, pneumonia due to COVID-19. PMH: Hypertension GI: soft, non-tender, round abdomen, last recorded BM 03/21 Skin: intact Labs: 03/21: Na 138, K 3.7, BUN 16, Cr 0.55, Glu 114 03/16: Na 135, K 3.9, BUN 18, Cr 0.46, Glu 116 03/13: Na 140, K 3.9, BUN 20, Cr 0.84, Gluc 185, Mg 2.3 (03/09/20) Na 145, BUN 27, Glu 165, Ca 8.0, AST 50 Meds: pantoprazole, vitamin D, colace, zinc sulfate, reglan, dexmethasone, zofran, vitamin C Ht: 63 inches Wt: 147 lbs (03/21) 170 lbs (03/16) 169 lb (03/13), 161 lbs (03/07) - Suspect possible weight error BMI: 28.5 kg/m2 (using wt of 161 lbs) IBW: 115 lbs Malnutrition Evaluation (03/09/20) Unable to assess. Will re-evaluate at follow-up as appropriate. Nutrition Prescription (Diet Order): Vital AF @ 60 mL/hr - TF infusing at 45 mL/hr per MD note (provides 1296 kcal, 81 g protein) Estimated Nutritional Needs: 9193-9089 calories/day (18-20 kcal/kg CBW) Weight used 161 lbs 73-110 g protein/day (1-1.5 g pro/kg CBW) Weight used: 161 lbs Diet Adequacy: Not meeting calorie needs, meeting protein needs Tolerance: tolerating TF Diet Education Needs Assessment: Diet education not indicated Nutrition Care Level: moderate Nutrition Diagnosis: Swallowing difficulty related to oral dysphagia as evidenced by pt requiring enteral nutrition. Goal: Patient will meet 75-100% of estimated needs by follow up Progress: progressing Interventions: - Composition, Rate, Route, Recommended Modifications Monitoring/Evaluation: -Total energy intake, Total protein intake, Formula/Solution, Weight change Signed: Talia Hayward RD, LD
--- NOTE | 2020-03-21 20:00 | NUR ---
pt received. no ss of distress noted. tele in place. 02 nc noted. ngt with tube feed in place. will cont to follow poc. call willett within reach.
[2020-03-21] MEDS: HYDRALAZINE HCL 20 MG/ML VIAL IV PRN (21:38)
[2020-03-22] VITALS (8 sets, daily range): BP systolic 128–164; BP diastolic 60–82
[2020-03-22] MEDS: METOCLOPRAMIDE HCL 10 MG/2ML VIAL IV SCH ×5 (00:22→23:51)
[2020-03-22] MEDS: PANTOPRAZOL 40MG/SOD CHL 0.9% 50 ML IV SCH ×5 (00:38→22:30)
--- NOTE | 2020-03-22 00:43 | NUR ---
bm noted. pt cleaned and repositioned. no ss of distress noted. call willett within reach. Addendum: 03/22/20 at 0245 by So Lau RN 0cc residual noted via ngt tube.
--- NOTE | 2020-03-22 04:36 | NUR ---
sm smear bm noted. pt cleaned berna/chicas care provided, and turned. no distress noted. call willett within reach.
--- NOTE | 2020-03-22 05:43 | NUR ---
residual 0cc. pt tolerating feed well and increased rate to 60cc per orders. no distress noted. call willett within reach.
--- NOTE | 2020-03-22 07:02 | NUR ---
CHANGE OF SHIFT REPORT RECEIVED FROM PM NURSE. PT IN STABLE CONDITION.
[2020-03-22] MEDS: DOCUSATE SODIUM LIQD 100 MG/10 ML UDC NG SCH ×2 (09:00→17:00)
--- NOTE | 2020-03-22 09:17 | NUR ---
FAXED UPDATES TO [facility]
[2020-03-22] MEDS: FAMOTIDINE 20 MG/2 ML VIAL IV SCH ×2 (09:22→17:33)
[2020-03-22] MEDS: ARTIFICIAL TEARS (OPTH) 15 ML BTL OU SCH ×2 (09:23→17:34)
[2020-03-22] MEDS: CHOLECALCIFEROL 400 UNIT TAB NG SCH (09:23)
[2020-03-22] MEDS: ENOXAPARIN SOD INJ 40 MG/0.4 ML SYR SC SCH ×2 (09:23→21:18)
[2020-03-22] MEDS: ASCORBIC ACID 500 MG TAB PO SCH ×2 (09:23→17:34)
[2020-03-22] MEDS: ZINC SULFATE 220 MG CAP PO SCH ×2 (09:23→17:34)
--- NOTE | 2020-03-22 11:34 | NUR ---
DENIAL FROM [facility] FOR [facility] EVAL CHOICE LETTER FROM MARITA CANTOR AT [facility] NOTIFIED OF EVAL CLINICALS FAXED TO [phone] CONFIRMATION REC'D
--- NOTE | 2020-03-22 11:50 | NUR ---
CALLED AND SPOKE WITH HENNA MORRISON [phone] LET HER KNOW ABOUT DENIAL AND ALSO THAT WOULD BE STARTING TO SEE ABOUT APPROVAL FOR [employer] AND SHE STATES THAT IS OKAY, WOULD LIKE TO STAY IN AREA.
--- NOTE | 2020-03-22 15:01 | NUR ---
pt noted to have thrush in mouth; paged Dr. Stone's PREPARATORY TECHNICIAN. new orders received.
--- NOTE | 2020-03-22 19:01 | NUR ---
CHANGE OF SHIFT REPORT GIVEN TO DISTRICT MANAGER PRIMARY CARE SALES RN. PT AWAKE, ALERT, ORIENTED X3, TALKING TO ON PHONE, NO COMPLAINTS AT THIS TIME. NO S/S OF DISTRESS. PT IN STABLE CONDITION.
--- NOTE | 2020-03-22 19:15 | Progress Note ---
DATE: SUBJECTIVE: She is still weak. She still cannot swallow. She failed swallow eval. There is no new complaint. Her . PHYSICAL EXAMINATION: GENERAL: Currently alert, oriented. VITAL SIGNS: Stable, afebrile. HEENT: She is not icteric. NECK: Supple. CHEST: Clear. ABDOMEN: Soft. IMPRESSION: This is day #16 from admission. The patient is extremely weak. She could be discharged to rehab place or skilled care with physical therapy depending on her clinical condition. No antibiotic at present time. Further recommendations to follow. MD MARJAN Rapp/SHELLIE /[id number]
--- NOTE | 2020-03-22 19:26 | Progress Note ---
DATE: The patient is now using less oxygen. She is receiving physical therapy, though she is still weak. PHYSICAL EXAMINATION: VITAL SIGNS: Blood pressure is 128/82, saturation is 100% on 2 L. HEENT: Shows no facial swelling or erythema. CARDIAC: Reveals regular rate and rhythm with normal S1 and S2. LUNGS: Auscultation of lungs reveals rhonchorous breath sounds bilaterally. There is no wheezing. ABDOMEN: Soft, nontender. There is no rebound or guarding. EXTREMITIES: Examination of extremities shows no leg edema or calf tenderness. There is no cyanosis or clubbing. SKIN: Shows no rashes. NEUROLOGICAL: Shows no focal abnormalities. IMPRESSION: 1. Acute respiratory failure. 2. Viral pneumonia and COVID-19 infection. 3. Anemia. 4. Urinary retention. 5. Oropharyngeal dysphagia. PLAN: 1. long term evaluation. 2. Continue physical therapy. 3. Wean oxygen. 4. Continue enteral feedings until cleared by Speech Therapy. Brandon Avitia MD [facility]/MODL /[id number]
--- NOTE | 2020-03-22 20:00 | NUR ---
Resumed care of patient. Patient awake and sitting up in bed, respirations even and unlabored, no s/s of distress at this time. Currently talking via phone to family visiting outside window. Left NGT in place with tube feeding running at 60 ml/hr. Ballesteros catheter patent and draining to gravity, bag hung below bladder. Bed locked and in lowest position, side rails upx3, alarm on, call light placed within reach. All safety measures in place. Will continue to monitor.
[2020-03-22] MEDS: NYSTATIN SUSPENSION 5 ML UDC PO SCH (21:18)
[2020-03-22] MEDS: HYDRALAZINE HCL 20 MG/ML VIAL IV PRN (21:19)
[2020-03-23] VITALS (11 sets, daily range): BP systolic 124–150; BP diastolic 60–89
--- NOTE | 2020-03-23 02:02 | NUR ---
Dr. Edaurdo Torres here to see patient. Received orders to DC Protonix drip and start patient on 40 mg Protonix IV push BID.
[2020-03-23] MEDS: METOCLOPRAMIDE HCL 10 MG/2ML VIAL IV SCH ×3 (05:10→18:03)
--- NOTE | 2020-03-23 06:03 | NUR ---
Patient resting in bed, respirations even and unlabored on 1L NC, no s/s of distress at this time. All safety measures in place.
[2020-03-23 07:52] LABS: BASOPHILS % 0.2 % (0.0-1.0); EOSINOPHILS # (AUTO) 0.2 (0.0-0.4); EOSINOPHILS % 2.7 % (0.0-6.0); HEMATOCRIT 32.6 % (34.2-44.1); HEMOGLOBIN 10.6 g/dL (12.0-16.0); LYMPHOCYTES # (AUTO) 1.4 (1.0-3.2); LYMPHOCYTES % 15.1 % (18.0-39.1); MEAN CORPUSCULAR HEMOGLOBIN 29.6 pg (28-32); MEAN CORPUSCULAR HGB CONC 32.5 g/dL (31-35); MEAN CORPUSCULAR VOLUME 91.1 fL (81-99); MONOCYTES # (AUTO) 0.7 (0.2-0.8); NEUTROPHILS # (AUTO) 6.6 (2.1-6.9); NEUTROPHILS % 73.1 % (38.7-80.0); PLATELET COUNT 264 x10e3/uL (140-360); RED BLOOD COUNT 3.58 x10e6/uL (3.6-5.1); RED CELL DISTRIBUTION WIDTH 13.4 % (11.7-14.4)
[2020-03-23 08:14] LABS: ALANINE AMINOTRANSFERASE 37 IU/L (0-55); ALBUMIN 2.9 g/dL (3.5-5.0); ALBUMIN/GLOBULIN RATIO 0.8 (0.8-2.0); ALKALINE PHOSPHATASE 68 IU/L (40-150); BLOOD UREA NITROGEN 16 mg/dL (7-26); BUN/CREATININE RATIO 33 (6-25); CARBON DIOXIDE 26 mmol/L (22-29); CHLORIDE 102 mmol/L (98-107); CREATININE, SERUM 0.49 mg/dL (0.57-1.11); EST GLOMERULAR FILTRATION RATE > 60 ML/MIN (60-); GLUCOSE 125 mg/dL (74-118); PHOSPHORUS 3.2 MG/DL (2.3-4.7); SODIUM 139 mmol/L (136-145)
[2020-03-23] MEDS: PANTOPRAZOLE 40 MG 10ML VIAL IV SCH ×2 (08:45→17:01)
[2020-03-23] MEDS: FAMOTIDINE 20 MG/2 ML VIAL IV SCH ×2 (08:45→17:01)
[2020-03-23] MEDS: ARTIFICIAL TEARS (OPTH) 15 ML BTL OU SCH ×2 (08:46→17:00)
[2020-03-23] MEDS: ZINC SULFATE 220 MG CAP PO SCH ×2 (08:46→17:01)
[2020-03-23] MEDS: ASCORBIC ACID 500 MG TAB PO SCH ×2 (08:46→17:01)
[2020-03-23] MEDS: CHOLECALCIFEROL 400 UNIT TAB NG SCH (08:46)
[2020-03-23] MEDS: ENOXAPARIN SOD INJ 40 MG/0.4 ML SYR SC SCH (08:46)
[2020-03-23] MEDS: NYSTATIN SUSPENSION 5 ML UDC PO SCH ×3 (08:46→21:42)
[2020-03-23] MEDS: DOCUSATE SODIUM LIQD 100 MG/10 ML UDC NG SCH ×2 (08:46→17:01)
--- NOTE | 2020-03-23 14:44 | Progress Note ---
DATE: SUBJECTIVE: The patient still cannot swallow independently. She has a feeding tube in place. She has electrical stimulation to try and improve her swallowing function. She has no facial swelling or erythema. PHYSICAL EXAMINATION: VITAL SIGNS: Stable. The patient is afebrile. The saturation is 94% on 1 L and the blood pressure is 167/70, pulse is 86. HEENT: Shows no facial swelling or erythema. CARDIAC: Reveals regular rate and rhythm with normal S1 and S2. LUNGS: Auscultation of lungs reveals rhonchorous breath sounds bilaterally. There is no wheezing. ABDOMEN: Soft and nontender. There is no rebound or guarding. EXTREMITIES: Shows no leg edema or calf tenderness. There is no cyanosis or clubbing. SKIN: Shows no rashes. NEUROLOGICAL: Shows no focal abnormalities. LABORATORY DATA: BUN to creatinine ratio is 16 to 0.49. The other electrolytes within normal limits. Albumin is 2.9. White blood cell count is 9 and hemoglobin is 10.6. The platelet count is 264. IMPRESSION: 1. Acute respiratory failure. 2. Viral pneumonia and COVID-19 infection. 3. Anemia. 4. Oropharyngeal dysphagia. PLAN: 1. Continue speech therapy. 2. Continue enteral feedings. 3. Physical therapy. 4. Wean oxygen. 5. Arrange for disposition. Brandon Avitia MD [facility]/MODL /[id number]
--- NOTE | 2020-03-23 18:15 | Progress Note ---
DATE: SUBJECTIVE: Ms. Gooden is doing well. She remains weak. There are no new complaints. PHYSICAL EXAMINATION: GENERAL: She is currently alert, oriented. VITAL SIGNS: Stable, currently afebrile. HEENT: She is not icteric. NECK: Supple. CHEST: Clear. HEART: S1-S2. No murmurs. ABDOMEN: Soft. Bowel sounds present. EXTREMITIES: No edema. SKIN: No rash. IMPRESSION AND PLAN: Coronavirus disease-19, this is day #17. The patient needs to be in isolation for a total of 4 weeks since the onset of symptoms. Continue PT, OT, could be discharged to skilled care facility as ordered and discussed with the medical team. Answered all the questions. MD MARJAN Rapp/SHELLIE /[id number]
--- NOTE | 2020-03-23 19:00 | NUR ---
Resumed care of patient. Patient awake and sitting up in bed, talking via phone to family visiting outside window. Respirations even and unlabored on 1L NC, vital signs stable, no s/s of distress at this time. Left NGT in place with tube feeding at 60 ml/hr. Ballesteros catheter patent and draining to gravity, bag hung below bladder. Bed locked and in lowest position, side rails upx3, call light and belongings placed within reach. Patient instructed to call for assistance if needed, verbalized understanding. All safety measures in place. Will continue to monitor.
--- NOTE | 2020-03-23 19:06 | Progress Note ---
DATE: 03/23/2020 SUBJECTIVE: The patient is lying supine in bed. Speech therapist is in the room and patient is receiving neuromuscular electrical stimulation in an effort to improve her swallowing. Per speech therapy, the patient can continue with NMES for one week before repeating the modified barium swallow. The patient does have a sore throat. Denies cough, nausea, vomiting, or diarrhea. Her thrush seems to be improving. OBJECTIVE: VITAL SIGNS: Temperature 98.0, heart rate 86, blood pressure 147/60, respirations 20, oxygen saturation 94%. GENERAL: No acute distress, supine, not prone. LUNGS: Clear. Oxygen at 1 L/minute via nasal cannula with oxygen saturation 94% during encounter. HEENT: EOMI. Left nare NG tube with Vital AF at 60 mL an hour, tolerating well. NECK: Supple. No JVD. CARDIOVASCULAR: Regular rate and rhythm. No murmur. ABDOMEN: Bowel sounds positive. Soft, nontender. No guarding. Ballesteros catheter with nahum urine. EXTREMITIES: No pitting edema. No clubbing, cyanosis, or signs of DVT. NEUROLOGIC: GCS 15, nonfocal. LABORATORY DATA: WBCs 9.05, hemoglobin 10.6, hematocrit 32.6, platelets 264. Sodium 139, potassium 4.0, chloride 102, CO2 is 26, BUN 16, creatinine 0.49, estimated GFR greater than 60, glucose 125, calcium 9.0, phosphorus 3.2, magnesium 2.0, total bilirubin 0.5, AST 19, ALT 37, alkaline phosphatase 68, total protein 6.7, albumin 2.9. The patient failed her modified barium swallow, which was done on 03/20/2020. ASSESSMENT AND PLAN: 1. COVID-19 pneumonia, status post acute respiratory distress syndrome. She remains off antibiotics. Continue Decadron, Lovenox, vitamin C, vitamin D. 2. Dysphagia. Continue tube feeds via NG tube. Continue with neuromuscular electrical stimulation by speech therapy. Repeat modified barium swallow after one week. 3. Uncontrolled hypertension. Blood pressure initially 127/65. Cardiology following. Continue p.r.n. IV hydralazine. 4. Transaminitis, improved. Total bilirubin 0.7, AST 21, ALT 53, and alkaline phosphatase 73 on 03/20/2020. 5. Generalized weakness. Physical therapy following. 6. Urinary retention. Urology following. Ballesteros catheter remained in place. 7. Prophylaxis. Lovenox and Protonix. Billing code 31115. Time spent 35 minutes. Dictated by Ryan Murillo, SIDE FRAMER MD SYLWIA Deras/MODL /[id number]
--- NOTE | 2020-03-23 20:01 | Progress Note ---
DATE: SUBJECTIVE: The patient is lying supine in bed. She has been using less oxygen, receiving physical therapy, but still weak, and also participating with speech therapy. OBJECTIVE: VITAL SIGNS: Temperature 98.0, heart rate 86, blood pressure 147/60, respirations 20, and oxygen saturation 94%. GENERAL: Supine, no acute distress. LUNGS: Clear to auscultation. Respiratory pattern even unlabored. Currently on oxygen at 1 L/minute via nasal cannula with good oxygen saturation 94% at the time of encounter. HEENT: EOMI. Left nare NG tube with Vital AF tube feeds. NECK: Supple. No JVD. CARDIOVASCULAR: Regular rate and rhythm without murmur. Protonix drip at 10 mL an hour. ABDOMEN: Bowel sounds positive. Soft, nontender. No guarding. Ballesteros catheter with nahum urine. EXTREMITIES: With no pitting edema. No clubbing, cyanosis, or signs of DVT. NEUROLOGICAL: GCS 15. Nonfocal. LABORATORY DATA: No new labs today, lab holiday. No new microbiology results. No new imaging results. ASSESSMENT/PLAN: 1. COVID-19, status post acute respiratory distress syndrome. She remains off antibiotics. Continue Decadron, Lovenox, vitamin C, and vitamin D. 2. Uncontrolled hypertension. Blood pressure 147/60. Continue p.r.n. IV hydralazine. Cardiology following. 3. Transaminitis, improved. LFTs better. AST 21, ALT 53, and alkaline phosphatase 73. 4. Generalized weakness. Physical therapy evaluation and treat per PT note dated today. The patient progressing with increased activity tolerance, able to take steps with chair followed today 2 to 3 steps at a time, desaturations with gait mid to upper 80s, but improves with PLB. The patient asymptomatic. The patient will benefit from continued skilled physical therapy to improve strength, functional activity, and safety. 5. Urinary retention. Ballesteros catheter remains in place and Urology following. 6. Prophylaxis. Lovenox and Protonix. Billing code 62507. Time spent 35 minutes. Dictated by Ryan Murillo NP MD SONY DreasP/MODL /[id number]
[2020-03-24] VITALS (11 sets, daily range): BP systolic 124–179; BP diastolic 70–76
[2020-03-24] MEDS: METOCLOPRAMIDE HCL 10 MG/2ML VIAL IV SCH ×4 (00:15→17:46)
--- NOTE | 2020-03-24 02:33 | NUR ---
Dr. Eduardo Torres here to see patient, made aware that patient had 5 soft bowel movements today. Per MD continue to monitor at this time. No new orders received.
--- NOTE | 2020-03-24 06:20 | NUR ---
Patient resting quietly in bed, respirations even and unlabored, O2 94% on 1L NC. NGT feeding at 60 ml/hr. Ballesteros catheter patent and draining to gravity. All safety measures in place.
[2020-03-24] MEDS: DOCUSATE SODIUM LIQD 100 MG/10 ML UDC NG SCH ×2 (07:24→16:26)
[2020-03-24] MEDS: ARTIFICIAL TEARS (OPTH) 15 ML BTL OU SCH ×2 (07:24→16:25)
[2020-03-24] MEDS: CHOLECALCIFEROL 400 UNIT TAB NG SCH (08:13)
[2020-03-24] MEDS: ZINC SULFATE 220 MG CAP PO SCH ×2 (08:13→16:26)
[2020-03-24] MEDS: NYSTATIN SUSPENSION 5 ML UDC PO SCH ×3 (08:13→21:47)
[2020-03-24] MEDS: PANTOPRAZOLE 40 MG 10ML VIAL IV SCH ×2 (08:13→16:25)
[2020-03-24] MEDS: ASCORBIC ACID 500 MG TAB PO SCH ×2 (08:13→16:26)
[2020-03-24] MEDS: FAMOTIDINE 20 MG/2 ML VIAL IV SCH ×2 (08:13→16:25)
--- NOTE | 2020-03-24 12:46 | NUR ---
Spoke to Celia with [facility]. They do not have room available at this time, and may not until tomorrow. CM will give packet to HS in the event it does happen later today. Will follow up tomorrow.
--- NOTE | 2020-03-24 17:48 | NUR ---
MARILYNID NEGATIVE RESULTS. TRANSFERRED TO FLOOR ROOM 205 AFTER REPORT GIVEN TO CAROLINE. PATIENT FAMILY NOTIFIED OF TRANSFER. Addendum: 03/24/20 at 1839 by DEEJAY MCDONALD RN wrong chart
--- NOTE | 2020-03-24 19:20 | NUR ---
BEDSIDE SHIFT REPORT RECEIVED RN. PT IS ALERT AND ORIENTED X3. RESPIRATIONS ARE EVEN AND UNLABORED. TELE ON - SR O2 SAT ON 1L PER N/C ON -98%. LUNGS CLEAR. NO COUGH. HOB IS ELEVATED. N/G FEEDING--VITAL AF 1.2 INFUSING ON FEEDING PUMP AT 60 ML PER HR. BOWEL SOUNDS PRESENT. LANDA TO GRAVITY. NESTOR TL PICC SL. SITE HEALTHY AND DRESSING DRY AND INTACT. PT DENIES PAIN. CALL LIGHT WITHIN REACH. BED IN LOW POSITION. PT TALKING WITH FAMILY ON HER PHONE IN ROOM.
[2020-03-24] MEDS ORDERED: LIDOCAINE HCL 2% LOCAL 20 ML VIAL ONE (22:04)
[2020-03-25] VITALS (11 sets, daily range): BP systolic 128–164; BP diastolic 55–83
--- NOTE | 2020-03-25 05:31 | Progress Note ---
DATE: 03/24/2020 SUBJECTIVE: Ms. Mojica is doing well. She is weak. There is no new complaint. REVIEW OF SYSTEMS: There is nothing new today. PHYSICAL EXAMINATION: GENERAL: Currently alert, oriented. VITAL SIGNS: Stable, afebrile. HEENT: He is not icteric. NECK: Supple. CHEST: Clear. Heart: S1 and S2. ABDOMEN: Soft. IMPRESSION AND PLAN: Coronavirus disease 2019 associated debility. The patient is going to be transferred to skilled care facility. Continue supportive care as ordered. Discussed with medical team. There is no new recommendation at the present time. MD MARJAN Rapp/SHELLIE /[id number]
[2020-03-25 06:02] LABS: BASOPHILS % 0.3 % (0.0-1.0); EOSINOPHILS # (AUTO) 0.4 (0.0-0.4); EOSINOPHILS % 4.1 % (0.0-6.0); HEMATOCRIT 34.3 % (34.2-44.1); HEMOGLOBIN 11.1 g/dL (12.0-16.0); LYMPHOCYTES # (AUTO) 1.3 (1.0-3.2); LYMPHOCYTES % 13.4 % (18.0-39.1); MEAN CORPUSCULAR HEMOGLOBIN 29.6 pg (28-32); MEAN CORPUSCULAR HGB CONC 32.4 g/dL (31-35); MEAN CORPUSCULAR VOLUME 91.5 fL (81-99); MONOCYTES # (AUTO) 0.7 (0.2-0.8); MONOCYTES % 7.7 % (4.4-11.3); NEUTROPHILS # (AUTO) 6.9 (2.1-6.9); NEUTROPHILS % 73.3 % (38.7-80.0); PLATELET COUNT 232 x10e3/uL (140-360); RED BLOOD COUNT 3.75 x10e6/uL (3.6-5.1); RED CELL DISTRIBUTION WIDTH 13.6 % (11.7-14.4)
[2020-03-25 06:17] LABS: ANION GAP 12.6 mmol/L (8-16); BLOOD UREA NITROGEN 17 mg/dL (7-26); BUN/CREATININE RATIO 33 (6-25); CALCIUM 9.1 mg/dL (8.4-10.2); CARBON DIOXIDE 27 mmol/L (22-29); CHLORIDE 101 mmol/L (98-107); CREATININE, SERUM 0.52 mg/dL (0.57-1.11); EST GLOMERULAR FILTRATION RATE > 60 ML/MIN (60-); GLUCOSE 116 mg/dL (74-118); POTASSIUM 4.6 mmol/L (3.5-5.1); SODIUM 136 mmol/L (136-145)
[2020-03-25] MEDS: METOCLOPRAMIDE HCL 10 MG/2ML VIAL IV SCH ×4 (06:25→18:00)
--- NOTE | 2020-03-25 08:26 | NUR ---
Notified liaisonCelia with [facility] that the patient has been downgraded to Med-Surg Tele. Still awaiting bed at [facility].
[2020-03-25] MEDS: CHOLECALCIFEROL 400 UNIT TAB NG SCH (09:33)
[2020-03-25] MEDS: ASCORBIC ACID 500 MG TAB PO SCH ×2 (09:33→16:09)
[2020-03-25] MEDS: DOCUSATE SODIUM LIQD 100 MG/10 ML UDC NG SCH ×2 (09:33→16:10)
[2020-03-25] MEDS: PANTOPRAZOLE 40 MG 10ML VIAL IV SCH ×2 (09:33→16:09)
[2020-03-25] MEDS: FAMOTIDINE 20 MG/2 ML VIAL IV SCH ×2 (09:33→16:09)
[2020-03-25] MEDS: ZINC SULFATE 220 MG CAP PO SCH ×2 (09:33→16:10)
[2020-03-25] MEDS: NYSTATIN SUSPENSION 5 ML UDC PO SCH ×3 (09:33→21:23)
[2020-03-25] MEDS: ARTIFICIAL TEARS (OPTH) 15 ML BTL OU SCH ×2 (09:33→16:09)
--- NOTE | 2020-03-25 10:45 | NUR ---
DEVAUGHN, LIAISON WITH [facility] STATED THERE ARE STILL NO AVAILABLE BEDS.
--- NOTE | 2020-03-25 19:28 | NUR ---
BEDSIDE SHIFT REPORT RECEIVED FROM DAY RN. PT IS ALERT AND ORIENTED X3. TELE ON. RESPIRATIONS ARE EVEN AND UNLABORED.VITAL HF 1.2 INFUSING VIA N/G TUBE AT 60 ML/HR. PT DENIES PAIN. RT UPPER ARM TL PICC. LANDA CATHETER TO GRAVITY- URINE IS CLEAR YELLOW IN COLOR.HOB IS ELEVATED. PT TOLERATING TF WELL. FAMILY AT WINDOW OF ROOM TALKING WITH FAMILY ON PHONE. CALL LIGHT WITHIN REACH. BED IN LOW POSITION.
[2020-03-26] VITALS (7 sets, daily range): BP systolic 130–156; BP diastolic 61–84
[2020-03-26] MEDS: METOCLOPRAMIDE HCL 10 MG/2ML VIAL IV SCH ×4 (00:29→17:53)
[2020-03-26] MEDS: FAMOTIDINE 20 MG/2 ML VIAL IV SCH ×2 (07:46→17:30)
[2020-03-26] MEDS: ASCORBIC ACID 500 MG TAB PO SCH ×2 (08:28→17:31)
[2020-03-26] MEDS: DOCUSATE SODIUM LIQD 100 MG/10 ML UDC NG SCH ×2 (08:28→17:00)
[2020-03-26] MEDS: NYSTATIN SUSPENSION 5 ML UDC PO SCH ×2 (08:28→16:22)
[2020-03-26] MEDS: CHOLECALCIFEROL 400 UNIT TAB NG SCH (08:28)
[2020-03-26] MEDS: ZINC SULFATE 220 MG CAP PO SCH ×2 (08:28→17:31)
[2020-03-26] MEDS: ARTIFICIAL TEARS (OPTH) 15 ML BTL OU SCH ×2 (08:29→17:31)
[2020-03-26] MEDS: PANTOPRAZOLE 40 MG 10ML VIAL IV SCH ×2 (08:31→17:16)
--- NOTE | 2020-03-26 12:20 | NUR ---
UPDATED CLINICALS FAXED TO DEVAUGHN ORTIZ. DEVAUGHN STATES SHE HAS A PT TO DC HOME AND WILL SEND MOT ONCE AVAILABLE. DISCUSSED PT IN MDR. PT TO TRANSFER TO [facility] TODAY ONCE BED IS AVAILABLE.
--- NOTE | 2020-03-26 13:20 | NUR ---
Patient up in bd, on Tube feeding 60cc/hr, on O2 2l NC, Not in any distress, call light in reach
--- NOTE | 2020-03-26 13:55 | NUR ---
nish Mojica is doing well. She is weak. There is no new complaint. REVIEW OF SYSTEMS: There is nothing new today. PHYSICAL EXAMINATION: GENERAL: Currently alert, oriented. VITAL SIGNS: Stable, afebrile. HEENT: He is not icteric. NECK: Supple. CHEST: Clear. Heart: S1 and S2. ABDOMEN: Soft. IMPRESSION AND PLAN: Coronavirus disease 2019 associated debility. The patient is going to be transferred to skilled care facility. Continue supportive care as ordered. Discussed with medical team. There is no new recommendation at the present time. [id number]
--- NOTE | 2020-03-26 15:37 | NUR ---
LONG-TERM ACUTE CARE DISCHARGE INFORMATION PATIENT HAS BEEN ACCEPTED TO: NAME: DIANA ADDRESS: [address] [place] [address], [id number] ACCEPTING COMPANY DRIVER: ADM MÓNICA ACCEPTING MD: Jeffrey ORTEGA ROOM: 502 NURSE CALL REPORT TO: [phone] THE FOLLOWING DOCUMENTS MUST ACCOMPANY PATIENT FOR TRANSFER: COPIED CHART: [facility] INFO RECEIVED FROM: DEVAUGHN / [facility] ORDER/RECONCILED MED LIST: LANCE PAEZ [id number] DNR: N/A Addendum: 03/26/20 at 1541 by Tamra Novoa CM PLEASE ARRANGE TRANSPORTATION AFTER 7PM
--- NOTE | 2020-03-26 16:24 | NUR ---
Nutrition Intervention Note RD Recommendation(s) for Physician: - Recommend modifying tube feeding to Jevity 1.2 @ goal rate of 55 mL/hr (provides 1584 kcal, 73 g protein) -When pt is safe for po intake , recommend 2 gm Na diet with texture per speech therapy Plan of Care: RD following, monitoring for tolerance and adequacy, tube feed recommendation Nutrition reason for involvement: follow up RD Assessment 03/26: Follow up. Chart reviewed. Pt is awaiting placement to a skilled care facility per chart. TF is at 60 mL/hr per chart. Current recommendations remain appropriate. Will continue to monitor 03/21: Follow up. Chart reviewed. Pt is no longer in the ICU and is now on nasal cannula. Speech therapy evaluated pt and recommended pt remain NPO since pt is not safe for PO intake at this time. Recommendations provided. Will continue to monitor. 03/16: Follow up. Chart reviewed. RD called pt's nurse over the phone. RN stated pts tube feeding is on hold since pt was just extubated. Will continue to monitor. 03/13: Follow up. Pt remains intubated, TF held for SBT- noted total of 160 ml TF given yesterday. Pt remains sedated on Propofol. TF and diet rec's provided pending outcome of SBT. Chart reviewed. Will continue to monitor. (03/09/20) Pt is a 59 year old female admitted with hypoxia and pneumonia due to COVID-19. Pt is currently intubated and sedated. Tube feedings were ordered yesterday. There are no previous weights in chart. Recommendations provided. Will continue to monitor. Principal Problems/Diagnoses: hypoxia, pneumonia due to COVID-19. PMH: Hypertension GI: soft, non-tender, round abdomen, last recorded BM 03/25 Skin: stage 2 pressure ulcer buttock Labs: 03/26: Na 136, K 4.6, BUN 17, Cr 0.52, Glu 116, Ca 9.1 03/21: Na 138, K 3.7, BUN 16, Cr 0.55, Glu 114 03/16: Na 135, K 3.9, BUN 18, Cr 0.46, Glu 116 03/13: Na 140, K 3.9, BUN 20, Cr 0.84, Gluc 185, Mg 2.3 (03/09/20) Na 145, BUN 27, Glu 165, Ca 8.0, AST 50 Meds: reglan, protonix, vitamin D, colace, zinc sulfate, vitamin C, pepcid, zofran Ht: 63 inches Wt: 156 lbs (03/24) 147 lbs (03/21) 170 lbs (03/16) 169 lb (03/13), 161 lbs (03/07) BMI: 28.5 kg/m2 (using wt of 161 lbs) IBW: 115 lbs Malnutrition Evaluation (03/09/20) Unable to assess. Will re-evaluate at follow-up as appropriate. Nutrition Prescription (Diet Order): Vital AF @ 60 mL/hr (provides 1728 kcal, 108 g protein) Estimated Nutritional Needs: 1529-3639 calories/day (18-20 kcal/kg CBW) Weight used 161 lbs 73-110 g protein/day (1-1.5 g pro/kg CBW) Weight used: 161 lbs Diet Adequacy: meeting calorie needs, meeting protein needs Tolerance: tolerating TF Diet Education Needs Assessment: Diet education not indicated Nutrition Care Level: moderate Nutrition Diagnosis: Swallowing difficulty related to oral dysphagia as evidenced by pt requiring enteral nutrition. Goal: Patient will meet 75-100% of estimated needs by follow up Progress: goal met Interventions: - Composition, Rate, Route, Recommended Modifications Monitoring/Evaluation: -Total energy intake, Total protein intake, Formula/Solution, Weight change Signed: Talia Hayward RD, LD
--- NOTE | 2020-03-26 17:35 | NUR ---
report called to nurse Carlene in [facility], that patient going to Room 502
[2020-03-26] MEDS ORDERED: Cholecalciferol NG (18:30)
[2020-03-26] MEDS ORDERED: ONDANSETRON4 MG/2 M1 IV (18:30)
[2020-03-26] MEDS ORDERED: COLACE100 MG/10 NG (18:30)
[2020-03-26] MEDS ORDERED: FAMOTIDINE20 MG/2 ML IV (18:30)
[2020-03-26] MEDS ORDERED: ACETAMINOPHEN325 M1 PO (18:30)
[2020-03-26] MEDS ORDERED: PROTONIX IV40 MG IV (18:30)
[2020-03-26] MEDS ORDERED: Acetaminophen Supp PR (18:30)
[2020-03-26] MEDS ORDERED: Artificial Tears (Opth) OU (18:30)
[2020-03-26] MEDS ORDERED: HYDRALAZIN20 MG/1 ML IV (18:30)
[2020-03-26] MEDS ORDERED: METOCLOPRAMID5 MG/ML IV (18:30)
[2020-03-26] MEDS ORDERED: Sodium Chloride Flush INJ (18:30)
[2020-03-26] MEDS ORDERED: ASCORBIC ACID500 MG PO (18:30)
[2020-03-26] MEDS ORDERED: ZINC SULFATE220 M1 PO (18:30)
[2020-03-26] MEDS ORDERED: NYSTATIN100000 UNI PO (18:30)
--- NOTE | 2020-03-26 19:00 | NUR ---
Received patient awake, not in distress, call light within easy reach, off tube feedings, patient on NPO instructed, awaitng transfer to [facility], dayshift RN already called report, will continue to monitor patient
--- NOTE | 2020-03-26 19:35 | Progress Note ---
DATE: 03/24/2020 DATE OF SERVICE: March 24, 2020 CONSULTING PHYSICIANS: 1. Dr. Chula Schwab with Infectious Disease. 2. Dr. Heriberto Ramsay with Urology. 3. Dr. Brandon Avitia with Pulmonology, Critical Care Medicine. 4. Dr. Iain Avitia with Cardiology. 5. Dr. Bigg Torres with Gastroenterology. SUBJECTIVE: Per the nurse, the patient has been tolerating her tube feeding well. She is still having liquid stools. She had four on 03/23 and three today. She is getting neuromuscular electrical stimulation by speech therapy in an attempt to improve her swallowing. Oxygen saturation 96% to 98% on 2 L of oxygen via nasal cannula, requires 3 L/minute of oxygen during physical therapy. OBJECTIVE: VITAL SIGNS: Temperature 97.4, heart rate 79, blood pressure 141/72, respirations 18, and oxygen saturation 98%. GENERAL: Supine, no acute distress. LUNGS: Clear to auscultation. Respiratory pattern even unlabored. Currently on oxygen at 2 L/minute via nasal cannula with good oxygen saturation. HEENT: EOMI. Left nare NG tube with vital AF tube feeding at 60 mL an hour. NECK: Supple. No JVD. CARDIOVASCULAR: Regular rate and rhythm. No murmur. ABDOMEN: Bowel sounds positive. Soft, nontender. No guarding. Ballesteros catheter with nahum urine. EXTREMITIES: No pitting edema. No clubbing, cyanosis, or marked swelling. NEUROLOGICAL: GCS 15. Nonfocal. LABORATORY DATA: Fingerstick blood glucose levels 134, 125, 142. No new imaging results. Per telemetry, normal sinus rhythm with a heart rate of 81. ASSESSMENT AND PLAN: 1. COVID-19, status post acute respiratory distress syndrome. She remains off antibiotics. Decadron has been completed. Lovenox has been discontinued. Continue vitamin C and vitamin D as well as zinc sulfate. 2. Controlled hypertension. Blood pressure 141/72. Cardiology following. 3. Transaminitis, improved. LFTs now within normal limits. 4. Generalized weakness and debility. The patient is progressing with her activity tolerance, able to take steps of chair. 5. Urinary retention. Ballesteros catheter remains in place. Urology following. 6. Prophylaxis, Protonix. Billing code [id number]. Time spent 35 minutes. Dictated by Ryan Murillo NP MD SYLWIA Deras/SHELLIE /[id number]
--- NOTE | 2020-03-26 19:55 | Progress Note ---
DATE: 03/25/2020 DATE OF SERVICE: March 25, 2020 SUBJECTIVE: No diarrhea, but she is still having loose stools. Chief complaint is that her buttocks are sore. The patient saw her family through the window as they were standing outside waving to her. Overall, she has minimal complaints. OBJECTIVE: VITAL SIGNS: Temperature 97.7, heart rate 74, blood pressure 148/83, respirations 16, oxygen saturation 97%. GENERAL: Supine. Not prone. LUNGS: Clear to auscultation. Currently on oxygen at 2 L/minute via nasal cannula. HEENT: EOMI. Left nare NG tube with vital AF tube feedings at 60 mL an hour. NECK: Supple. No JVD. CARDIOVASCULAR: Regular rate and rhythm without murmur. ABDOMEN: Bowel sounds positive. Soft, nontender. No guarding. Ballesteros catheter with nahum urine. EXTREMITIES: No pitting edema. No clubbing, cyanosis, or signs of DVT. NEUROLOGIC: GCS 15. Nonfocal. LABORATORY DATA: WBC 9.38, hemoglobin 11.1, hematocrit 34.3, platelets 232. Sodium 136, potassium 4.6, chloride 101, CO2 of 27, anion gap 12.6, BUN 17, creatinine 0.52, estimated GFR greater than 60, glucose 116, calcium 9.1. No new imaging studies. Per telemetry, normal sinus rhythm with a heart rate of 88. ASSESSMENT AND PLAN: 1. COVID-19 status post acute respiratory distress syndrome. She remains off antibiotics. Continue zinc sulfate, vitamin C, and vitamin D. 2. Controlled hypertension. Blood pressure 148/83. Continue p.r.n. IV hydralazine. Cardiology following. 3. Debility with ambulatory dysfunction. Physical therapy continues to follow. The patient with increased activity tolerance. The patient will benefit from continued skilled physical therapy to improve strength, functional activity and safety. Discharge plan is still for the patient to go to [facility] on , 03/29/2020. 4. Urinary retention. Ballesteros catheter in place. Urology following. 5. Prophylaxis. Protonix and Pepcid. Billing code [id number]. Time spent 35 minutes. Dictated by Ryan Murillo NP Félix Stone MD [facility]/SHELLIE Donohue: 03/26/2020 18:55:36 /[id number]
--- NOTE | 2020-03-26 19:55 | Progress Note ---
DATE: SUBJECTIVE: The patient is still awaiting placement. She has no new complaints. She is still on 2 L. PHYSICAL EXAMINATION: VITAL SIGNS: Blood pressure is 132/63 and saturation is 99% on 2 L. HEENT: Shows no facial swelling or erythema. CARDIAC: Reveals regular rate and rhythm with normal S1 and S2. LUNGS: Auscultation of lungs reveals rhonchorous breath sounds bilaterally. There is no wheezing. ABDOMEN: Soft and nontender. There is no rebound or guarding. EXTREMITIES: Shows no leg edema or calf tenderness. There is no cyanosis or clubbing. IMPRESSION: 1. Acute respiratory failure. 2. Viral pneumonia and COVID-19 infection. 3. Anemia. 4. Oropharyngeal dysphagia. PLAN: 1. Continue physical therapy. 2. Continue speech therapy. 3. Wean oxygen. 4. Arrange for disposition. Brandon Avitia MD [facility]/SHELLIE /[id number]
--- NOTE | 2020-03-26 20:45 | NUR ---
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 Transferred to [facility]
--- NOTE | 2020-03-26 20:50 | Discharge Summary ---
PRIMARY CARE PHYSICIAN: No primary care physician listed. CONSULTING PHYSICIANS: Dr. Chula Schwab with Infectious Disease, Dr. Heriberto Ramsay with Urology, Dr. Brandon Avitia with Pulmonology Critical Care Medicine, Dr. Iain Avitia with Cardiology, Dr. Bigg Torres with Gastroenterology. CHIEF COMPLAINT: Dyspnea. HISTORY OF PRESENT ILLNESS: The patient is a 59-year-old female, admitted via the emergency department after feeling ill for 7 to 8 days prior to arrival with fever, dyspnea, and cough. Dyspnea was worse the previous few days prior to admission. PAST MEDICAL HISTORY: Hypertension. PAST SURGICAL HISTORY: Abdominoplasty and cholecystectomy. FAMILY HISTORY: Noncontributory. SOCIAL HISTORY: Denies any history of tobacco, alcohol, or illicit drug use. ALLERGIES: NO KNOWN ALLERGIES. ADMITTING DIAGNOSES: Include: 1. Acute respiratory failure. 2. Sepsis due to viral pneumonia due to coronavirus disease 2018. 3. Controlled hypertension. 4. Coagulopathy with elevated D-dimer due to acute respiratory failure. DISCHARGE DIAGNOSES: 1. Coronavirus disease 2019, status post acute respiratory distress syndrome and sepsis. 2. Controlled hypertension. 3. Transaminitis, resolved. 4. Generalized weakness, debility, ambulatory dysfunction. 5. Urinary retention. LABORATORY DATA: Please see history and physical for admitting lab values and diagnostic studies. HOSPITAL COURSE: The patient was admitted on or about 03/06/2020. Shortly after admission, the patient required intubation and sedation. She had acute fluid volume overload and pulmonary edema. Echocardiogram showed normal left ventricular size and function with an EF of 55%. She was intubated. An arterial line was placed on 03/07/2020. There were attempts to have the patient in prone position on 03/09. Ventilator settings; PRVC 24, tidal volume 360, FiO2 of 65%, PEEP of 12. Remdesivir was stopped as the patient went into respiratory failure. She was sedated in ICU in bed #190 on Versed and fentanyl drips. Also, she had pericarditis related to viral infection. Zithromax was stopped by Infectious Disease on 03/10/2020. Rocephin was discontinued on 03/11/2020. The patient was started on Merrem IV antibiotic. Pulmonology to continue to wean the ventilator as tolerated. The patient was on azithromycin, Rocephin, Lovenox, dexamethasone, vitamin C, vitamin D, and zinc sulfate for the COVID-19. On 03/11, chest x-ray showed extensive pneumonia, low lung volumes, possible small pleural effusions versus atelectasis. On 03/12, the patient was undergoing spontaneous breathing trials by Pulmonology. The patient was on vancomycin and Merrem. The patient was extubated on 03/16/2020. On 03/17, she had nausea and vomiting, shaked her head yes and no sometimes, but was nonverbal. She did follow simple commands. On 03/18, she was on 4 L of oxygen via nasal cannula. She was off antibiotics. The patient's said her first word since extubation on 03/19/2020. She shook her head yes or no. Order was entered for a bedside swallow evaluation and speech language evaluation as well as physical therapy evaluation. On 03/20, the patient failed her modified barium swallow. She was receiving tube feedings of Vital AF at 40 mL an hour via left NG tube. This remained in place. She was on oxygen at 3 L nasal cannula at that time, on a Protonix drip at 10 mL an hour via right PICC line PICC. The patient continued to progress with physical therapy. She increased her activity tolerance. She is able to take steps with chair followed by 2 to 3 steps at a time. Desaturating with gait to mid upper 80s. Modified barium swallow repeated today on 03/26, which the patient did fail again. She will continue with speech therapy and continue neuromuscular electrical stimulation at the [facility]. Most recent labs, 03/25; WBC 9.38, hemoglobin 11.1, hematocrit 34.3, and platelets 231. Sodium 136, potassium 4.6, chloride 101, CO2 of 27, BUN 17, creatinine 0.52, glucose 116. Per Tamra with Case Management, [facility] was denied. Bed was obtained at [facility], Room 502. Case discussed with Rohith, the patient's nurse. The patient has no new complaints. She had 4 to 5 BMs today and remains on tube feeding. Vital signs; temperature 97.3, heart rate 82, blood pressure 156/84, respirations 18, and oxygen saturation 100%. No change in physical examination. The patient is continue on her Vital AF tube feeding at 60 mL an hour. Activity as tolerated with assistance from physical therapy. The patient to follow up with physician at [facility]. Most recent vancomycin trough level on 03/14 was 5.4. Coronavirus PCR detected on 03/20. No growth from urine culture collected on 03/18, sputum culture collected on 03/09, blood cultures x2 collected on 03/06. Dictated by Ryan Murillo, ARETHA MD SONY DerasP/MODL /[id number]
--- NOTE | 2020-03-27 03:47 | Progress Note ---
DATE: 03/26/2020 SUBJECTIVE: remains in hospital, weak. No new complaint. NG tube in. Plan for finding her place at skilled care facility is still in progress. PHYSICAL EXAMINATION: GENERAL: Currently alert. VITAL SIGNS: Stable, afebrile. HEENT: She is not icteric. NECK: Supple. CHEST: Clear. HEART: S1, S2. ABDOMEN: Soft. IMPRESSION: COVID-19, debility. This is day #22, I saw her today, she is not infectious anymore. Could be discharged to her regular skill. She would need PT/OT and nutritional support. MD MARJAN Rapp/THOMASL /[id number]
== END 2020-03-26 21:26 | DRG 870 ==
LOC: FSED 13:14 → ERHOLD 16:12 → ICU 17:50 → IMCU 03-18 03:04
PROVIDERS: ADMIT Internal Medicine; ATTEND Internal Medicine
PROC: 5A1955Z Respiratory Ventilation, Greater than 96 Consecutive Hours (ICD-10-PCS; principal; 2020-03-06)
PROC: 0BH17EZ Insertion of Endotracheal Airway into Trachea, Via Natural or Artificial Opening (ICD-10-PCS; 2020-03-06)
PROC: 02HV33Z Insertion of Infusion Device into Superior Vena Cava, Percutaneous Approach (ICD-10-PCS; 2020-03-07)
PROC: 0BH17EZ Insertion of Endotracheal Airway into Trachea, Via Natural or Artificial Opening (ICD-10-PCS; 2020-03-07)
PROC: 5A1935Z Respiratory Ventilation, Less than 24 Consecutive Hours (ICD-10-PCS; 2020-03-07)
PROC: 03HY32Z Insertion of Monitoring Device into Upper Artery, Percutaneous Approach (ICD-10-PCS; 2020-03-08)
DX: A41.89 Other specified sepsis (principal); J96.01 Acute respiratory failure with hypoxia; J12.89 Other viral pneumonia; U07.1 COVID-19; J15.9 Unspecified bacterial pneumonia; D68.8 Other specified coagulation defects; N39.0 Urinary tract infection, site not specified; I10 Essential (primary) hypertension; R33.9 Retention of urine, unspecified; Z74.09 Other reduced mobility; Z90.49 Acquired absence of other specified parts of digestive tract; E66.9 Obesity, unspecified; Z68.27 Body mass index [BMI] 27.0-27.9, adult; E78.5 Hyperlipidemia, unspecified; D64.9 Anemia, unspecified; R13.10 Dysphagia, unspecified; R94.5 Abnormal results of liver function studies; K75.81 Nonalcoholic steatohepatitis (NASH)
CPT/HCPCS: 36415; 36569; 36600; 71045; 71250; 74018; 74230; 76700; 80048; 80053; 80061; 80076; 80202; 81001; 82150; 82607; 82728; 82746; 82805; 82948; 83036; 83540; 83690; 83735; 83880; 84100; 84145; 84443; 84466; 84484; 85025; 85045; 87040; 87070; 87086; 87205; 93005; 93306; 94002; 94003; 96361; 96365; 96372; 96376; 97139; 99285; J0330; J0360; J0456; J0696; J1100; J1644; J1650; J2001; J2060; J2250; J2270; J2405; J2765; J3010; J3370; J7030; J7040; J7050; J7121; Q9967; U0002